=== PATIENT | male | born 1940 | race African-American/Black ===

== ENCOUNTER 2016-05-05 11:36 | Inpatient (IN) | payer MEDICARE, OTHER ==
[2016-05-05 12:26] LABS: ABSOLUTE EOSINOPHILS # (AUTO) 0.2 10^3/uL (0.0-0.6); ABSOLUTE LYMPHOCYTES (AUTO) 1.2 10^3/uL (0.5-4.7); ABSOLUTE MONOCYTES (AUTO) 1.5 10^3/uL (0.1-1.4); ABSOLUTE NEUT (AUTO) 13.3 10^3/uL (1.7-8.2); BASOPHILS % (AUTO) 0.3 % (0-2); EOSINOPHILS % (AUTO) 1.1 % (0-6); HEMATOCRIT 32.1 % (37.9-51.0); HEMOGLOBIN 10.4 g/dL (13.5-17.0); HGB HCT DIFFERENCE -0.9; LYMPHOCYTES % (AUTO) 7.5 % (13-45); MEAN CORPUSCULAR HGB CONC 32.5 g/dL (32.0-36.0); MEAN CORPUSCULAR VOLUME 86 fl (80-97); RED BLOOD COUNT 3.72 10^6/uL (4.35-5.55); RED CELL DISTRIBUTION WIDTH 15.2 % (11.5-14.0); SEGMENTED NEUTROPHILS % (AUTO) 82.1 % (42-78); WHITE BLOOD COUNT 16.2 10^3/uL (4.0-10.5)
[2016-05-05 12:52] LABS: ALANINE AMINOTRANSFERASE 79 U/L (21-72); ALBUMIN 3.4 g/dL (3.5-5.0); ALKALINE PHOSPHATASE 143 U/L (38-126); ANION GAP 14 (5-19); ASPARTATE AMINO TRANSFERASE 58 U/L (17-59); BILIRUBIN,TOTAL 0.5 mg/dL (0.2-1.3); BLOOD UREA NITROGEN 61 mg/dL (7-20); CALCIUM 9.8 mg/dL (8.4-10.2); CARBON DIOXIDE 24 mmol/L (22-30); CHLORIDE 104 mmol/L (98-107); CREATINE KINASE 1431 U/L (55-170); CREATININE RESULT 3.35 mg/dL (0.52-1.25); GLUCOSE 184 mg/dL (75-110); POTASSIUM 4.9 mmol/L (3.6-5.0); SODIUM 141.7 mmol/L (137-145); TOTAL PROTEIN 6.8 g/dL (6.3-8.2)
[2016-05-05 13:01] LABS: CREATINE KINASE MB 12.6 ng/mL (<4.55)
[2016-05-05 13:04] LABS: TROPONIN I 0.27 ng/mL
--- NOTE | 2016-05-05 13:25 | ER Document Report ---
ED Respiratory Problem - General Mode of Arrival: Ambulatory Information source: Patient TRAVEL OUTSIDE OF THE [place] IN LAST 30 DAYS: No <EMI BANUELOS - Last Filed: 05/05/16 16:18> <HUMBERTO QURESHI - Last Filed: 05/05/16 19:59> - General Chief Complaint: Nausea/Vomiting/Diarrhea Stated Complaint: DIFFICULTY BREATHING Notes: Patient is a 75 year old male that presents to the emergency department today with complaints of shortness of breath with a cough of a one week duration. Patient was seen at his primary care physicians office and he was sent here on an ambulance secondary to his concerning respiratory status. Patient states that he has had sweats, chills, and diaphoresis as well. (EMI BANUELOS) - Related Data Allergies/Adverse Reactions: morphine [Morphine] Allergy (Severe, Verified 06/27/15 00:40) Hallucinations, Agitation Penicillins Allergy (Severe, Verified 06/27/15 00:40) Hallucinations, Agitation Home Medications: Current Home Medications Aspirin [Aspirin 325 mg Tablet] 325 mg PO DAILY 05/05/16 [History] Atorvastatin Calcium [Lipitor 80 mg Tablet] 80 mg PO QHS 05/05/16 [History] Bumetanide [Bumex 2 mg Tablet] 2 mg PO DAILY 05/05/16 [History] Clopidogrel Bisulfate [Plavix 75 mg Tablet] 75 mg PO DAILY 05/05/16 [History] Desipramine HCl [Norpramin 50 mg Tablet] 50 mg PO DAILY 05/05/16 [History] Hydrocodone/Acetaminophen [[place] 5-325 mg Tablet] 1 tab PO Q4HP PRN 05/05/16 [ History] Insulin Glargine,Hum.rec.anlog [Lantus Solostar] 40 units SQ QHS 05/05/16 [ History] Insulin Lispro [Humalog] 20 unit SQ QAM 05/05/16 [History] Isosorb Dinit/Hydralazine HCl [Bidil 20-37.5 mg Tablet] 1 tab PO Q8 05/05/16 [ History] Losartan Potassium [Cozaar 100 mg Tablet] 100 mg PO QAM 05/05/16 [History] Multivitamin [Multivitamins] 1 cap PO DAILY 05/05/16 [History] Tamsulosin HCl [Flomax 0.4 mg Cap.sr] 0.4 mg PO DAILY 05/05/16 [History] Past Medical History - General Information source: Patient, [facility] Records - Social History Smoking Status: Former Smoker Cigarette use (# per day): Yes Frequency of alcohol use: None Drug Abuse: None Lives with: Family Family History: Reviewed & Not Pertinent - Past Medical History Cardiac Medical History: Reports: Hx Congestive Heart Failure, Hx Heart Attack, Hx Hypercholesterolemia, Hx Hypertension Endocrine Medical History: Reports: Hx Diabetes Mellitus Type 2 Renal/ Medical History: Reports: Hx Benign Prostatic Hyperplasia, Hx Kidney Stones GI Medical History: Reports: Hx Gastroesophageal Reflux Disease, Hx Ulcer Past Surgical History: Reports: Hx Cardiac Surgery - Defibrilator, Hx Pacemaker - Immunizations Hx Diphtheria, Pertussis, Tetanus Vaccination: Yes Hx Pneumococcal Vaccination: 04/26/11 <EMI BANUELOS - Last Filed: 05/05/16 16:18> - Social History Cigarette use (# per day): No Chew tobacco use (# tins/day): No Smoking Education Provided: No - Past Medical History Cardiac Medical History: Reports: Hx Coronary Artery Disease, Hx Peripheral Vascular Disease, Other - Pulmonary hypertension Pulmonary Medical History: Reports: Hx COPD Musculoskeltal Medical History: Reports Hx Arthritis Psychiatric Medical History: Reports: None Past Surgical History: Reports: Hx Cardiac Catheterization, Hx Coronary Stent <HUMBERTO QURESHI - Last Filed: 05/05/16 19:59> Review of Systems - Review of Systems Constitutional: See HPI, Chills, Diaphoresis EENT: See HPI, Nose congestion Cardiovascular: No symptoms reported Respiratory: See HPI, Cough, Short of breath Gastrointestinal: No symptoms reported Genitourinary: No symptoms reported Male Genitourinary: No symptoms reported Musculoskeletal: No symptoms reported Skin: No symptoms reported Hematologic/Lymphatic: No symptoms reported Neurological/Psychological: No symptoms reported -: Yes All other systems reviewed and negative <EMI BANUELOS - Last Filed: 05/05/16 16:18> Physical Exam - General General appearance: Alert - HEENT Head: Normocephalic, Atraumatic Eyes: Normal Extraocular movements intact: Yes Sinus: Other - congestion - Respiratory Respiratory status: No respiratory distress Chest status: Nontender Breath sounds: Nonproductive cough - frequent during exam, Wheezing - faint wheeze, mostly clear throughout - Cardiovascular Rhythm: Regular Heart sounds: Normal auscultation Murmur: No - Abdominal Inspection: Normal Distension: No distension - Extremities General upper extremity: Edema - hands bilaterally, Left > Right General lower extremity: Edema - bilaterally with chronic venous stasis changes bilaterally, ulcerations - Neurological Neuro grossly intact: Yes Cognition: Normal Speech: Normal - Psychological Associated symptoms: Normal affect, Normal mood - Skin Skin Temperature: Warm Skin Moisture: Dry Skin Color: Normal <LAKISHAEMI - Last Filed: 05/05/16 16:18> Course - Laboratory Result Diagrams: 05/05/16 12:10 05/05/16 12:10 <EMI BANUELOS - Last Filed: 05/05/16 16:18> - Laboratory Result Diagrams: 05/05/16 12:10 05/05/16 12:10 - Diagnostic Test Radiology reviewed: Image reviewed, Reports reviewed - Mild cardiomegaly with mild pulmonary vascular congestion - EKG Interpretation by Al EKG shows normal: Sinus rhythm, Intervals, QRS Complexes. abnormal: [place], ST-T Waves - Diffuse borderline T abnormalities Rate: Normal - 98 Rhythm: PVC's [place]/QRS: Right axis deviation Heart block present: 1st Degree - Consults Dr. Maddox Time consulted: 16:15 Consulted provider: will come to ER <HUMBERTO QURESHI - Last Filed: 05/05/16 19:59> - Re-evaluation Re-evalutation: 05/05/16 16:04 The patient does have history COPD, reports his breathing improved considerably with the breathing treatments. He continues to be tachypneic and unable to speak in more than 2-3 word sentences. His pulse ox is remaining at the 98-99% on room air level. Chest x-ray shows mild pulmonary vascular congestion. His BNP today is 25,200 and on 12/19/2015 it was 2,050. His BUN and creatinine are unchanged from previous lab work. The troponin is 0.270, this has been trending upward over the past few years when he comes to the hospital. He will be given IV Lasix to see if some of the fluid can come off. (HUMBERTO QURESHI) - Vital Signs Vital signs: Temp Pulse Resp BP Pulse Ox 23 H 153/93 H 100 05/05/16 18:01 05/05/16 18:01 05/05/16 19:00 (EMI BANUELOS) (HUMBERTO QURESHI) - Laboratory Laboratory results interpreted by me: 05/05/16 05/05/16 05/05/16 12:10 12:10 12:10 WBC 16.2 H RBC 3.72 L Hgb 10.4 L Hct 32.1 L RDW 15.2 H Seg Neutrophils % 82.1 H Lymphocytes % 7.5 L Absolute Neutrophils 13.3 H Absolute Monocytes 1.5 H BUN 61 H Creatinine 3.35 H Est GFR ( Amer) 22 L Est GFR (Non-Af Amer) 18 L Glucose 184 H POC Glucose ALT 79 H Alkaline Phosphatase 143 H Creatine Kinase 1431 H CK-MB (CK-2) 12.60 H NT-Pro-B Natriuret Pep Albumin 3.4 L Urine Protein Urine Glucose (UA) Urine Blood Urine Ascorbic Acid 05/05/16 05/05/16 05/05/16 12:10 13:03 16:22 WBC RBC Hgb Hct RDW Seg Neutrophils % Lymphocytes % Absolute Neutrophils Absolute Monocytes BUN Creatinine Est GFR ( Amer) Est GFR (Non-Af Amer) Glucose POC Glucose 212 H ALT Alkaline Phosphatase Creatine Kinase CK-MB (CK-2) NT-Pro-B Natriuret Pep 64127 H Albumin Urine Protein >=500 H Urine Glucose (UA) >=500 H Urine Blood MODERATE H Urine Ascorbic Acid 40 H (EMI BANUELOS) (HUMBERTO QURESHI) Critical Care Note - Critical Care Note Total time excluding time spent on procedures (mins): 35 <HUMBERTO QURESHI - Last Filed: 05/05/16 19:59> Discharge <EMI BANUELOS - Last Filed: 05/05/16 16:18> - Discharge Admitting Provider: Hospitalist Unit Admitted: IMCU <HUMBERTO QURESHI - Last Filed: 05/05/16 19:59> - Discharge Clinical Impression: COPD exacerbation, Chronic renal failure, stage 4 (severe), Peripheral edema Congestive heart failure Qualifiers: Congestive heart failure type: unspecified congestive heart failure type Congestive heart failure chronicity: acute on chronic Qualified Code(s): I50.9 - Heart failure, unspecified Diabetes Qualifiers: Diabetes mellitus type: type 2 Diabetes mellitus complication status: with unspecified complications Diabetes mellitus penitentiary insulin use: with penitentiary use Qualified Code(s): E11.8 - Type 2 diabetes mellitus with unspecified complications; Z79.4 - technician terminal and repeater (current) use of insulin Rhabdomyolysis Qualifiers: Rhabdomyolysis type: non-traumatic Qualified Code(s): M62.82 - Rhabdomyolysis Condition: Good Disposition: ADMITTED INPATIENT Scribe Attestation: 05/05/16 16:17 I personally performed the services described in the documentation, reviewed and edited the documentation which was dictated to the scribe in my presence, and it accurately records my words and actions. (HUMBERTO QURESHI) Scribe Documentation - Scribe acting as scribe for :: Rivas <EMI BANUELOS - Last Filed: 05/05/16 16:18>
[2016-05-05] MEDS ORDERED: IPRATROPIUM/ALBUTEROL 0.5-2.5 MG/3 ML AMPUL NEB ONE (14:55)
[2016-05-05] MEDS ORDERED: FUROSEMIDE INJ/PF 100 MG/10 ML SDV IV ONE (16:00)
[2016-05-05 16:43] LABS: APPEARANCE,URINE SLIGHTLY-CLOUDY; BILIRUBIN,URINE NEGATIVE (NEGATIVE); GLUCOSE, URINE >=500 mg/dL (NEGATIVE); KETONES,URINE NEGATIVE (NEGATIVE); LEUKOCYTE ESTERASE,URINE NEGATIVE (NEGATIVE); NITRITE,URINE NEGATIVE (NEGATIVE); PROTEIN,URINE >=500 mg/dL (NEGATIVE); URINE SPECIFIC GRAVITY 1.018; UROBILINOGEN,URINE NEGATIVE mg/dL (<2.0)
--- NOTE | 2016-05-05 17:00 | EKG REPORT ---
SEVERITY:- ABNORMAL ECG - SINUS TACHYCARDIA VENTRICULAR PREMATURE COMPLEX FIRST DEGREE AV BLOCK BORDERLINE RIGHT AXIS DEVIATION BORDERLINE T ABNORMALITIES, DIFFUSE LEADS : Confirmed by: Shanna Kruse MD 05-May-2016 16:58:30
[2016-05-05] MEDS ORDERED: ACETAMINOPHEN 325 MG TABLET PO PRN (17:56)
[2016-05-05] MEDS ORDERED: ONDANSETRON HCL INJ/PF 4 MG/2 ML SDV IV PRN (17:56)
[2016-05-05] MEDS ORDERED: HYDROCODONE BIT/HOMATROPINE 5-1.5 MG TABLET PO PRN (18:11)
[2016-05-05] MEDS ORDERED: ALBUTEROL SULFATE 0.083% NEB 2.5 MG/3 ML AMPUL NEB PRN (18:13)
--- NOTE | 2016-05-05 18:43 | PDOC H&P ---
History of Present Illness Admission Date/PCP: 05/05/16 16:53 KRISTIN ANGELO Patient complains of: Shortness of breath with cough for 2 weeks History of Present Illness: LATASHA BARLOW is a 75 year old male Who presents to the emergency department from home with the assistance of his family after being sick at home for the last 2 weeks. He states it all started with a dry hacking cough and was quickly followed by dyspnea on exertion and then dyspnea at rest. He is also noticed increased swelling of his lower extremities and weight gain of more than 5 pounds during the first week in spite of escalating doses of diuretics. He notes the cough is often paroxysmal and leads to emesis and is also associated with left chest wall pain described as sharp stabbing grabbing tearing type pain only with deep inspiration or cough , alleviated with rest, nonradiating and without other associated symptoms. He reports subjective fevers and chills at home and no sick contacts among his family members. He has a known history of ischemic cardiomyopathy, last echocardiogram was in 2012 and showed an EF of 45-50%, left atrial enlargement, severe pulmonary hypertension, and moderate tricuspid regurgitation. He has known coronary artery disease status post stents 4 or 5 he's not sure. He thinks he had 3 stents placed the first time followed by 2 stents thereafter. He has supplemental O2 available to him at home to use on an as-needed basis. Evaluation in the emergency department is consistent with acute on chronic systolic heart failure with probable bacterial bronchitis and possible bacterial pneumonia. We were asked to admit for further investigation and management. Past Medical History Cardiac Medical History: Reports: Congestive Heart Failure, Coronary Artery Disease, Myocardial Infarction, Hyperlipidema, Hypertension, Peripheral Vascular Disease, Other - Pulmonary hypertension Pulmonary Medical History: Reports: Chronic Obstructive Pulmonary Disease (COPD) Denies: Tuberculosis Neurological Medical History: Denies: Seizures Endocrine Medical History: Reports: Diabetes Mellitus Type 2 Renal/ Medical History: Reports: Chronic Kidney Disease - stage4, followed by dr rasheed GI Medical History: Reports: Gastroesophageal Reflux Disease Musculoskeltal Medical History: Reports: Arthritis Psychiatric Medical History: Reports: None Denies: Depression Hematology: Reports: Anemia Past Surgical History Past Surgical History: Reports: Cardiac Catheterization, Coronary Stent, Pacemaker - PPM removed and replaced by ICD, Other - TURP Social History Lives with: Family Smoking Status: Former Smoker Frequency of Alcohol Use: None Hx Recreational Drug Use: No Drugs: None Hx Prescription Drug Abuse: No Family History Family History: Reviewed & Not Pertinent Parental Family History Reviewed: Yes Children Family History Reviewed: Yes Sibling(s) Family History Reviewed.: Yes Medication/Allergy Home Medications: Aspirin [Aspirin 325 mg Tablet] 325 mg PO DAILY 05/05/16 Atorvastatin Calcium [Lipitor 80 mg Tablet] 80 mg PO QHS 05/05/16 Bumetanide [Bumex 2 mg Tablet] 2 mg PO DAILY 05/05/16 Clopidogrel Bisulfate [Plavix 75 mg Tablet] 75 mg PO DAILY 05/05/16 Desipramine HCl [Norpramin 50 mg Tablet] 50 mg PO DAILY 05/05/16 Hydrocodone/Acetaminophen [[place] 5-325 mg Tablet] 1 tab PO Q4HP PRN 05/05/16 Insulin Glargine,Hum.rec.anlog [Lantus Solostar] 40 units SQ QHS 05/05/16 Insulin Lispro [Humalog] 20 unit SQ QAM 05/05/16 Isosorb Dinit/Hydralazine HCl [Bidil 20-37.5 mg Tablet] 1 tab PO Q8 05/05/16 Losartan Potassium [Cozaar 100 mg Tablet] 100 mg PO QAM 05/05/16 Multivitamin [Multivitamins] 1 cap PO DAILY 05/05/16 Tamsulosin HCl [Flomax 0.4 mg Cap.sr] 0.4 mg PO DAILY 05/05/16 Allergies/Adverse Reactions: morphine [Morphine] Allergy (Severe, Verified 06/27/15 00:40) Hallucinations, Agitation Penicillins Allergy (Severe, Verified 06/27/15 00:40) Hallucinations, Agitation Review of Systems Constitutional: ABSENT: chills, fever(s), headache(s), weight gain, weight loss Eyes: ABSENT: visual disturbances Ears: ABSENT: hearing changes Cardiovascular: PRESENT: chest pain, dyspnea on exertion, edema, orthropnea. ABSENT: palpitations Respiratory: PRESENT: cough, dyspnea. ABSENT: hemoptysis Gastrointestinal: PRESENT: vomiting. ABSENT: abdominal pain, constipation, diarrhea, hematemesis, hematochezia, nausea Genitourinary: ABSENT: dysuria, hematuria Musculoskeletal: ABSENT: joint swelling Integumentary: ABSENT: rash, wounds Neurological: ABSENT: abnormal gait, abnormal speech, confusion, dizziness, focal weakness, syncope Psychiatric: ABSENT: anxiety, depression, homidical ideation, suicidal ideation Endocrine: ABSENT: cold intolerance, heat intolerance, polydipsia, polyuria Hematologic/Lymphatic: ABSENT: easy bleeding, easy bruising Physical Exam Vital Signs: Temp Pulse Resp BP Pulse Ox 21 H 169/94 H 98 05/05/16 17:00 05/05/16 17:01 05/05/16 17:01 General appearance: PRESENT: mild distress, well-developed, well-nourished Head exam: PRESENT: atraumatic, normocephalic Eye exam: PRESENT: conjunctiva pink, EOMI, PERRLA. ABSENT: scleral icterus Mouth exam: PRESENT: dry mucosa, tongue midline Throat exam: ABSENT: post pharyngeal erythema, tonsillar erythema Neck exam: PRESENT: JVD - only 2cm. ABSENT: carotid bruit, lymphadenopathy, thyromegaly Respiratory exam: PRESENT: chest wall tenderness - left chest wall, rales - coarse at the bases and fine at the apices. ABSENT: rhonchi, wheezes Cardiovascular exam: PRESENT: RRR. ABSENT: diastolic murmur, rubs, systolic murmur Pulses: PRESENT: normal dorsalis pedis pul Vascular exam: PRESENT: normal capillary refill GI/Abdominal exam: PRESENT: mass, normal bowel sounds, organolmegaly, soft. ABSENT: distended, guarding, rebound, tenderness Rectal exam: PRESENT: deferred Extremities exam: PRESENT: full ROM, pedal edema, +2 edema. ABSENT: calf tenderness, clubbing Musculoskeletal exam: PRESENT: full ROM Neurological exam: PRESENT: alert, awake, oriented to person, oriented to place , oriented to time, oriented to situation, motor sensory deficit Psychiatric exam: PRESENT: appropriate affect, normal mood. ABSENT: homicidal ideation, suicidal ideation Skin exam: PRESENT: cyanosis, rash - vitiligo and acrocyanotic changes BLEs, warm. ABSENT: dry Results Laboratory Results: Labs- All tests 24 hr 05/05/16 05/05/16 05/05/16 12:10 12:10 12:10 WBC 16.2 H RBC 3.72 L Hgb 10.4 L Hct 32.1 L MCV 86 MCH 28.0 MCHC 32.5 RDW 15.2 H Plt Count 319 Seg Neutrophils % 82.1 H Lymphocytes % 7.5 L Monocytes % 9.0 Eosinophils % 1.1 Basophils % 0.3 Absolute Neutrophils 13.3 H Absolute Lymphocytes 1.2 Absolute Monocytes 1.5 H Absolute Eosinophils 0.2 Absolute Basophils 0.0 Sodium 141.7 Potassium 4.9 Chloride 104 Carbon Dioxide 24 Anion Gap 14 BUN 61 H Creatinine 3.35 H Est GFR ( Amer) 22 L Est GFR (Non-Af Amer) 18 L Glucose 184 H POC Glucose Calcium 9.8 Total Bilirubin 0.5 Direct Bilirubin 0.0 AST 58 ALT 79 H Alkaline Phosphatase 143 H Creatine Kinase 1431 H CK-MB (CK-2) 12.60 H Troponin I 0.270 NT-Pro-B Natriuret Pep Total Protein 6.8 Albumin 3.4 L Urine Color Urine Appearance Urine pH Ur Specific [place] Urine Protein Urine Glucose (UA) Urine Ketones Urine Blood Urine Nitrite Urine Bilirubin Urine Urobilinogen Ur Leukocyte Esterase Urine WBC (Auto) Urine RBC (Auto) Squamous Epi Cells Auto Urine Mucus (Auto) Urine Ascorbic Acid 05/05/16 05/05/16 05/05/16 12:10 13:03 16:22 WBC RBC Hgb Hct MCV MCH MCHC RDW Plt Count Seg Neutrophils % Lymphocytes % Monocytes % Eosinophils % Basophils % Absolute Neutrophils Absolute Lymphocytes Absolute Monocytes Absolute Eosinophils Absolute Basophils Sodium Potassium Chloride Carbon Dioxide Anion Gap BUN Creatinine Est GFR ( Amer) Est GFR (Non-Af Amer) Glucose POC Glucose 212 H Calcium Total Bilirubin Direct Bilirubin AST ALT Alkaline Phosphatase Creatine Kinase CK-MB (CK-2) Troponin I NT-Pro-B Natriuret Pep 64181 H Total Protein Albumin Urine Color YELLOW Urine Appearance SLIGHTLY-CLOUDY Urine pH 5.0 Ur Specific [place] 1.018 Urine Protein >=500 H Urine Glucose (UA) >=500 H Urine Ketones NEGATIVE Urine Blood MODERATE H Urine Nitrite NEGATIVE Urine Bilirubin NEGATIVE Urine Urobilinogen NEGATIVE Ur Leukocyte Esterase NEGATIVE Urine WBC (Auto) 2 Urine RBC (Auto) 1 Squamous Epi Cells Auto <1 Urine Mucus (Auto) RARE Urine Ascorbic Acid 40 H EKG Comments: Normal sinus rhythm with interventricular conduction delay suggestive of an early left bundle branch block incomplete corrected QTC is 460 Impressions: Chest X-Ray 05/05/16 11:37 IMPRESSION: Mild cardiomegaly and mild vascular congestion. Status: Image reviewed by me Assessment & Plan - Diagnosis (1) Acute on chronic systolic heart failure Is this a current diagnosis for this admission?: YesPlan: Patient is unsure of his usual diuretic dose so we'll begin with Lasix 40 mg IV twice a day and titrate to effect paying close attention to his renal function and volume status. Will hold beta batsheva use and nitroglycerin use for now pending further evaluation. Hold LEELEE inhibitor and ARB use due to chronic kidney disease stage IV. (2) Acute bacterial bronchitis Is this a current diagnosis for this admission?: YesPlan: Start empiric Rocephin and Zithromax. Supplemental O2 as needed. Nebulizers as needed. (3) Chest pain, pleuritic Is this a current diagnosis for this admission?: YesPlan: Chest wall pain is reproducible both on exam and with inspiration I do not think this is cardiac in nature. I believe his elevated troponin is due to his chronic kidney disease and the acuity of his illness. Add mild cough suppressant (4) COPD (chronic obstructive pulmonary disease) Qualifiers: COPD type: emphysema Emphysema type: unspecified Qualified Code( s): J43.9 - Emphysema, unspecified Is this a current diagnosis for this admission?: YesPlan: As above (5) CAD (coronary artery disease), [place] coronary artery Qualifiers: [place] vs. transplanted heart: [place] heart Associated angina: without angina Qualified Code(s): I25.10 - Atherosclerotic heart disease of [place] coronary artery without angina pectoris Is this a current diagnosis for this admission?: YesPlan: Trend cardiac enzymes and BNP (6) Cardiac dysrhythmia, unspecified Qualifiers: Arrhythmia type: unspecified cardiac arrhythmia Qualified Code(s): I49.9 - Cardiac arrhythmia, unspecified Is this a current diagnosis for this admission?: YesPlan: has ICD in place (7) Chronic renal failure, stage 4 (severe) Is this a current diagnosis for this admission?: YesPlan: Careful attention will need to be paid to his volume status and renal function; consult nephrology for decline in function. (8) Diabetes Qualifiers: Diabetes mellitus type: type 2 Diabetes mellitus complication status: with unspecified complications Diabetes mellitus interpersonal communications professor insulin use: with interpersonal communications professor use Qualified Code(s): E11.8 - Type 2 diabetes mellitus with unspecified complications; Z79.4 - halfway (current) use of insulin Is this a current diagnosis for this admission?: YesPlan: Cover with basal bolus insulin - Time Time Spent: 30 to 50 Minutes Medications reviewed and adjusted accordingly: Yes Anticipated discharge: Home Within: Other - Once patient stabilizes
[2016-05-05] MEDS ORDERED: DEXTROSE 40% GEL 15 GM TUBE PO PRN ×2 (18:53)
[2016-05-05] MEDS ORDERED: GLUCAGON,HUMAN RECOMB 1 MG INJ IM PRN (18:53)
[2016-05-05] MEDS ORDERED: DEXTROSE 50%-WATER 25 GM/50 ML DISP.SYRIN IV PRN ×2 (18:53)
[2016-05-05] MEDS ORDERED: HYDROCODONE/ACETAMINOPHEN 5-325 MG TABLET PO PRN (18:56)
[2016-05-05] MEDS ORDERED: CEFTRIAXONE 1 GM/D5W RTU 1 GM/50 ML RTUPB IV SCH (19:00)
[2016-05-05 19:37] LABS: CREATINE KINASE MB 11.7 ng/mL (<4.55)
[2016-05-05 19:45] LABS: TROPONIN I 0.249 ng/mL
[2016-05-05] MEDS ORDERED: INSULIN GLARGINE,HUM.REC.ANLOG 300 UNIT/3 ML INSULN.PEN SUBCUT SCH (22:00)
[2016-05-05] MEDS: ISOSORB DINIT/HYDRALAZINE HCL 20-37.5 MG TABLET PO SCH (22:45)
[2016-05-05] MEDS: FUROSEMIDE INJ/PF 40 MG/4 ML SDV IV SCH (22:46)
[2016-05-05] MEDS: PANTOPRAZOLE SODIUM 40 MG VIAL IV SCH (22:46)
[2016-05-05] MEDS: HEPARIN SOD (PORCINE) 5,000 UNIT/ML 1 ML SYRINGE SUBCUT SCH (22:46)
[2016-05-05] MEDS: AZITHROMYCIN 500 MG in DEXTROSE 5%-WATER 250 ML IV SCH (22:47)
[2016-05-05] MEDS: INSULIN LISPRO 100 UNIT/ML 3 ML VIAL SUBCUT PRN (22:47)
[2016-05-06] MEDS: CEFTRIAXONE 1 GM/D5W RTU 1 GM/50 ML RTUPB IV SCH (00:31)
[2016-05-06 01:59] LABS: CREATINE KINASE MB 8.95 ng/mL (<4.55)
[2016-05-06 02:04] LABS: TROPONIN I 0.206 ng/mL
[2016-05-06] MEDS: HEPARIN SOD (PORCINE) 5,000 UNIT/ML 1 ML SYRINGE SUBCUT SCH ×3 (05:44→22:49)
[2016-05-06] MEDS: ISOSORB DINIT/HYDRALAZINE HCL 20-37.5 MG TABLET PO SCH ×3 (05:44→22:50)
[2016-05-06] MEDS: INSULIN LISPRO 100 UNIT/ML 3 ML VIAL SUBCUT PRN ×4 (07:42→22:49)
[2016-05-06 07:46] LABS: HEMATOCRIT 28.3 % (37.9-51.0); HEMOGLOBIN 9.2 g/dL (13.5-17.0); HGB HCT DIFFERENCE -0.7; MEAN CORPUSCULAR HEMOGLOBIN 27.7 pg (27.0-33.4); MEAN CORPUSCULAR HGB CONC 32.5 g/dL (32.0-36.0); MEAN CORPUSCULAR VOLUME 85 fl (80-97); RED BLOOD COUNT 3.31 10^6/uL (4.35-5.55); RED CELL DISTRIBUTION WIDTH 15.6 % (11.5-14.0); WHITE BLOOD COUNT 16.3 10^3/uL (4.0-10.5)
[2016-05-06 07:48] LABS: CREATINE KINASE MB 7.07 ng/mL (<4.55); MAGNESIUM 2.1 mg/dL (1.6-2.3); PHOSPHORUS 3.7 mg/dL (2.5-4.5)
[2016-05-06 08:17] LABS: TROPONIN I 0.211 ng/mL
[2016-05-06 08:29] LABS: BASOPHILS % (MANUAL) 0 % (0-2); EOSINOPHILS % (MANUAL) 0 % (0-6); LYMPHOCYTES % (MANUAL) 2 % (13-45); TOTAL CELLS COUNTED 100
[2016-05-06 08:30] LABS: ANISOCYTOSIS 1+
[2016-05-06] MEDS: CLOPIDOGREL BISULFATE 75 MG TABLET PO SCH (09:03)
[2016-05-06] MEDS: MULTIVITAMIN TABLET PO SCH (09:03)
[2016-05-06] MEDS: TAMSULOSIN HCL 0.4 MG CAP.SR.24H PO SCH (09:03)
[2016-05-06] MEDS: PANTOPRAZOLE SODIUM 40 MG VIAL IV SCH ×2 (09:03→22:49)
[2016-05-06] MEDS: ASPIRIN 81 MG TABLET, ENT COATED PO SCH (09:03)
[2016-05-06] MEDS: FUROSEMIDE INJ/PF 40 MG/4 ML SDV IV SCH ×2 (09:04→22:49)
[2016-05-06] MEDS ORDERED: (PENDING PHARMACY ID) (Multivitamin [Multivitamins] 1 CAP) PO SCH (10:00)
--- NOTE | 2016-05-06 13:00 | PDOC PROGRESS REPORT ---
Subjective Progress Note for:: 05/06/16 Subjective:: LATASHA BARLOW is a 75 year old male Who presented to the emergency department from home with the assistance of his family after being sick at home for the last 2 weeks. He states it all started with a dry hacking cough and was quickly followed by dyspnea on exertion and then dyspnea at rest. He is also noticed increased swelling of his lower extremities and weight gain of more than 5 pounds during the first week in spite of escalating doses of diuretics. He notes the cough is often paroxysmal and leads to emesis and is also associated with left chest wall pain described as sharp stabbing grabbing tearing type pain only with deep inspiration or cough, alleviated with rest, nonradiating and without other associated symptoms. He reports subjective fevers and chills at home and no sick contacts among his family members. He has a known history of ischemic cardiomyopathy, last echocardiogram was in 2012 and showed an EF of 45-50%, left atrial enlargement, severe pulmonary hypertension, and moderate tricuspid regurgitation. He has known coronary artery disease status post stents 4 or 5 he's not sure. He thinks he had 3 stents placed the first time followed by 2 stents thereafter. He has supplemental O2 available to him at home to use on an as-needed basis. Evaluation in the emergency department is consistent with acute on chronic systolic heart failure with probable bacterial bronchitis and possible bacterial pneumonia. We were asked to admit for further investigation and management. Symptoms have improved with treatment. ROS: Total 10 systems are reviewed with the patient pertinent positives and negatives noted above remaining systems are negative. Physical Exam Vital Signs: Temp Pulse Resp BP Pulse Ox 97.4 F 88 19 137/67 H 98 05/06/16 11:34 05/06/16 11:34 05/06/16 11:34 05/06/16 11:34 05/06/16 11:34 Pulse Oximeter Continuous Start: 05/05/16 17: 58 Freq: RTQ4 Status: Active Document 05/06/16 07:57 [facility] (Rec: 05/06/16 07:57 [facility] [email or web address]) Pulse Oximetry Assessment Oxygen Saturation (92-100) 100 Oxygen Delivery Method Room Air Equipment Usage Equipment in Use Continuous SpO2 Machine # 9 Intake & Output 05/05/16 05/06/16 05/07/16 06:59 06:59 06:59 Intake Total 562 Output Total 575 Balance -13 Weight 90.4 kg General appearance: PRESENT: no acute distress, cooperative Eye exam: PRESENT: EOMI, PERRLA Mouth exam: PRESENT: moist, other - No oral lesions Neck exam: PRESENT: full ROM. ABSENT: JVD - JVD resolved Respiratory exam: PRESENT: crackles - Bilateral bases. ABSENT: accessory muscle use, rhonchi, wheezes Cardiovascular exam: PRESENT: RRR. ABSENT: systolic murmur Pulses: PRESENT: normal carotid pulses, normal radial pulses GI/Abdominal exam: PRESENT: normal bowel sounds, soft. ABSENT: tenderness Extremities exam: PRESENT: +2 edema - Unchanged. ABSENT: calf tenderness Musculoskeletal exam: PRESENT: full ROM - Strength about 4 out of 5 in all major muscle groups Neurological exam: PRESENT: alert, awake, oriented to time, oriented to situation Psychiatric exam: PRESENT: appropriate affect, normal mood Skin exam: PRESENT: normal color - Overall color improved. ABSENT: dry Results Laboratory Results: 05/06/16 05:32 05/06/16 05/06/16 05:32 05:32 WBC 16.3 H RBC 3.31 L Hgb 9.2 L Hct 28.3 L MCV 85 MCH 27.7 MCHC 32.5 RDW 15.6 H Plt Count 278 Seg Neutrophils % Not Reportable Lymphocytes % Not Reportable Monocytes % Not Reportable Eosinophils % Not Reportable Basophils % Not Reportable Absolute Neutrophils Not Reportable Absolute Lymphocytes Not Reportable Absolute Monocytes Not Reportable Absolute Eosinophils Not Reportable Absolute Basophils Not Reportable Phosphorus 3.7 Magnesium 2.1 05/05/16 05/05/16 05/06/16 18:58 18:58 00:28 Creatine Kinase 1377 H 1204 H CK-MB (CK-2) 11.70 H Troponin I 0.249 NT-Pro-B Natriuret Pep 05/06/16 05/06/16 05/06/16 00:28 05:32 05:32 Creatine Kinase 997 H CK-MB (CK-2) 8.95 H 7.07 H Troponin I 0.206 0.211 NT-Pro-B Natriuret Pep 82511 H Impressions: Chest X-Ray 05/05/16 11:37 IMPRESSION: Mild cardiomegaly and mild vascular congestion. Assessment & Plan - Diagnosis (1) Acute on chronic systolic heart failure Is this a current diagnosis for this admission?: YesPlan: Continue Lasix 40 mg IV twice a day and titrate to effect paying close attention to his renal function and volume status. Will hold beta batsheva use and nitroglycerin use for now pending further evaluation. Hold LEELEE inhibitor and ARB use due to chronic kidney disease stage IV. LV function still unknown awaiting echocardiogram results (2) Acute bacterial bronchitis Is this a current diagnosis for this admission?: YesPlan: Improved. Continue Rocephin and Zithromax. Supplemental O2 as needed. Nebulizers as needed. (3) Chest pain, pleuritic Is this a current diagnosis for this admission?: YesPlan: Resolved. Chest wall pain is reproducible both on exam and with inspiration I do not think this is cardiac in nature. I believe his elevated troponin is due to his chronic kidney disease and the acuity of his illness. Add mild cough suppressant (4) COPD (chronic obstructive pulmonary disease) Qualifiers: COPD type: emphysema Emphysema type: unspecified Qualified Code( s): J43.9 - Emphysema, unspecified Is this a current diagnosis for this admission?: YesPlan: As above, still no evidence for an acute exacerbation, no bronchospasm evident on exam (5) CAD (coronary artery disease), [place] coronary artery Qualifiers: [place] vs. transplanted heart: [place] heart Associated angina: without angina Qualified Code(s): I25.10 - Atherosclerotic heart disease of [place] coronary artery without angina pectoris Is this a current diagnosis for this admission?: YesPlan: cardiac enzymes have trended flat and BNP unchanged. Review the old record indicates his cardiac enzymes have been abnormal for years often to the same level; as his chest pain is reproducible on exam no further intervention is indicated at this time (6) Cardiac dysrhythmia, unspecified Qualifiers: Arrhythmia type: unspecified cardiac arrhythmia Qualified Code(s): I49.9 - Cardiac arrhythmia, unspecified Is this a current diagnosis for this admission?: YesPlan: has ICD in place; no evidence for cardiac dysrhythmia noted on telemetry monitoring overnight (7) Chronic renal failure, stage 4 (severe) Is this a current diagnosis for this admission?: YesPlan: Stable. Repeat Chem-7 in the morning. Careful attention will need to be paid to his volume status and renal function; consult nephrology for decline in function. (8) Diabetes Qualifiers: Diabetes mellitus type: type 2 Diabetes mellitus complication status: with unspecified complications Diabetes mellitus terminal operator insulin use: with terminal operator use Qualified Code(s): E11.8 - Type 2 diabetes mellitus with unspecified complications; Z79.4 - [facility] (current) use of insulin Is this a current diagnosis for this admission?: YesPlan: Poorly controlled hemoglobin A1c greater than 11; increase basal and continue to Cover with bolus insulin (9) Weakness generalized Is this a current diagnosis for this admission?: YesPlan: Start physical therapy, consult case management for rehabilitation options. Patient's is disabled at home and unable to care for him alone. - Time Time Spent with patient: 35 or more minutes Anticipated discharge: Other - Home with home health versus SNF depending on clinical course Within: within 48 hours
--- NOTE | 2016-05-06 15:31 | Physician Advisory Note ---
Physician Advisor ProgressNote .: Pursuant to the plan for [facility], I have reviewed the medical record for this patient. Physician Advisor Statement: Excellent documentation of co-morbidities overall! Possible documentation opportunities if attending agrees: 1. "CP, likely due to " [please spell out causes explicitly for coders - 'noncardiac' is not sufficient] Thanks for your help with documentation accuracy/specificity improvement! Adrianne Gipson MD [facility] Physician Advisor, Fellow of Hospital Medicine
--- NOTE | 2016-05-06 18:48 | XCELERA REPORT ---
[address] [address] Transthoracic Echocardiogram Report Name: LATASHA BARLOW Age: 75 yrs Gender: Male : 1940 Patient Status: Inpatient Patient Location: [id number]\A Study Date: 05/06/2016 03:26 PM Height: 67 in Weight: 180 lb BSA: 1.9 m2 Procedure: A complete two-dimensional transthoracic echocardiogram was performed (2D, M-mode, spectral and color flow Doppler). The study was technically difficult with many images being suboptimal in quality. Reason For Study: chf Ordering Physician: WING MCKEON Performed By: Manasa Perez Interpretation Summary LV EF is 40% Left ventricular systolic function is mild to moderately reduced. Doppler measurements suggest pseudonormalized left ventricular relaxation, which is associated with grade II/IV or mild to moderate diastolic dysfunction There is mild concentric left ventricular hypertrophy. The left ventricle is grossly normal size. There is mild to moderate global hypokinesis of the left ventricle. The right ventricular systolic function is mildly reduced. The right ventricle is mild to moderately dilated. The left atrium is moderately dilated. The right atrium is mild to moderately dilated. There is a mild amount of mitral regurgitation There is no mitral valve stenosis. No aortic regurgitation is present. There is no aortic valve stenosis There is a mild amount of tricuspid regurgitation There is moderate to severe pulmonary hypertension by echo Right ventricular systolic pressure is estimated to be elevated at 50- 60mmHg. The aortic root is not well visualized. The inferior vena cava appeared normal and decreased > 50% with respiration (RAP 5-10 mmHg) There is no pericardial effusion. MMode/2D Measurements \T\ Calculations RVDd: 4.0 cm LVIDd: 5.5 cm FS: 20.0 % Ao root diam: 3.1 cm IVSd: 0.96 cm LVIDs: 4.4 cm EDV(Teich): 147.5 ml LVPWd: 1.00 cm ESV(Teich): 87.7 ml Ao root area: 7.4 cm2 EF(Teich): 40.5 % LA dimension: 4.5 cm Doppler Measurements \T\ Calculations MV E max heriberto: MV P1/2t max heriberto: Ao V2 max: LV V1 max P.9 cm/sec 120.9 cm/sec 135.1 cm/sec 4.5 mmHg MV A max heriberto: MV P1/2t: 50.7 msec Ao max PG: LV V1 max: 51.3 cm/sec 7.3 mmHg 106.1 cm/sec MV E/A: 2.4 MVA(P1/2t): 4.3 cm2 MV dec slope: 698.0 cm/sec2 MV dec time: 0.17 sec PA V2 max: PI end-d heriberto: TR max heriberto: 80.5 cm/sec 176.5 cm/sec 384.1 cm/sec PA max PG: TR max P.6 mmHg 59.0 mmHg Left Ventricle The left ventricle is grossly normal size. There is mild concentric left ventricular hypertrophy. Left ventricular systolic function is mild to moderately reduced. LV EF is 40%. Doppler measurements suggest pseudonormalized left ventricular relaxation, which is associated with grade II/IV or mild to moderate diastolic dysfunction. There is mild to moderate global hypokinesis of the left ventricle. Right Ventricle The right ventricle is mild to moderately dilated. There is normal right ventricular wall thickness. The right ventricular systolic function is mildly reduced. Atria The right atrium is mild to moderately dilated. The left atrium is moderately dilated. Interarterial septum not well visualized and not well dopplered. Cannot comment on ASD/PFO presence. Mitral Valve The mitral valve leaflets are sclerotic, but show no functional abnormalities. There is no mitral valve stenosis. There is a mild amount of mitral regurgitation. Aortic Valve The aortic valve is grossly normal. There is no aortic valve stenosis. No aortic regurgitation is present. Tricuspid Valve The tricuspid valve is not well visualized, but is grossly normal. There is no tricuspid stenosis. There is a mild amount of tricuspid regurgitation. There is moderate to severe pulmonary hypertension by echo. Right ventricular systolic pressure is estimated to be elevated at 50-60mmHg. Pulmonic Valve The pulmonic valve is not well visualized. Great Vessels The aortic root is not well visualized. The inferior vena cava appeared normal and decreased > 50% with respiration (RAP 5-10 mmHg). Effusions There is no pericardial effusion. Incidental Findings Pacemaker wire noted. : WING MCKEON > Vani Suero
[2016-05-06] MEDS: INSULIN GLARGINE,HUM.REC.ANLOG 300 UNIT/3 ML INSULN.PEN SUBCUT SCH (22:49)
[2016-05-06] MEDS: AZITHROMYCIN 500 MG in DEXTROSE 5%-WATER 250 ML IV SCH (22:50)
[2016-05-07] MEDS: CEFTRIAXONE 1 GM/D5W RTU 1 GM/50 ML RTUPB IV SCH (01:01)
[2016-05-07 05:15] LABS: ABSOLUTE BASOPHILS # (AUTO) 0.1 10^3/uL (0.0-0.2); ABSOLUTE EOSINOPHILS # (AUTO) 0.2 10^3/uL (0.0-0.6); ABSOLUTE LYMPHOCYTES (AUTO) 1.8 10^3/uL (0.5-4.7); ABSOLUTE NEUT (AUTO) 10.3 10^3/uL (1.7-8.2); BASOPHILS % (AUTO) 0.7 % (0-2); EOSINOPHILS % (AUTO) 1.5 % (0-6); HEMATOCRIT 27.2 % (37.9-51.0); HEMOGLOBIN 9.2 g/dL (13.5-17.0); HGB HCT DIFFERENCE 0.4; LYMPHOCYTES % (AUTO) 13.6 % (13-45); MEAN CORPUSCULAR HEMOGLOBIN 28.5 pg (27.0-33.4); MEAN CORPUSCULAR HGB CONC 33.9 g/dL (32.0-36.0); MEAN CORPUSCULAR VOLUME 84 fl (80-97); MONOCYTES % (AUTO) 7.3 % (3-13); RED BLOOD COUNT 3.23 10^6/uL (4.35-5.55); RED CELL DISTRIBUTION WIDTH 15.8 % (11.5-14.0); SEGMENTED NEUTROPHILS % (AUTO) 76.9 % (42-78); WHITE BLOOD COUNT 13.4 10^3/uL (4.0-10.5)
[2016-05-07 05:28] LABS: ANION GAP 11 (5-19); BLOOD UREA NITROGEN 66 mg/dL (7-20); CALCIUM 9.4 mg/dL (8.4-10.2); CARBON DIOXIDE 23 mmol/L (22-30); CHLORIDE 104 mmol/L (98-107); GLUCOSE 132 mg/dL (75-110); POTASSIUM 4.8 mmol/L (3.6-5.0); SODIUM 138.3 mmol/L (137-145)
[2016-05-07] MEDS: HEPARIN SOD (PORCINE) 5,000 UNIT/ML 1 ML SYRINGE SUBCUT SCH ×3 (06:07→22:14)
[2016-05-07] MEDS: ISOSORB DINIT/HYDRALAZINE HCL 20-37.5 MG TABLET PO SCH ×3 (06:07→22:14)
[2016-05-07] MEDS: MULTIVITAMIN TABLET PO SCH (10:48)
[2016-05-07] MEDS: TAMSULOSIN HCL 0.4 MG CAP.SR.24H PO SCH (10:49)
[2016-05-07] MEDS: PANTOPRAZOLE SODIUM 40 MG VIAL IV SCH (10:49)
[2016-05-07] MEDS: ASPIRIN 81 MG TABLET, ENT COATED PO SCH (10:49)
[2016-05-07] MEDS: FUROSEMIDE INJ/PF 40 MG/4 ML SDV IV SCH (10:49)
[2016-05-07] MEDS: CLOPIDOGREL BISULFATE 75 MG TABLET PO SCH (10:49)
--- NOTE | 2016-05-07 12:18 | PDOC PROGRESS REPORT ---
Subjective Progress Note for:: 05/07/16 Subjective:: LATASHA BARLOW is a 75 year old male Who presented to the emergency department from home with the assistance of his family after being sick at home for the last 2 weeks. He states it all started with a dry hacking cough and was quickly followed by dyspnea on exertion and then dyspnea at rest. He is also noticed increased swelling of his lower extremities and weight gain of more than 5 pounds during the first week in spite of escalating doses of diuretics. He notes the cough is often paroxysmal and leads to emesis and is also associated with left chest wall pain described as sharp stabbing grabbing tearing type pain only with deep inspiration or cough, alleviated with rest, nonradiating and without other associated symptoms. He reports subjective fevers and chills at home and no sick contacts among his family members. He has a known history of ischemic cardiomyopathy, last echocardiogram was in 2012 and showed an EF of 45-50%, left atrial enlargement, severe pulmonary hypertension, and moderate tricuspid regurgitation. He has known coronary artery disease status post stents 4 or 5 he's not sure. He thinks he had 3 stents placed the first time followed by 2 stents thereafter. He has supplemental O2 available to him at home to use on an as-needed basis. Evaluation in the emergency department is consistent with acute on chronic systolic heart failure with probable bacterial bronchitis and possible bacterial pneumonia. We were asked to admit for further investigation and management. Symptoms have improved with treatment. JVD is resolved, lower extremity edema improved ROS: Total 10 systems are reviewed with the patient pertinent positives and negatives noted above remaining systems are negative. Physical Exam Vital Signs: Temp Pulse Resp BP Pulse Ox 98.0 F 89 19 116/66 99 05/07/16 07:49 05/07/16 07:49 05/07/16 07:49 05/07/16 07:49 05/07/16 07:49 Pulse Oximeter Continuous Start: 05/05/16 17: 58 Freq: RTQ4 Status: Active Document 05/07/16 04:00 [facility] (Rec: 05/07/16 05:17 [facility] [email or web address]) Pulse Oximetry Assessment Oxygen Saturation (92-100) 100 Oxygen Delivery Method Room Air Fraction of Inspired Oxygen (FIO2) 21 Equipment Usage Equipment in Use Continuous SpO2 Machine # 9 Intake & Output 05/06/16 05/07/1605/08/17 06:59 06:59 06:59 Intake Total 562 1897 Output Total 575 1200 Balance -13 697 Weight 90.4 kg 89.1 kg General appearance: PRESENT: no acute distress, cooperative Eye exam: PRESENT: EOMI, PERRLA. ABSENT: conjunctival injection Neck exam: PRESENT: other - Supple. ABSENT: JVD Respiratory exam: PRESENT: clear to auscultation gabriel, unlabored. ABSENT: accessory muscle use Cardiovascular exam: PRESENT: RRR. ABSENT: systolic murmur GI/Abdominal exam: PRESENT: normal bowel sounds, soft. ABSENT: tenderness Extremities exam: PRESENT: +2 edema. ABSENT: calf tenderness Neurological exam: PRESENT: alert, awake, oriented to person, oriented to place , oriented to situation Skin exam: PRESENT: cyanosis - As before Results Laboratory Results: 05/07/16 04:13 05/07/16 04:13 05/07/16 05/07/16 04:13 04:13 WBC 13.4 H RBC 3.23 L Hgb 9.2 L Hct 27.2 L MCV 84 MCH 28.5 MCHC 33.9 RDW 15.8 H Plt Count 286 Seg Neutrophils % 76.9 Lymphocytes % 13.6 Monocytes % 7.3 Eosinophils % 1.5 Basophils % 0.7 Absolute Neutrophils 10.3 H Absolute Lymphocytes 1.8 Absolute Monocytes 1.0 Absolute Eosinophils 0.2 Absolute Basophils 0.1 Sodium 138.3 Potassium 4.8 Chloride 104 Carbon Dioxide 23 Anion Gap 11 BUN 66 H Creatinine 3.40 H Est GFR ( Amer) 22 L Est GFR (Non-Af Amer) 18 L Glucose 132 H Calcium 9.4 05/05/16 05/05/16 05/06/16 18:58 18:58 00:28 Creatine Kinase 1377 H 1204 H CK-MB (CK-2) 11.70 H Troponin I 0.249 NT-Pro-B Natriuret Pep 05/06/16 05/06/16 05/06/16 00:28 05:32 05:32 Creatine Kinase 997 H CK-MB (CK-2) 8.95 H 7.07 H Troponin I 0.206 0.211 NT-Pro-B Natriuret Pep 20500 H 05/07/16 04:13 Creatine Kinase CK-MB (CK-2) Troponin I NT-Pro-B Natriuret Pep 24937 H Impressions: Chest X-Ray 05/05/16 11:37 IMPRESSION: Mild cardiomegaly and mild vascular congestion. Echo report: Shows mildly depressed LV function with an EF of 40%, pseudo- normal left ventricular relaxation consistent with moderate diastolic dysfunction, moderate global hypokinesia of the left ventricle, RV function mildly reduced and dilated, biatrial enlargement, mild TR, moderate to severe pulmonary hypertension Assessment & Plan - Diagnosis (1) Acute on chronic systolic heart failure Is this a current diagnosis for this admission?: YesPlan: Improved. Change Lasix to 40 mg oral twice a day continuing to titrate to effect paying close attention to his renal function and volume status. Will hold beta batsheva use and nitroglycerin use for now pending further evaluation. Hold LEELEE inhibitor and ARB use due to chronic kidney disease stage IV. (2) Acute bacterial bronchitis Is this a current diagnosis for this admission?: YesPlan: Improved. Continue Rocephin. Supplemental O2 as needed. Nebulizers as needed. (3) Chest pain, pleuritic Is this a current diagnosis for this admission?: YesPlan: Resolved. Chest wall pain is reproducible both on exam and with inspiration I do not think this is cardiac in nature, likely pleurisy. I believe his elevated troponin is due to his chronic kidney disease and the acuity of his illness. Add mild cough suppressant (4) COPD (chronic obstructive pulmonary disease) Qualifiers: COPD type: emphysema Emphysema type: unspecified Qualified Code( s): J43.9 - Emphysema, unspecified Is this a current diagnosis for this admission?: YesPlan: As above, still no evidence for an acute exacerbation, no bronchospasm evident on exam (5) CAD (coronary artery disease), [place] coronary artery Qualifiers: [place] vs. transplanted heart: [place] heart Associated angina: without angina Qualified Code(s): I25.10 - Atherosclerotic heart disease of [place] coronary artery without angina pectoris Is this a current diagnosis for this admission?: YesPlan: cardiac enzymes have trended flat and BNP unchanged. Review the old record indicates his cardiac enzymes have been abnormal for years often to the same level; as his chest pain is reproducible on exam no further intervention is indicated at this time. Sees Dr. Knight cardiology at [place] and I have requested old records, states he's had a stress test in the last year, and heart catheter in the last 2 years. (6) Cardiac dysrhythmia, unspecified Qualifiers: Arrhythmia type: unspecified cardiac arrhythmia Qualified Code(s): I49.9 - Cardiac arrhythmia, unspecified Is this a current diagnosis for this admission?: YesPlan: has ICD in place; no evidence for cardiac dysrhythmia noted on telemetry monitoring overnight (7) Chronic renal failure, stage 4 (severe) Is this a current diagnosis for this admission?: YesPlan: Stable. Repeat Chem-7 in the morning. Careful attention will need to be paid to his volume status and renal function; consult nephrology for decline in function. (8) Diabetes Qualifiers: Diabetes mellitus type: type 2 Diabetes mellitus complication status: with unspecified complications Diabetes mellitus snf insulin use: with termite control service representative use Qualified Code(s): E11.8 - Type 2 diabetes mellitus with unspecified complications; Z79.4 - [facility] (current) use of insulin Is this a current diagnosis for this admission?: YesPlan: Poorly controlled hemoglobin A1c greater than 11; increase basal and continue to Cover with bolus insulin (9) Weakness generalized Is this a current diagnosis for this admission?: YesPlan: Start physical therapy, consult case management for rehabilitation options. Patient's is disabled at home and unable to care for him alone. (10) Bacteremia Is this a current diagnosis for this admission?: YesPlan: Possibly contaminant, we'll repeat blood cultures to confirm one where the other. - Time Time Spent with patient: 35 or more minutes
[2016-05-07] MEDS ORDERED: DIGOXIN 0.125 MG TABLET PO ONE (13:00)
[2016-05-07] MEDS: FUROSEMIDE 40 MG TABLET PO SCH (17:42)
[2016-05-07] MEDS: INSULIN GLARGINE,HUM.REC.ANLOG 300 UNIT/3 ML INSULN.PEN SUBCUT SCH (22:14)
[2016-05-07] MEDS: INSULIN LISPRO 100 UNIT/ML 3 ML VIAL SUBCUT PRN (22:14)
[2016-05-08] MEDS: CEFTRIAXONE 1 GM/D5W RTU 1 GM/50 ML RTUPB IV SCH (00:14)
[2016-05-08 04:57] LABS: ANION GAP 10 (5-19); BLOOD UREA NITROGEN 63 mg/dL (7-20); CALCIUM 9.6 mg/dL (8.4-10.2); CARBON DIOXIDE 25 mmol/L (22-30); CHLORIDE 106 mmol/L (98-107); GLUCOSE 46 mg/dL (75-110); MAGNESIUM 2.2 mg/dL (1.6-2.3); PHOSPHORUS 4.2 mg/dL (2.5-4.5); POTASSIUM 4.8 mmol/L (3.6-5.0)
[2016-05-08 05:12] LABS: TROPONIN I 0.164 ng/mL
[2016-05-08] MEDS: HEPARIN SOD (PORCINE) 5,000 UNIT/ML 1 ML SYRINGE SUBCUT SCH ×2 (06:25→13:36)
[2016-05-08] MEDS: ISOSORB DINIT/HYDRALAZINE HCL 20-37.5 MG TABLET PO SCH ×2 (06:25→13:35)
[2016-05-08] MEDS ORDERED: LANSOPRAZOLE 30 MG TAB.RAP.DR PO SCH (08:00)
[2016-05-08] MEDS: MULTIVITAMIN TABLET PO SCH (09:05)
[2016-05-08] MEDS: ASPIRIN 81 MG TABLET, ENT COATED PO SCH (09:05)
[2016-05-08] MEDS: CLOPIDOGREL BISULFATE 75 MG TABLET PO SCH (09:05)
[2016-05-08] MEDS: FUROSEMIDE 40 MG TABLET PO SCH (09:05)
[2016-05-08] MEDS: TAMSULOSIN HCL 0.4 MG CAP.SR.24H PO SCH (09:05)
[2016-05-08] MEDS ORDERED: DIGOXIN 0.125 MG TABLET PO SCH (10:00)
--- NOTE | 2016-05-08 11:03 | PDOC TRANSFER SUMMARY ---
General - Admit/Disc Date/PCP Admission Date/Primary Care Provider: 05/05/16 17:56 KRISTIN STEPHENS Discharge Date: 05/08/16 - Discharge Diagnosis (1) Acute on chronic systolic heart failure Is this a current diagnosis for this admission?: YesSummary: diuresed well with simply lasix, JVD flat, BLE swelling down to 1+ and respiratory status back to baseline (2) Acute bacterial bronchitis Is this a current diagnosis for this admission?: YesSummary: resolved with Abx; doubt he needs anymore; defer to facility provider to re- evaluate as needed (3) Chest pain, pleuritic Is this a current diagnosis for this admission?: YesSummary: resolved with control of cough; continue suppressant prn (4) COPD (chronic obstructive pulmonary disease) Is this a current diagnosis for this admission?: YesSummary: stable; no acute exac (5) CAD (coronary artery disease), [place] coronary artery Is this a current diagnosis for this admission?: YesSummary: chronic elevation of his troponins; echo shows old scar and mild cardiomyopathy ; refer to cardio for outpt f/u and recommendations. (6) Cardiac dysrhythmia, unspecified Is this a current diagnosis for this admission?: Yes (7) Chronic renal failure, stage 4 (severe) Is this a current diagnosis for this admission?: YesSummary: Scr stable in spite of diuresis; will need routine labs to monitor. has seen Dr Mercedes in the past, f/u as instructed by his office (8) Diabetes Is this a current diagnosis for this admission?: YesSummary: BSs labile, adjust insulin regimen accordingly; continue AC/HS monitoring (9) Weakness generalized Is this a current diagnosis for this admission?: YesSummary: improved but good candidate for rehab; bed offer accepted at [place] (10) Bacteremia Is this a current diagnosis for this admission?: YesSummary: he is not septicemic and I suspect this is contaminant; repeat culx's are pending, defer to facility MD for f/u. recommend continuing Vantin until final report known and if clear can stop. - Additional Information Discharge Diet: Diabetic Discharge Activity: Slowly Increase Activity, Supervised Activity Home Medications: Atorvastatin Calcium [Lipitor 80 mg Tablet] 80 mg PO QHS 05/05/16 Insulin Glargine,Hum.rec.anlog [Lantus Solostar] 40 units SQ QHS 05/05/16 Isosorb Dinit/Hydralazine HCl [Bidil 20-37.5 mg Tablet] 1 tab PO Q8 05/05/16 Losartan Potassium [Cozaar 100 mg Tablet] 50 mg PO QAM 05/05/16 Multivitamin [Multivitamins] 1 cap PO DAILY 05/05/16 Tamsulosin HCl [Flomax 0.4 mg Cap.sr] 0.4 mg PO DAILY 05/05/16 Calcitriol [Rocaltrol] 0.25 mcg PO DAILY 05/06/16 Digoxin [Lanoxin 0.125 mg Tablet] 0.125 mg PO DAILY 05/06/16 Gabapentin 100 mg PO QHS 05/06/16 Metoprolol Tartrate 25 mg PO DAILY 05/06/16 Acetaminophen [Tylenol 325 mg Tablet] 650 mg PO Q4HP PRN #0 tablet 05/08/16 Albuterol Sulfate [Ventolin 0.083% Neb 2.5 mg/3 mL Ampul] 2.5 mg NEB RTQ6HP PRN #0 vial.neb 05/08/16 Aspirin [Ecotrin 81 mg EC Tablet] 81 mg PO DAILY #0 tabec 05/08/16 Clopidogrel Bisulfate [Plavix 75 mg Tablet] 75 mg PO DAILY #0 tablet 05/08/16 Furosemide [Lasix 40 mg Tablet] 40 mg PO BID #0 tablet 05/08/16 Hydrocodone Bit/Homatropine [Hycodan 5-1.5 mg Tablet] 1 tab PO Q6HP PRN #0 tablet 05/08/16 Hydrocodone/Acetaminophen [[place] 5-325 mg Tablet] 1 tab PO Q4HP PRN #0 tablet Insulin Lispro [Humalog Insulin (Lispro) 100 unit/mL] 0 - 12 unit SUBCUT ACHSP PRN #0 unit 05/08/16 Lansoprazole [Prevacid 30 mg Odt Tablet] 30 mg PO ACBRKFST #0 tab.laya. History of Present Illness Admission Date/PCP: 05/05/16 17:56 KRISTIN STEPHENS Patient complains of: weakness History of Present Illness: LATASHA BARLOW is a 75 year old male Who presents to the emergency department from home with the assistance of his family after being sick at home for the last 2 weeks. He states it all started with a dry hacking cough and was quickly followed by dyspnea on exertion and then dyspnea at rest. He is also noticed increased swelling of his lower extremities and weight gain of more than 5 pounds during the first week in spite of escalating doses of diuretics. He notes the cough is often paroxysmal and leads to emesis and is also associated with left chest wall pain described as sharp stabbing grabbing tearing type pain only with deep inspiration or cough , alleviated with rest, nonradiating and without other associated symptoms. He reports subjective fevers and chills at home and no sick contacts among his family members. He has a known history of ischemic cardiomyopathy, last echocardiogram was in 2012 and showed an EF of 45-50%, left atrial enlargement, severe pulmonary hypertension, and moderate tricuspid regurgitation. He has known coronary artery disease status post stents 4 or 5 he's not sure. He thinks he had 3 stents placed the first time followed by 2 stents thereafter. He has supplemental O2 available to him at home to use on an as-needed basis. Evaluation in the emergency department is consistent with acute on chronic systolic heart failure with probable bacterial bronchitis and possible bacterial pneumonia. We were asked to admit for further investigation and management. symptoms markedly improved with diuresis and treatment with abx. his initial blood cultures from ED show GPC and GNR but he is not febrile or toxic appearing so I doubt bacteremia; his repeat culx's are still pending at this time. he should continue abx until final results are known. he was placed on rocephin/zmax for his bronchitis so will continue vantin for another 7d or until final cultures available. cardiac enzymes trended flat and his chest pain is easily reproducible on exam, echo shows global hypokinesia and mildly depressed EF at 40%. no ecg changes, further investigation indicated at this time. 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 pt is stable for transfer to rehab to continue PT. Hospital Course Hospital Course: as above Physical Exam Vital Signs: Temp Pulse Resp BP Pulse Ox 98.0 F 88 16 139/61 H 100 05/08/16 07:59 05/08/16 08:00 05/08/16 08:00 05/08/16 07:59 05/08/16 08:00 Pulse Oximeter Continuous Start: 05/05/16 17: 58 Freq: RTQ4 Status: Active Document 05/08/16 08:00 LDA (Rec: 05/08/16 10:23 LDA [email or web address]) Pulse Oximetry Assessment Oxygen Saturation (92-100) 100 Oxygen Flow Rate (L/min) 2 Oxygen Delivery Method Nasal Cannula Equipment Usage Equipment in Use Continuous SpO2 Machine # [id number] Intake & Output 05/07/16 05/08/16 05/09/16 06:59 06:59 06:59 Intake Total 1897 1239 Output Total 1200 725 Balance 697 514 Weight 89.1 kg 89.8 kg Head exam: PRESENT: atraumatic, normocephalic Eye exam: PRESENT: EOMI. ABSENT: conjunctival injection Mouth exam: PRESENT: moist, neck supple Respiratory exam: PRESENT: clear to auscultation gabriel. ABSENT: accessory muscle use Extremities exam: PRESENT: +1 edema Results Laboratory Results: 05/07/16 04:13 05/08/16 03:43 05/08/16 03:43 Sodium 141.0 Potassium 4.8 Chloride 106 Carbon Dioxide 25 Anion Gap 10 BUN 63 H Creatinine 3.20 H Est GFR ( Amer) 23 L Est GFR (Non-Af Amer) 19 L Glucose 46 L Calcium 9.6 Phosphorus 4.2 Magnesium 2.2 05/05/16 05/05/16 05/06/16 18:58 18:58 00:28 Creatine Kinase 1377 H 1204 H CK-MB (CK-2) 11.70 H Troponin I 0.249 NT-Pro-B Natriuret Pep 05/06/16 05/06/16 05/06/16 00:28 05:32 05:32 Creatine Kinase 997 H CK-MB (CK-2) 8.95 H 7.07 H Troponin I 0.206 0.211 NT-Pro-B Natriuret Pep 17983 H 05/07/16 05/08/16 04:13 03:43 Creatine Kinase CK-MB (CK-2) Troponin I 0.164 NT-Pro-B Natriuret Pep 38193 H 87311 H Impressions: Chest X-Ray 05/05/16 11:37 IMPRESSION: Mild cardiomegaly and mild vascular congestion. Transfer Plan - Disposition Transfer Plan: to [place] for rehab - Time Spent with Patient Time spent with patient: Greater than 30 Minutes Qualifiers PATEINT BEING DISCHARGED WITH ANY OF THE FOLLOWING DIAGNOSIS?: Heart Failure VTE patient discharged on overlapping Therapy?: No Reason(s) for not prescribing Overlap Therapy:: Not indicated HF Pt being discharged on ACEI for LVEF less than 40%?: No Reason(s) for not prescribing ACEI:: Not indicated HF Pt being discharged on ARBS for LVEF less than 40%?: Yes HF Pt discharged on evidence-based Beta Jayjay?: Yes Plan Discharge Plan: to rehab Time Spent: Greater than 30 Minutes
[2016-05-08 16:35] VITALS: BP 141/70
== END 2016-05-08 17:00 | DRG 291 ==
LOC: ER 11:36 → EH 16:53 → UNDOADMIN 16:53 → EH 17:56 → 3N 21:06
PROVIDERS: ADMIT Family Medicine; ATTEND Family Medicine
DX: I13.0 Hypertensive heart and chronic kidney disease with heart failure and stage 1 through stage 4 chronic kidney disease, or unspecified chronic kidney disease (principal); I50.23 Acute on chronic systolic (congestive) heart failure; J15.9 Unspecified bacterial pneumonia; N18.4 Chronic kidney disease, stage 4 (severe); M62.82 Rhabdomyolysis; E78.5 Hyperlipidemia, unspecified; K21.9 Gastro-esophageal reflux disease without esophagitis; N40.0 Benign prostatic hyperplasia without lower urinary tract symptoms; E11.22 Type 2 diabetes mellitus with diabetic chronic kidney disease; E11.65 Type 2 diabetes mellitus with hyperglycemia; I25.5 Ischemic cardiomyopathy; I27.2 Other secondary pulmonary hypertension; I07.1 Rheumatic tricuspid insufficiency; D64.9 Anemia, unspecified; J20.9 Acute bronchitis, unspecified; J43.9 Emphysema, unspecified; I49.9 Cardiac arrhythmia, unspecified; I25.10 Atherosclerotic heart disease of native coronary artery without angina pectoris; I25.2 Old myocardial infarction; Z74.2 Need for assistance at home and no other household member able to render care; Z88.5 Allergy status to narcotic agent; Z88.0 Allergy status to penicillin; Z79.82 Long term (current) use of aspirin; Z79.01 Long term (current) use of anticoagulants; Z79.4 Long term (current) use of insulin; Z87.891 Personal history of nicotine dependence; Z95.0 Presence of cardiac pacemaker; Z95.5 Presence of coronary angioplasty implant and graft
CPT/HCPCS: 36415; 71010; 80048; 80053; 81001; 82550; 82553; 82962; 83036; 83735; 83880; 84100; 84484; 85025; 87040; 87077; 87186; 87804; 93005; 93010; 93306; 94640; 94762; 96374; 99291; G8978-GP; G8979-GP; J0456; J0696; J1644; J1815; J1940; J3490; J7060; J7620; S0164

== ENCOUNTER 2016-10-30 23:33 | Emergency (ER) | payer MEDICARE, OTHER ==
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
--- NOTE | 2016-10-31 01:34 | RADIOLOGY REPORT (SQ) ---
EXAM DESCRIPTION: CHEST PA/LAT COMPLETED DATE/TIME: 10/31/2016 12:45 am REASON FOR STUDY: trauma COMPARISON: 05/05/2016. . EXAM PARAMETERS: NUMBER OF VIEWS: two views TECHNIQUE: Digital Frontal and Lateral radiographic views of the chest acquired. RADIATION DOSE: NA LIMITATIONS: none FINDINGS: LUNGS AND PLEURA: Mild mixed interstitial and airspace opacity of both lung velasquez. MEDIASTINUM AND HILAR STRUCTURES: No masses or contour abnormalities. HEART AND VASCULAR STRUCTURES: Borderline cardiac silhouette size. Atherosclerosis. BONES: No acute findings. HARDWARE: Left cardiac stimulation device and leads. OTHER: No other significant finding. IMPRESSION: Mild chronic interstitial markings. [id number] cardiac enlargement. TECHNICAL DOCUMENTATION: JOB ID: [id number] [employer]- All Rights Reserved
--- NOTE | 2016-10-31 01:36 | RADIOLOGY REPORT (SQ) ---
EXAM DESCRIPTION: KNEE LEFT 4 VIEW COMPLETED DATE/TIME: 10/31/2016 12:45 am REASON FOR STUDY: trauma COMPARISON: None. NUMBER OF VIEWS: Four views. TECHNIQUE: AP, lateral, and both oblique radiographic images acquired of the left knee. LIMITATIONS: None. FINDINGS: MINERALIZATION: Normal. BONES: No acute fracture or dislocation. No worrisome bone lesions. Partially imaged intramedullary naeem of the left femur. JOINT: No effusion. SOFT TISSUES: No soft tissue swelling. No radio-opaque foreign body. OTHER: Atherosclerosis. IMPRESSION: No acute findings. TECHNICAL DOCUMENTATION: JOB ID: [id number] [employer]- All Rights Reserved
[2016-10-31 02:04] VITALS: BP 169/88
== END 2016-10-31 02:10 | disposition home or self-care (01) ==
LOC: ER 23:33
DX: S80.212A Abrasion, left knee, initial encounter (principal); V43.52XA Car driver injured in collision with other type car in traffic accident, initial encounter; I50.9 Heart failure, unspecified; I25.10 Atherosclerotic heart disease of native coronary artery without angina pectoris; E78.00 Pure hypercholesterolemia, unspecified; I11.0 Hypertensive heart disease with heart failure; J44.9 Chronic obstructive pulmonary disease, unspecified; Z99.81 Dependence on supplemental oxygen; E11.9 Type 2 diabetes mellitus without complications; Z88.0 Allergy status to penicillin; Z88.6 Allergy status to analgesic agent
CPT/HCPCS: 71020; 99284

== ENCOUNTER 2016-12-29 14:11 | Inpatient (IN) | payer MEDICARE, OTHER ==
[~2016-12-29 14:11] MED LIST: BUMETANIDE INJ/PF 1 MG/4 ML SDV IV SCH
[2016-12-29 14:55] LABS: ABSOLUTE EOSINOPHILS # (AUTO) 0.1 10^3/uL (0.0-0.6); ABSOLUTE LYMPHOCYTES (AUTO) 0.9 10^3/uL (0.5-4.7); ABSOLUTE NEUT (AUTO) 4.8 10^3/uL (1.7-8.2); BASOPHILS % (AUTO) 0.6 % (0-2); EOSINOPHILS % (AUTO) 2.2 % (0-6); HEMATOCRIT 28.1 % (37.9-51.0); HEMOGLOBIN 9.6 g/dL (13.5-17.0); HGB HCT DIFFERENCE 0.7; LYMPHOCYTES % (AUTO) 12.6 % (13-45); MEAN CORPUSCULAR HEMOGLOBIN 29.8 pg (27.0-33.4); MEAN CORPUSCULAR HGB CONC 34.2 g/dL (32.0-36.0); MEAN CORPUSCULAR VOLUME 87 fl (80-97); MONOCYTES % (AUTO) 15.1 % (3-13); RED BLOOD COUNT 3.23 10^6/uL (4.35-5.55); RED CELL DISTRIBUTION WIDTH 14.5 % (11.5-14.0); SEGMENTED NEUTROPHILS % (AUTO) 69.5 % (42-78); WHITE BLOOD COUNT 6.9 10^3/uL (4.0-10.5)
[2016-12-29 15:07] LABS: ALANINE AMINOTRANSFERASE 97 U/L (21-72); ALBUMIN 3.6 g/dL (3.5-5.0); ALKALINE PHOSPHATASE 133 U/L (38-126); ANION GAP 15 (5-19); ASPARTATE AMINO TRANSFERASE 84 U/L (17-59); BILIRUBIN,DIRECT 0.5 mg/dL (0.0-0.4); BILIRUBIN,TOTAL 0.7 mg/dL (0.2-1.3); BLOOD UREA NITROGEN 90 mg/dL (7-20); CALCIUM 9.6 mg/dL (8.4-10.2); CARBON DIOXIDE 22 mmol/L (22-30); CHLORIDE 102 mmol/L (98-107); CREATININE RESULT 3.68 mg/dL (0.52-1.25); GLUCOSE 196 mg/dL (75-110); LIPASE 76.3 U/L (23-300); MAGNESIUM 1.9 mg/dL (1.6-2.3); POTASSIUM 4.1 mmol/L (3.6-5.0); SODIUM 139.2 mmol/L (137-145); TOTAL PROTEIN 6.3 g/dL (6.3-8.2)
[2016-12-29 15:16] LABS: PROTHROMBIN TIME 14.6 SEC (11.4-15.4)
[2016-12-29 15:17] LABS: PARTIAL THROMBOPLASTIN TIME 32.8 SEC (23.5-35.8)
--- NOTE | 2016-12-29 15:49 | RADIOLOGY REPORT (SQ) ---
EXAM DESCRIPTION: CHEST PA/LAT COMPLETED DATE/TIME: 12/29/2016 3:25 pm REASON FOR STUDY: sob COMPARISON: Two-view chest 10/31/2016 AP chest 05/05/2016, 04/06/2013 EXAM PARAMETERS: NUMBER OF VIEWS: two views TECHNIQUE: Digital Frontal and Lateral radiographic views of the chest acquired. RADIATION DOSE: NA LIMITATIONS: none FINDINGS: LUNGS AND PLEURA: Pulmonary vascular congestion is present with few Gill lines. No pleu ral effusion, pneumothorax, or dense lung parenchymal consolidation. MEDIASTINUM AND HILAR STRUCTURES: No masses or contour abnormalities. HEART AND VASCULAR STRUCTURES: Stable marked cardiomegaly BONES: No acute findings. HARDWARE: Left-sided dual lead pacemaker OTHER: No other significant finding. IMPRESSION: Pulmonary vascular congestion with mild interstitial edema. Stable cardiomegaly. Unchanged left-sided dual lead pacemaker TECHNICAL DOCUMENTATION: JOB ID: [id number] [employer]- All Rights Reserved
[2016-12-29] MEDS ORDERED: BUMETANIDE INJ/PF 1 MG/4 ML SDV IV ONE (16:13)
[2016-12-29] MEDS ORDERED: ACETAMINOPHEN 325 MG TABLET ONE (16:54)
--- NOTE | 2016-12-29 17:22 | ER Document Report ---
ED General - General Chief Complaint: Abnormal Lab Results Stated Complaint: ABNORMAL LABS Time Seen by Provider: 12/29/16 14:20 TRAVEL OUTSIDE OF THE [place] IN LAST 30 DAYS: No - HPI Patient complains to provider of: Shortness of breath Notes: Patient presents today for evaluation shortness of breath now normal lab values. Patient had outpatient labs done on the first showing elevated BNP patient states increased shortness of breath with exertion difficulty sleeping swelling weight gain patient does have a history of CHF. Patient was directed by his primary care physician to go to the ER for further evaluation. Upon evaluation patient SPO2 in the 90s. Patient placed on nasal cannula increased to 100%. Patient denies any fevers chills denies any productive cough. Denies any recent travel. States compliance with medication. Patient does have a history of renal failure as well currently is being evaluated by local medical billing and coding specialist Dr. Reymundo Mercedes according to the patient. PCP is katie. No obvious distress upon my evaluation - Related Data Allergies/Adverse Reactions: morphine [Morphine] Allergy (Severe, Verified 12/29/16 14:23) Hallucinations, Agitation Penicillins Allergy (Severe, Verified 12/29/16 14:23) Hallucinations, Agitation Home Medications: Current Home Medications Aspirin [Aspirin EC] 81 mg PO DAILY 12/29/16 [History] Atorvastatin Calcium [Lipitor 80 mg Tablet] 80 mg PO QHS 12/29/16 [History] Clopidogrel Bisulfate [Plavix 75 mg Tablet] 75 mg PO DAILY 12/29/16 [History] Digoxin [Digitek] 125 mcg PO DAILY@1300 12/29/16 [History] Ergocalciferol (Vitamin D2) [Vitamin D2] 50,000 units PO MO@1000 12/29/16 [ History] Furosemide [Lasix 20 mg Tablet] 20 mg PO QPM 12/29/16 [History] Furosemide [Lasix 20 mg Tablet] 40 mg PO QAM 12/29/16 [History] Gabapentin [Neurontin 100 mg Capsule] 100 mg PO QHS 12/29/16 [History] Insulin Glargine,Hum.rec.anlog [Lantus Solostar] 40 units SQ QHS 12/29/16 [ History] Insulin Lispro [Humalog] See Protocol SQ ACHSP PRN 12/29/16 [History] Isosorb Dinit/Hydralazine HCl [Bidil 20-37.5 mg Tablet] 1 tab PO Q12 12/29/16 [ History] Losartan Potassium [Cozaar 50 mg Tablet] 50 mg PO DAILY 12/29/16 [History] Metoprolol Succinate [Toprol Xl 50 mg Tab.sr] 50 mg PO Q12 12/29/16 [History] Tamsulosin HCl [Flomax 0.4 mg Cap.sr] 0.4 mg PO PCBRKFST 12/29/16 [History] Warfarin Sodium [Coumadin 5 mg Tablet] 5 mg PO DAILY 12/29/16 [History] Past Medical History - Social History Smoking Status: Unknown if Ever Smoked Family History: Reviewed & Not Pertinent - Past Medical History Cardiac Medical History: Reports: Hx Congestive Heart Failure, Hx Coronary Artery Disease, Hx Heart Attack, Hx Hypercholesterolemia, Hx Hypertension, Hx Peripheral Vascular Disease Pulmonary Medical History: Reports: Hx COPD Denies: Hx Tuberculosis Neurological Medical History: Denies: Hx Seizures Endocrine Medical History: Reports: Hx Diabetes Mellitus Type 2 Renal/ Medical History: Reports: Hx Benign Prostatic Hyperplasia, Hx Kidney Stones GI Medical History: Reports: Hx Gastroesophageal Reflux Disease, Hx Ulcer Musculoskeltal Medical History: Reports Hx Arthritis Psychiatric Medical History: Denies: Hx Depression Past Surgical History: Reports: Hx Cardiac Catheterization, Hx Cardiac Surgery - Defibrilator, Hx Coronary Stent, Hx Pacemaker - PPM removed and replaced by ICD, Other - TURP - Immunizations Hx Diphtheria, Pertussis, Tetanus Vaccination: Yes Hx Pneumococcal Vaccination: 04/26/11 Review of Systems - Review of Systems Constitutional: No symptoms reported EENT: No symptoms reported Cardiovascular: No symptoms reported Respiratory: Short of breath, Other - Dyspnea on exertion weight gain Gastrointestinal: No symptoms reported Genitourinary: No symptoms reported Male Genitourinary: No symptoms reported Musculoskeletal: No symptoms reported Skin: No symptoms reported Hematologic/Lymphatic: No symptoms reported Neurological/Psychological: No symptoms reported Physical Exam - Vital signs Vitals: Resp Pulse Ox 21 H 98 12/29/16 14:28 12/29/16 14:28 Interpretation: Normal - General General appearance: Appears well, Alert - HEENT Head: Normocephalic, Atraumatic Eyes: Normal Pupils: PERRL - Respiratory Respiratory status: No respiratory distress Chest status: Nontender Breath sounds: Rales Chest palpation: Normal - Cardiovascular Rhythm: Regular Heart sounds: Normal auscultation Murmur: No - Abdominal Inspection: Normal Distension: No distension Bowel sounds: Normal Tenderness: Nontender Organomegaly: No organomegaly - Back Back: Normal, Nontender - Extremities General upper extremity: Normal inspection, Nontender, Normal color, Normal ROM , Normal temperature General lower extremity: Nontender, Edema, Normal color, Normal ROM, Normal temperature, Normal weight bearing. No: Normal inspection - Patient with bilateral open wounds to anterior rose no signs of septic process or infection. Review of past medical history shows that this may be chronic., Vishnu's sign - Neurological Neuro grossly intact: Yes Cognition: Normal Orientation: AAOx4 [place] Coma Scale Eye Opening: Spontaneous [place] Coma Scale Verbal: Oriented [place] Coma Scale Motor: Obeys Commands [place] Coma Scale Total: 15 Speech: Normal Motor strength normal: LUE, RUE, LLE, RLE Sensory: Normal - Psychological Associated symptoms: Normal affect, Normal mood - Skin Skin Temperature: Warm Skin Moisture: Dry Skin Color: Normal Course - Re-evaluation Re-evalutation: 12/29/16 22:12 Patient with acute on chronic renal failure with CHF. Discussed with hospitalist will admit the patient also discussed with patient's medical billing and coding specialist will consult on patient. Patient admitted for further evaluation. - Vital Signs Vital signs: Temp Pulse Resp BP Pulse Ox 97.9 F 83 16 135/72 H 97 12/29/16 19:38 12/29/16 21:22 12/29/16 19:38 12/29/16 19:40 12/29/16 20:00 - Laboratory Result Diagrams: 12/29/16 14:41 12/29/16 14:41 Laboratory results interpreted by me: 12/29/16 12/29/16 12/29/16 14:41 14:41 14:41 RBC 3.23 L Hgb 9.6 L Hct 28.1 L RDW 14.5 H Plt Count 143 L Lymphocytes % 12.6 L Monocytes % 15.1 H BUN 90 H Creatinine 3.68 H Est GFR ( Amer) 20 L Est GFR (Non-Af Amer) 16 L Glucose 196 H Direct Bilirubin 0.5 H AST 84 H ALT 97 H Alkaline Phosphatase 133 H NT-Pro-B Natriuret Pep 82303 H Digoxin 12/29/16 14:41 RBC Hgb Hct RDW Plt Count Lymphocytes % Monocytes % BUN Creatinine Est GFR ( Amer) Est GFR (Non-Af Amer) Glucose Direct Bilirubin AST ALT Alkaline Phosphatase NT-Pro-B Natriuret Pep Digoxin 0.56 L Discharge - Discharge Clinical Impression: chronic leg wounds Congestive heart failure Qualifiers: Congestive heart failure type: systolic Congestive heart failure chronicity: acute Qualified Code(s): I50.21 - Acute systolic (congestive) heart failure Renal failure Qualifiers: Renal failure chronicity: acute Acute renal failure type: unspecified Qualified Code(s): N17.9 - Acute kidney failure, unspecified Condition: Good Disposition: ADMITTED INPATIENT Admitting Provider: Hospitalist Unit Admitted: [facility]
[2016-12-29] MEDS ORDERED: ACETAMINOPHEN 325 MG TABLET PO PRN (17:47)
[2016-12-29] MEDS ORDERED: ONDANSETRON HCL INJ/PF 4 MG/2 ML SDV IV PRN (17:47)
[2016-12-29] MEDS ORDERED: DEXTROSE 50%-WATER 25 GM/50 ML DISP.SYRIN IV PRN ×2 (17:54)
[2016-12-29] MEDS ORDERED: DEXTROSE 40% GEL 15 GM TUBE PO PRN ×2 (17:54)
[2016-12-29] MEDS ORDERED: GLUCAGON,HUMAN RECOMB 1 MG INJ IM PRN (17:54)
[2016-12-29] MEDS ORDERED: ALBUTEROL SULFATE 0.083% NEB 2.5 MG/3 ML AMPUL NEB PRN (17:57)
--- NOTE | 2016-12-29 18:20 | PDOC H&P ---
History of Present Illness Admission Date/PCP: 12/29/16 17:43 KRISTIN STEPHENS NP Patient complains of: Shortness of breath History of Present Illness: LATASHA BARLOW is a 76 year old male with history of, chronic kidney disease stage IV COPD, ischemic cardiomyopathy, pulmonary hypertension, and valvular heart disease presents to the hospital with shortness of breath of 2 days' duration. There is associated 3 pillow orthopnea and paroxysmal nocturnal dyspnea. Patient also noted increasing swelling on both lower extremities. He had a chest pain yesterday but it is precordial. He had episodes of nausea but no vomiting associated. There is no palpitation. Patient somehow felt lightheaded earlier this morning. No chills or fever, sinus congestion, sore throat, nor pleurisy. The patient went to the emergency room for evaluation. Chest x-ray revealed pulmonary vascular congestion. Creatinine of 3.68 with increasing BUN of 90. The patient was given oxygen and diuretics and was referred for admission. Past Medical History Past Medical History: Medication reconciliation pending verification from the patient's pharmacist. Cardiac Medical History: Reports: Congestive Heart Failure, Coronary Artery Disease, Myocardial Infarction, Hyperlipidema, Hypertension, Peripheral Vascular Disease Pulmonary Medical History: Reports: Chronic Obstructive Pulmonary Disease (COPD) Denies: Tuberculosis Neurological Medical History: Denies: Seizures Endocrine Medical History: Reports: Diabetes Mellitus Type 2 GI Medical History: Reports: Gastroesophageal Reflux Disease Musculoskeltal Medical History: Reports: Arthritis Psychiatric Medical History: Denies: Depression Hematology: Reports: Anemia Past Surgical History Past Surgical History: Reports: Cardiac Catheterization, Coronary Stent, Pacemaker - PPM removed and replaced by ICD, Other - TURP Social History Information Source: Patient Smoking Status: Former Smoker Frequency of Alcohol Use: None Hx Recreational Drug Use: No Drugs: None Hx Prescription Drug Abuse: No - Advance Directive Resuscitation Status: Full Code Family History Family History: DM, Hypertension Parental Family History Reviewed: Yes Children Family History Reviewed: Yes Sibling(s) Family History Reviewed.: Yes Medication/Allergy Home Medications: Atorvastatin Calcium [Lipitor 80 mg Tablet] 80 mg PO QHS 05/05/16 Insulin Glargine,Hum.rec.anlog [Lantus Solostar] 40 units SQ QHS 05/05/16 Isosorb Dinit/Hydralazine HCl [Bidil 20-37.5 mg Tablet] 1 tab PO Q8 05/05/16 Losartan Potassium [Cozaar 100 mg Tablet] 50 mg PO QAM 05/05/16 Multivitamin [Multivitamins] 1 cap PO DAILY 05/05/16 Tamsulosin HCl [Flomax 0.4 mg Cap.sr] 0.4 mg PO DAILY 05/05/16 Calcitriol [Rocaltrol] 0.25 mcg PO DAILY 05/06/16 Digoxin [Lanoxin 0.125 mg Tablet] 0.125 mg PO DAILY 05/06/16 Gabapentin 100 mg PO QHS 05/06/16 Metoprolol Tartrate 25 mg PO DAILY 05/06/16 Acetaminophen [Tylenol 325 mg Tablet] 650 mg PO Q4HP PRN #0 tablet 05/08/16 Albuterol Sulfate [Ventolin 0.083% Neb 2.5 mg/3 mL Ampul] 2.5 mg NEB RTQ6HP PRN #0 vial.neb 05/08/16 Aspirin [Ecotrin 81 mg EC Tablet] 81 mg PO DAILY #0 tabec 05/08/16 Cefpodoxime Proxetil [Vantin 100 mg Tablet] 1 tab PO Q12 #14 tab 05/08/16 Clopidogrel Bisulfate [Plavix 75 mg Tablet] 75 mg PO DAILY #0 tablet 05/08/16 Furosemide [Lasix 40 mg Tablet] 40 mg PO BID #0 tablet 05/08/16 Hydrocodone Bit/Homatropine [Hycodan 5-1.5 mg Tablet] 1 tab PO Q6HP PRN #0 tablet 05/08/16 Hydrocodone/Acetaminophen [[place] 5-325 mg Tablet] 1 tab PO Q4HP PRN #0 tablet Insulin Lispro [Humalog Insulin (Lispro) 100 unit/mL] 0 - 12 unit SUBCUT ACHSP PRN #0 unit 05/08/16 Lansoprazole [Prevacid 30 mg Odt Tablet] 30 mg PO ACBRKFST #0 tab.laya. Allergies/Adverse Reactions: morphine [Morphine] Allergy (Severe, Verified 12/29/16 14:23) Hallucinations, Agitation Penicillins Allergy (Severe, Verified 12/29/16 14:23) Hallucinations, Agitation Review of Systems Constitutional: PRESENT: weakness - Generalized. ABSENT: chills, fever(s), headache(s), night sweats, weight gain, weight loss Eyes: ABSENT: visual disturbances Ears: ABSENT: hearing changes Nose, Mouth, and Throat: ABSENT: headache(s), mouth pain, sore throat Cardiovascular: PRESENT: chest pain, dyspnea on exertion - Chronic worse for the past 2 days, edema - Bilateral lower extremity, orthropnea, palpitations Respiratory: PRESENT: cough, dyspnea, sputum - Yellowish. ABSENT: hemoptysis Gastrointestinal: ABSENT: abdominal pain, constipation, diarrhea, hematemesis, hematochezia, melena, nausea, vomiting Genitourinary: ABSENT: difficulty urinating, dysuria, hematuria Musculoskeletal: ABSENT: joint swelling Integumentary: PRESENT: wounds - Both lower extremity due to blister formation. ABSENT: pruritus, rash Neurological: ABSENT: abnormal gait, abnormal speech, confusion, dizziness, focal weakness, syncope Psychiatric: ABSENT: anxiety, depression, homidical ideation, suicidal ideation Endocrine: ABSENT: cold intolerance, heat intolerance, polydipsia, polyuria Hematologic/Lymphatic: ABSENT: easy bleeding, easy bruising Physical Exam Vital Signs: Temp Pulse Resp BP Pulse Ox 97.4 F 82 19 147/95 H 96 12/29/16 14:29 12/29/16 14:29 12/29/16 17:01 12/29/16 17:01 12/29/16 17:01 General appearance: PRESENT: no acute distress, morbidly obese Head exam: PRESENT: atraumatic, normocephalic Eye exam: PRESENT: conjunctiva pale, EOMI, PERRLA. ABSENT: scleral icterus Ear exam: PRESENT: normal external ear exam. ABSENT: drainage Mouth exam: PRESENT: moist, neck supple, tongue midline Neck exam: ABSENT: carotid bruit, JVD, lymphadenopathy, thyromegaly Respiratory exam: PRESENT: clear to auscultation gabriel - Anteriorly, rales - Lower lung velasquez bilateral posteriorly. ABSENT: rhonchi, wheezes Cardiovascular exam: PRESENT: RRR. ABSENT: diastolic murmur, rubs, systolic murmur Pulses: PRESENT: normal dorsalis pedis pul Vascular exam: PRESENT: normal capillary refill GI/Abdominal exam: PRESENT: normal bowel sounds, soft. ABSENT: distended, guarding, mass, organolmegaly, rebound, tenderness Rectal exam: PRESENT: deferred Extremities exam: PRESENT: full ROM, +1 edema. ABSENT: calf tenderness, clubbing Neurological exam: PRESENT: alert, awake, oriented to person, oriented to place , oriented to time, oriented to situation Psychiatric exam: PRESENT: appropriate affect, normal mood. ABSENT: homicidal ideation, suicidal ideation Skin exam: PRESENT: other - Both lower extremity equal in color and cool to touch. Multiple skin tears bilateral leg with no foul-smelling drainage.. ABSENT: cyanosis, rash Results Impressions: Chest X-Ray 12/29/16 14:28 IMPRESSION: Pulmonary vascular congestion with mild interstitial edema. Stable cardiomegaly. Unchanged left-sided dual lead pacemaker Assessment & Plan - Diagnosis (1) Congestive heart failure Qualifiers: Congestive heart failure type: systolic Congestive heart failure chronicity : acute Qualified Code(s): I50.21 - Acute systolic (congestive) heart failure Is this a current diagnosis for this admission?: Yes (2) Anemia of chronic disease Is this a current diagnosis for this admission?: Yes (3) Chronic renal failure, stage 4 (severe) Is this a current diagnosis for this admission?: Yes (4) Thrombocytopenia Is this a current diagnosis for this admission?: Yes (5) CAD (coronary artery disease), [place] coronary artery Qualifiers: [place] vs. transplanted heart: [place] heart Associated angina: angina presence unspecified Qualified Code(s): I25.10 - Atherosclerotic heart disease of [place] coronary artery without angina pectoris Is this a current diagnosis for this admission?: Yes (6) COPD (chronic obstructive pulmonary disease) Qualifiers: COPD type: emphysema Emphysema type: unspecified Qualified Code(s): J43.9 - Emphysema, unspecified Is this a current diagnosis for this admission?: Yes (7) Diabetes Qualifiers: Diabetes mellitus type: type 2 Diabetes mellitus complication status: with unspecified complications Diabetes mellitus terminal gauger insulin use: with terminal gauger use Qualified Code(s): E11.8 - Type 2 diabetes mellitus with unspecified complications Is this a current diagnosis for this admission?: Yes (8) Open leg wound Qualifiers: Encounter type: initial encounter Laterality: unspecified laterality Qualified Code(s): S81.809A - Unspecified open wound, unspecified lower leg, initial encounter Is this a current diagnosis for this admission?: Yes (9) Peripheral vascular disease Is this a current diagnosis for this admission?: Yes (10) GERD (gastroesophageal reflux disease) Qualifiers: Esophagitis presence: without esophagitis Qualified Code(s): K21.9 - Gastro -esophageal reflux disease without esophagitis Is this a current diagnosis for this admission?: Yes (11) Essential hypertension Is this a current diagnosis for this admission?: Yes (12) Hyperlipidemia Qualifiers: Hyperlipidemia type: unspecified Qualified Code(s): E78.5 - Hyperlipidemia , unspecified Is this a current diagnosis for this admission?: Yes (13) Pulmonary hypertension Is this a current diagnosis for this admission?: Yes (14) Ischemic cardiomyopathy Is this a current diagnosis for this admission?: Yes (15) Valvular heart disease Is this a current diagnosis for this admission?: Yes - Time Time Spent: 50 to 70 Minutes - Inpatient Certification Based on my medical assessment, after consideration of the patient's comorbidities, presenting symptoms, or acuity I expect that the services needed warrant INPATIENT care.: Yes I certify that my determination is in accordance with my understanding of Medicare's requirements for reasonable and necessary INPATIENT services [42 CFR 412.3e].: Yes Medical Necessity: Significant Comorbidiites Make Outpatient Treatment Too Risky , Need Close Monitoring Due to Risk of Patient Decompensation, Need For Continuous Telemetry Monitoring, Risk of Diagnosis Which Will Require Inpatient Eval/Care/Monitoring Post Hospital Care: 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 I am going to begin the patient on intravenous Bumex with oral Zaroxolyn. We will consult nephrology for further evaluation and possible dialysis if needed. In terms of the open wounds I will begin him on Silvadene cream. We will obtain cardiac enzymes 3. We will monitor creatinine. Heparin for DVT prophylaxis will be started. I will continue his antiplatelet therapy. Further testing depends on the initial evaluations outlined above. He had a recent echocardiogram on April of this year showing an ejection fraction of 40%.
[2016-12-29] MEDS ORDERED: METOLAZONE 5 MG TABLET PO ONE (19:00)
[2016-12-29 19:12] LABS: THYROID STIMULATING HORMONE 1.34 uIU/mL (0.47-4.68)
--- NOTE | 2016-12-29 19:14 | EKG REPORT ---
SEVERITY:- ABNORMAL ECG - SINUS RHYTHM MULTIPLE VENTRICULAR PREMATURE COMPLEXES FIRST DEGREE AV BLOCK NONSPECIFIC T ABNORMALITIES, INFERIOR LEADS BORDERLINE PROLONGED QT INTERVAL : Confirmed by: Ector Galeana MD 29-Dec-2016 19:13:31
[2016-12-29 19:57] LABS: CREATINE KINASE MB 8.54 ng/mL (<4.55); TROPONIN I 0.114 ng/mL
[2016-12-29] MEDS: SILVER SULFADIAZINE 1% CREAM 25 GM TP SCH (20:40)
[2016-12-29] MEDS ORDERED: CEFPODOXIME PROXETIL PO SCH (22:00)
[2016-12-29] MEDS: GABAPENTIN 100 MG CAPSULE PO SCH (22:11)
[2016-12-29] MEDS: ISOSORB DINIT/HYDRALAZINE HCL 20-37.5 MG TABLET PO SCH (22:12)
[2016-12-29] MEDS: HEPARIN SOD (PORCINE) 5,000 UNIT/ML 1 ML SYRINGE SUBCUT SCH (22:12)
[2016-12-29] MEDS: ATORVASTATIN CALCIUM 80 MG TABLET PO SCH (22:12)
[2016-12-29] MEDS: BUMETANIDE INJ/PF 1 MG/4 ML SDV IV SCH (22:29)
[2016-12-30 01:59] LABS: CREATINE KINASE MB 6.7 ng/mL (<4.55); TROPONIN I 0.103 ng/mL
[2016-12-30] MEDS: HEPARIN SOD (PORCINE) 5,000 UNIT/ML 1 ML SYRINGE SUBCUT SCH ×3 (05:29→22:55)
[2016-12-30] MEDS: INSULIN REG, HUMAN 100 UNIT/ML 3 ML VIAL (PYX) SUBCUT PRN ×5 (05:29→22:55)
[2016-12-30] MEDS: ISOSORB DINIT/HYDRALAZINE HCL 20-37.5 MG TABLET PO SCH ×3 (05:30→22:55)
[2016-12-30] MEDS: LANSOPRAZOLE 30 MG TAB.RAP.DR PO SCH ×2 (05:30→17:59)
[2016-12-30] MEDS ORDERED: METOLAZONE 5 MG TABLET PO SCH ×2 (06:00)
[2016-12-30 07:39] LABS: ABSOLUTE EOSINOPHILS # (AUTO) 0.2 10^3/uL (0.0-0.6); ABSOLUTE LYMPHOCYTES (AUTO) 0.8 10^3/uL (0.5-4.7); ABSOLUTE NEUT (AUTO) 5.3 10^3/uL (1.7-8.2); BASOPHILS % (AUTO) 0.6 % (0-2); HEMATOCRIT 29.7 % (37.9-51.0); HEMOGLOBIN 9.8 g/dL (13.5-17.0); HGB HCT DIFFERENCE -0.3; LYMPHOCYTES % (AUTO) 10.9 % (13-45); MEAN CORPUSCULAR HEMOGLOBIN 29.2 pg (27.0-33.4); MEAN CORPUSCULAR HGB CONC 33.1 g/dL (32.0-36.0); MEAN CORPUSCULAR VOLUME 88 fl (80-97); MONOCYTES % (AUTO) 13.5 % (3-13); RED BLOOD COUNT 3.36 10^6/uL (4.35-5.55); RED CELL DISTRIBUTION WIDTH 14.8 % (11.5-14.0); WHITE BLOOD COUNT 7.3 10^3/uL (4.0-10.5)
[2016-12-30 08:11] LABS: CREATINE KINASE MB 4.98 ng/mL (<4.55); TROPONIN I 0.11 ng/mL
[2016-12-30 08:30] LABS: ANION GAP 11 (5-19); BLOOD UREA NITROGEN 93 mg/dL (7-20); CALCIUM 9.9 mg/dL (8.4-10.2); CARBON DIOXIDE 26 mmol/L (22-30); CHLORIDE 103 mmol/L (98-107); CREATINE KINASE 1170 U/L (55-170); CREATININE RESULT 3.75 mg/dL (0.52-1.25); GLUCOSE 162 mg/dL (75-110); MAGNESIUM 1.9 mg/dL (1.6-2.3); POTASSIUM 3.7 mmol/L (3.6-5.0); SODIUM 140.3 mmol/L (137-145)
[2016-12-30] MEDS ORDERED: METOPROLOL TARTRATE 25 MG TABLET PO SCH (10:00)
[2016-12-30] MEDS: DOCUSATE SODIUM 100 MG CAPSULE PO SCH (10:52)
[2016-12-30] MEDS: ASPIRIN 81 MG TABLET, ENT COATED PO SCH (10:52)
[2016-12-30] MEDS: CLOPIDOGREL BISULFATE 75 MG TABLET PO SCH (10:53)
[2016-12-30] MEDS: BUMETANIDE INJ/PF 1 MG/4 ML SDV IV SCH ×2 (12:02→22:55)
[2016-12-30 14:09] LABS: TROPONIN I 0.117 ng/mL
--- NOTE | 2016-12-30 14:14 | PDOC PROGRESS REPORT ---
Subjective Progress Note for:: 12/30/16 Subjective:: Patient is feeling better this morning. Having some coughing but less. Lower extremity edema is getting better. No worsening of the wounds were noted on the legs. No chills or fever. No chest pain. No nausea or vomiting. Physical Exam Vital Signs: Temp Pulse Resp BP Pulse Ox 98.4 F 72 20 127/73 H 98 12/30/16 12:28 12/30/16 12:28 12/30/16 12:28 12/30/16 12:28 12/30/16 12:28 Pulse Oximeter Continuous Start: 12/29/16 17: 49 Freq: RTQ4 Status: Active Document 12/30/16 12:00 DSH (Rec: 12/30/16 12:24 DSH [email or web address]) Pulse Oximetry Assessment Oxygen Saturation (92-100) 94 Oxygen Flow Rate (L/min) 1.5 Oxygen Delivery Method Nasal Cannula Equipment Usage Equipment in Use Continuous SpO2 Machine # [id number] Intake & Output 12/29/16 12/30/16 12/31/16 06:59 06:59 06:59 Intake Total 328 Output Total 1970 Balance -1642 Weight 96.4 kg General appearance: PRESENT: no acute distress, cooperative Head exam: PRESENT: normocephalic Eye exam: PRESENT: EOMI Ear exam: PRESENT: normal external ear exam Mouth exam: PRESENT: moist, neck supple Neck exam: ABSENT: JVD Respiratory exam: PRESENT: clear to auscultation gabriel, rales - Occasional on the lower lung field, unlabored - Anteriorly bilateral. ABSENT: wheezes Cardiovascular exam: PRESENT: RRR. ABSENT: gallop GI/Abdominal exam: PRESENT: hypoactive bowel sounds, soft. ABSENT: ascites, distended Extremities exam: PRESENT: +1 edema Skin exam: PRESENT: warm. ABSENT: cyanosis Results Laboratory Results: 12/30/16 07:28 12/30/16 07:28 12/30/16 12/30/16 07:28 07:28 WBC 7.3 RBC 3.36 L Hgb 9.8 L Hct 29.7 L MCV 88 MCH 29.2 MCHC 33.1 RDW 14.8 H Plt Count 155 Seg Neutrophils % 72.0 Lymphocytes % 10.9 L Monocytes % 13.5 H Eosinophils % 3.0 Basophils % 0.6 Absolute Neutrophils 5.3 Absolute Lymphocytes 0.8 Absolute Monocytes 1.0 Absolute Eosinophils 0.2 Absolute Basophils 0.0 Sodium 140.3 Potassium 3.7 Chloride 103 Carbon Dioxide 26 Anion Gap 11 BUN 93 H Creatinine 3.75 H Est GFR ( Amer) 19 L Est GFR (Non-Af Amer) 16 L Glucose 162 H Calcium 9.9 Magnesium 1.9 12/29/16 12/29/16 12/30/16 19:23 19:23 01:24 Creatine Kinase 2012 H 1326 H CK-MB (CK-2) 8.54 H Troponin I 0.114 12/30/16 12/30/16 12/30/16 01:24 07:28 07:28 Creatine Kinase 1170 H CK-MB (CK-2) 6.70 H 4.98 H Troponin I 0.103 0.110 Impressions: Chest X-Ray 12/29/16 14:28 IMPRESSION: Pulmonary vascular congestion with mild interstitial edema. Stable cardiomegaly. Unchanged left-sided dual lead pacemaker Assessment & Plan - Diagnosis (1) Congestive heart failure Qualifiers: Congestive heart failure type: systolic Congestive heart failure chronicity : acute Qualified Code(s): I50.21 - Acute systolic (congestive) heart failure Is this a current diagnosis for this admission?: Yes (2) Anemia of chronic disease Is this a current diagnosis for this admission?: Yes (3) Chronic renal failure, stage 4 (severe) Is this a current diagnosis for this admission?: Yes (4) Thrombocytopenia Is this a current diagnosis for this admission?: Yes (5) CAD (coronary artery disease), [place] coronary artery Qualifiers: [place] vs. transplanted heart: [place] heart Associated angina: angina presence unspecified Qualified Code(s): I25.10 - Atherosclerotic heart disease of [place] coronary artery without angina pectoris Is this a current diagnosis for this admission?: Yes (6) COPD (chronic obstructive pulmonary disease) Qualifiers: COPD type: emphysema Emphysema type: unspecified Qualified Code(s): J43.9 - Emphysema, unspecified Is this a current diagnosis for this admission?: Yes (7) Diabetes Qualifiers: Diabetes mellitus type: type 2 Diabetes mellitus complication status: with unspecified complications Diabetes mellitus longterm insulin use: with exterminator termite use Qualified Code(s): E11.8 - Type 2 diabetes mellitus with unspecified complications Is this a current diagnosis for this admission?: Yes (8) Open leg wound Qualifiers: Encounter type: initial encounter Laterality: unspecified laterality Qualified Code(s): S81.809A - Unspecified open wound, unspecified lower leg, initial encounter Is this a current diagnosis for this admission?: Yes (9) Peripheral vascular disease Is this a current diagnosis for this admission?: Yes (10) GERD (gastroesophageal reflux disease) Qualifiers: Esophagitis presence: without esophagitis Qualified Code(s): K21.9 - Gastro -esophageal reflux disease without esophagitis Is this a current diagnosis for this admission?: Yes (11) Essential hypertension Is this a current diagnosis for this admission?: Yes (12) Hyperlipidemia Qualifiers: Hyperlipidemia type: unspecified Qualified Code(s): E78.5 - Hyperlipidemia , unspecified Is this a current diagnosis for this admission?: Yes (13) Pulmonary hypertension Is this a current diagnosis for this admission?: Yes (14) Ischemic cardiomyopathy Is this a current diagnosis for this admission?: Yes (15) Valvular heart disease Is this a current diagnosis for this admission?: Yes - Time Time Spent with patient: 25-34 minutes - Plan Summary Plan Summary: We are going to do wound care with wet-to-dry dressing and then apply Silvadene cream. Continue current diuretics. Monitor creatinine and follow-up chest x- ray in the morning. Awaiting nephrology evaluation.
--- NOTE | 2016-12-30 14:49 | PDOC CONSULTATION ---
Consultation Consult Date: 12/30/16 Consult reason:: CKD 4 and congestive heart failure. History of Present Illness Admission Date/PCP: 12/29/16 17:47 KRISTIN STEPHENS NP History of Present Illness: LATASHA BARLOW is a 76 year old male with history of, chronic kidney disease stage IV with base creatinine between 3.5 and 3.7, ischemic cardiomyopathy, pulmonary hypertension, and valvular heart disease, COPD presents to the hospital with progressive shortness of breath of 2 days' duration leading to orthopnea. Patient also noted increasing swelling on both lower extremities. He had a chest pain yesterday but it is precordial with no radiation but apparently increases with coughing. He also complains of cough with mucopurulent expectoration. He had episodes of nausea but no vomiting associated. There is no palpitation. No chills or fever, sinus congestion, sore throat, nor pleurisy. He is living on his own after his recently. He says he is on a low salt intake. Denies any usage of NSAIDs. The patient went to the emergency room for evaluation. Chest x-ray revealed pulmonary vascular congestion. Creatinine of 3.68 with increasing BUN of 90. The patient was given oxygen and diuretics and was referred for admission. Patient currently feeling lots better after adequate diuresis with intravenous diuretics. Is able to lie flat at the moment. Past Medical History Cardiac Medical History: Reports: Coronary Artery Disease, Hyperlipidemia, Hypertension-primary, Myocardial Infarction, Peripheral Vascular Disease Pulmonary Medical History: Reports: Chronic Obstructive Pulmonary Disease (COPD) Denies: Tuberculosis Neurological Medical History: Denies: Seizures Endocrine Medical History: Reports: Diabetes Mellitus Type 2 Renal/ Medical History: Reports: Benign Prostatic Hyperplasia, Chronic Kidney Disease Stage IV GI Medical History: Reports: Gastroesophageal Reflux Disease Musculoskeltal Medical History: Reports: Arthritis Psychiatric Medical History: Denies: Depression Past Surgical History Past Surgical History: Reports: Cardiac Catheterization, Coronary Stent, Pacemaker - PPM removed and replaced by ICD, Other - TURP Social History Smoking Status: Unknown if Ever Smoked Number of Years Smokin Last Time Smoked: 1996 Frequency of Alcohol Use: None Hx Recreational Drug Use: No Drugs: None Hx Prescription Drug Abuse: No - Advance Directive Resuscitation Status: Full Code Family History Parental Family History Reviewed: Yes - Denies any history of ESRD Children Family History Reviewed: No Sibling(s) Family History Reviewed.: No Medication/Allergy Home Medications: Aspirin [Aspirin EC] 81 mg PO DAILY 12/29/16 Atorvastatin Calcium [Lipitor 80 mg Tablet] 80 mg PO QHS 12/29/16 Clopidogrel Bisulfate [Plavix 75 mg Tablet] 75 mg PO DAILY 12/29/16 Digoxin [Digitek] 125 mcg PO DAILY@1300 12/29/16 Ergocalciferol (Vitamin D2) [Vitamin D2] 50,000 units PO MO@1000 12/29/16 Furosemide [Lasix 20 mg Tablet] 20 mg PO QPM 12/29/16 Furosemide [Lasix 20 mg Tablet] 40 mg PO QAM 12/29/16 Gabapentin [Neurontin 100 mg Capsule] 100 mg PO QHS 12/29/16 Insulin Glargine,Hum.rec.anlog [Lantus Solostar] 40 units SQ QHS 12/29/16 Insulin Lispro [Humalog] See Protocol SQ ACHSP PRN 12/29/16 Isosorb Dinit/Hydralazine HCl [Bidil 20-37.5 mg Tablet] 1 tab PO Q12 12/29/16 Losartan Potassium [Cozaar 50 mg Tablet] 50 mg PO DAILY 12/29/16 Metoprolol Succinate [Toprol Xl 50 mg Tab.sr] 50 mg PO Q12 12/29/16 Tamsulosin HCl [Flomax 0.4 mg Cap.sr] 0.4 mg PO PCBRKFST 12/29/16 Warfarin Sodium [Coumadin 5 mg Tablet] 5 mg PO DAILY 12/29/16 Allergies/Adverse Reactions: morphine [Morphine] Allergy (Severe, Verified 12/29/16 14:23) Hallucinations, Agitation Penicillins Allergy (Severe, Verified 12/29/16 14:23) Hallucinations, Agitation Review of Systems Constitutional: PRESENT: weakness. ABSENT: fatigue, fever(s), headache(s), night sweats Nose, Mouth, and Throat: ABSENT: mouth pain, sore throat Cardiovascular: PRESENT: dyspnea on exertion, edema, orthropnea, palpitations Respiratory: PRESENT: cough, dyspnea. ABSENT: hemoptysis Gastrointestinal: PRESENT: nausea. ABSENT: coffee ground emesis, constipation, diarrhea, dysphagia, heartburn, hematemesis, hematochezia Neurological: ABSENT: abnormal gait, abnormal speech, confusion, focal weakness , frequent falls, lack of coordination Endocrine: ABSENT: cold intolerance, polydipsia Hematologic/Lymphatic: ABSENT: easy bruising, lymphadenopathy Physical Exam Vital Signs: Temp Pulse Resp BP Pulse Ox 98.4 F 72 20 127/73 H 98 12/30/16 12:28 12/30/16 12:28 12/30/16 12:28 12/30/16 12:28 12/30/16 12:28 Pulse Oximeter Continuous Start: 12/29/16 17: 49 Freq: RTQ4 Status: Active Document 12/30/16 12:00 [facility] (Rec: 12/30/16 12:24 DS [email or web address]) Pulse Oximetry Assessment Oxygen Saturation (92-100) 94 Oxygen Flow Rate (L/min) 1.5 Oxygen Delivery Method Nasal Cannula Equipment Usage Equipment in Use Continuous SpO2 Machine # [id number] Intake & Output 12/29/16 12/30/16 12/31/16 06:59 06:59 06:59 Intake Total 328 Output Total 1970 Balance -1642 Weight 96.4 kg General appearance: PRESENT: mild distress Eye exam: PRESENT: conjunctiva pink, EOMI, PERRLA. ABSENT: nystagmus Ear exam: PRESENT: normal external ear exam Mouth exam: PRESENT: moist, neck supple Neck exam: ABSENT: lymphadenopathy, meningismus, tenderness, thyromegaly, tracheal deviation Respiratory exam: PRESENT: clear to auscultation gabriel, crackles, decreased breath sounds. ABSENT: rhonchi Cardiovascular exam: PRESENT: +S1, +S2 GI/Abdominal exam: PRESENT: normal bowel sounds, soft. ABSENT: diminished bowel sounds, organomegaly, tenderness Extremities exam: PRESENT: +1 edema Neurological exam: PRESENT: alert, awake, oriented to person, oriented to place Skin exam: PRESENT: erythema - With skin blisters on both lower extremities. ABSENT: mottled, rash, urticaria Results Laboratory Results: 12/30/16 07:28 12/30/16 07:28 12/30/16 12/30/16 07:28 07:28 WBC 7.3 RBC 3.36 L Hgb 9.8 L Hct 29.7 L MCV 88 MCH 29.2 MCHC 33.1 RDW 14.8 H Plt Count 155 Seg Neutrophils % 72.0 Lymphocytes % 10.9 L Monocytes % 13.5 H Eosinophils % 3.0 Basophils % 0.6 Absolute Neutrophils 5.3 Absolute Lymphocytes 0.8 Absolute Monocytes 1.0 Absolute Eosinophils 0.2 Absolute Basophils 0.0 Sodium 140.3 Potassium 3.7 Chloride 103 Carbon Dioxide 26 Anion Gap 11 BUN 93 H Creatinine 3.75 H Est GFR ( Amer) 19 L Est GFR (Non-Af Amer) 16 L Glucose 162 H Calcium 9.9 Magnesium 1.9 12/29/16 12/29/16 12/30/16 19:23 19:23 01:24 Creatine Kinase 2012 H 1326 H CK-MB (CK-2) 8.54 H Troponin I 0.114 12/30/16 12/30/16 12/30/16 01:24 07:28 07:28 Creatine Kinase 1170 H CK-MB (CK-2) 6.70 H 4.98 H Troponin I 0.103 0.110 Impressions: Chest X-Ray 12/29/16 14:28 IMPRESSION: Pulmonary vascular congestion with mild interstitial edema. Stable cardiomegaly. Unchanged left-sided dual lead pacemaker Assessment & Plan - Diagnosis (1) Congestive heart failure Qualifiers: Congestive heart failure type: systolic Congestive heart failure chronicity : acute Qualified Code(s): I50.21 - Acute systolic (congestive) heart failure Is this a current diagnosis for this admission?: Yes Plan: He has responded well to current IV diuretics. I would watch his output carefully and cut back on his diuretics as I think he is going to get bit too over diuresed and lead to further worsening of renal functions.With that in mind I am going to cut back on the metolazone to just once a day and follow-up (2) Essential hypertension Is this a current diagnosis for this admission?: Yes Plan: Controlled. Monitor. (3) Ischemic cardiomyopathy Is this a current diagnosis for this admission?: Yes Plan: Leading to congestive heart failure which is presently decompensated. However patient is clinically improved. Plans as outlined earlier. (4) Open leg wound Qualifiers: Encounter type: initial encounter Laterality: unspecified laterality Qualified Code(s): S81.809A - Unspecified open wound, unspecified lower leg, initial encounter Is this a current diagnosis for this admission?: Yes Plan: From chronic pedal edema. Some of these blisters have flattened out should help as long as he can maintain state of no edema.No signs of infection. (5) Chronic renal failure, stage 4 (severe) Is this a current diagnosis for this admission?: Yes Plan: Presently she is not showing any signs of uremia. Elect lites are stable. Monitor for need for initiation of hemodialysis which I have discussed with the patient. However his psychosocial situations is very poor. He has 3 children who are living out of state in [place], [place] and [place]. He needs to have one of them live with him or he needs to move with them. He says he will be talking with his children soon. (6) Diabetes Qualifiers: Diabetes mellitus type: type 2 Diabetes mellitus complication status: with unspecified complications Diabetes mellitus financial counselor insulin use: with snf use Qualified Code(s): E11.8 - Type 2 diabetes mellitus with unspecified complications Is this a current diagnosis for this admission?: Yes Plan: Advised on diet controlled. (7) Anemia of chronic disease Is this a current diagnosis for this admission?: Yes Plan: Initiate workup. If the studies are adequate will need to start him on erythropoietin.
--- NOTE | 2016-12-30 14:51 | RADIOLOGY REPORT (SQ) ---
EXAM DESCRIPTION: CHEST SINGLE VIEW COMPLETED DATE/TIME: 12/30/2016 2:32 pm REASON FOR STUDY: chf COMPARISON: Chest films 04/06/2013, 05/05/2016, 10/31/2016, 12/29/2016 EXAM PARAMETERS: NUMBER OF VIEWS: One view. TECHNIQUE: Single frontal radiographic view of the chest acquired. RADIATION DOSE: NA LIMITATIONS: None. FINDINGS: LUNGS AND PLEURA: Pulmonary vascular prominence with few Gill lines, similar compared to 12/29/2016. No fluffy alveolar edema. No pleural effusion. No pneumothorax. MEDIASTINUM AND HILAR STRUCTURES: No masses. Contour normal. HEART AND VASCULAR STRUCTURES: Stable moderate cardiomegaly BONES: No acute findings. HARDWARE: Left-sided dual lead pacemaker. OTHER: No other significant finding. IMPRESSION: Stable cardiomegaly, pulmonary vascular prominence. Very mild interstitial edema TECHNICAL DOCUMENTATION: JOB ID: [id number]
[2016-12-30] MEDS ORDERED: NITROGLYCERIN 0.4 MG/TAB 25 TAB/BOTTLE SL PRN (17:24)
[2016-12-30] MEDS: METOPROLOL TARTRATE 25 MG TABLET PO SCH (17:59)
[2016-12-30 18:28] LABS: CREATINE KINASE MB 4.8 ng/mL (<4.55); TROPONIN I 0.091 ng/mL
--- NOTE | 2016-12-30 19:48 | EKG REPORT ---
SEVERITY:- ABNORMAL ECG - SINUS RHYTHM FIRST DEGREE AV BLOCK RIGHT AXIS DEVIATION NONSPECIFIC T ABNORMALITIES, LATERAL LEADS : Confirmed by: Ector Galeana MD 30-Dec-2016 19:47:08
[2016-12-30] MEDS: SILVER SULFADIAZINE 1% CREAM 25 GM TP SCH (20:06)
--- NOTE | 2016-12-30 20:08 | PDOC CONSULTATION ---
Consultation Consult Date: 12/30/16 Attending physician:: BRIGID VOGT Consult reason:: Chest pain History of Present Illness Admission Date/PCP: 12/29/16 17:47 KRISTIN STEPHENS NP Patient complains of: Chest pain History of Present Illness: LATASHA BARLOW is a 76 year old male with history of, chronic kidney disease stage IV with base creatinine between 3.5 and 3.7, ischemic cardiomyopathy, pulmonary hypertension, and valvular heart disease, COPD presents to the hospital with progressive shortness of breath of 2 days' duration leading to orthopnea. Patient also noted increasing swelling on both lower extremities. He had a chest pain yesterday but it is precordial with no radiation but apparently increases with coughing. He also complains of cough with mucopurulent expectoration. He had episodes of nausea but no vomiting associated. There is no palpitation. No chills or fever, sinus congestion, sore throat, nor pleurisy. He is living on his own after his recently. He says he is on a low salt intake. Denies any usage of NSAIDs. The patient went to the emergency room for evaluation. Chest x-ray revealed pulmonary vascular congestion. Creatinine of 3.68 with increasing BUN of 90. The patient was given oxygen and diuretics and was referred for admission. Patient currently feeling lots better after adequate diuresis with intravenous diuretics. Is able to lie flat at the moment. Patient today complaint of few episodes of chest pain. They seem to be positional and tends to get worse with twisting turning and also with local pressure. Patient's troponin I in the indeterminate range. Twelve-lead EKG obtained shows minor nonspecific ST-T wave changes. Patient currently not on dialysis. This history was reviewed, supplemented and confirmed. Past Medical History Cardiac Medical History: Reports: Congestive Heart Failure, Coronary Artery Disease, Myocardial Infarction, Hyperlipidema, Hypertension, Peripheral Vascular Disease Pulmonary Medical History: Reports: Chronic Obstructive Pulmonary Disease (COPD) Denies: Tuberculosis Neurological Medical History: Denies: Seizures Endocrine Medical History: Reports: Diabetes Mellitus Type 2 GI Medical History: Reports: Gastroesophageal Reflux Disease Musculoskeltal Medical History: Reports: Arthritis Psychiatric Medical History: Denies: Depression Hematology: Reports: Anemia Past Surgical History Past Surgical History: Reports: Cardiac Catheterization, Coronary Stent, Pacemaker - PPM removed and replaced by ICD, Other - TURP Social History Information Source: Patient Smoking Status: Unknown if Ever Smoked Number of Years Smokin Last Time Smoked: 1996 Frequency of Alcohol Use: None Hx Recreational Drug Use: No Drugs: None Hx Prescription Drug Abuse: No - Advance Directive Resuscitation Status: Full Code Family History Family History: Hyperlipidemia, Hypertension Parental Family History Reviewed: Yes Children Family History Reviewed: Yes Sibling(s) Family History Reviewed.: Yes Medication/Allergy Home Medications: Aspirin [Aspirin EC] 81 mg PO DAILY 12/29/16 Atorvastatin Calcium [Lipitor 80 mg Tablet] 80 mg PO QHS 12/29/16 Clopidogrel Bisulfate [Plavix 75 mg Tablet] 75 mg PO DAILY 12/29/16 Digoxin [Digitek] 125 mcg PO DAILY@1300 12/29/16 Ergocalciferol (Vitamin D2) [Vitamin D2] 50,000 units PO MO@1000 12/29/16 Furosemide [Lasix 20 mg Tablet] 20 mg PO QPM 12/29/16 Furosemide [Lasix 20 mg Tablet] 40 mg PO QAM 12/29/16 Gabapentin [Neurontin 100 mg Capsule] 100 mg PO QHS 12/29/16 Insulin Glargine,Hum.rec.anlog [Lantus Solostar] 40 units SQ QHS 12/29/16 Insulin Lispro [Humalog] See Protocol SQ ACHSP PRN 12/29/16 Isosorb Dinit/Hydralazine HCl [Bidil 20-37.5 mg Tablet] 1 tab PO Q12 12/29/16 Losartan Potassium [Cozaar 50 mg Tablet] 50 mg PO DAILY 12/29/16 Metoprolol Succinate [Toprol Xl 50 mg Tab.sr] 50 mg PO Q12 12/29/16 Tamsulosin HCl [Flomax 0.4 mg Cap.sr] 0.4 mg PO PCBRKFST 12/29/16 Warfarin Sodium [Coumadin 5 mg Tablet] 5 mg PO DAILY 12/29/16 Allergies/Adverse Reactions: morphine [Morphine] Allergy (Severe, Verified 12/29/16 14:23) Hallucinations, Agitation Penicillins Allergy (Severe, Verified 12/29/16 14:23) Hallucinations, Agitation Review of Systems Review of Systems: Please see history of present illness and past medical history as wall. Constitutional: No fever or chills reported. Head : No recent chronic headaches, recent head injury. Eyes: No recent eye pain, diplopia, redness, discharge, acute visual changes. Ears: No recent chronic ear pain, acute hearing loss, ear discharge. Oral cavity: No recent ulcerations, bleeding, oral cavity discomfort. Neck: No recent acute neck pain reported. Hematologic: No recent easy bruising or bleeding or hematologic malignancy reported. Lymphatic: No recent lymphatic malignancy, chronic lymphadenopathy reported yet Cardiovascular system review: See history of present illness. Respiratory system review: No recent chronic cough, hemoptysis, blood clots in the lungs reported. Significant shortness of breath on exertion Gastrointestinal system review: Negative for any recent acute or chronic abdominal pain, hematemesis, melena, recent change in bowel habits. Genitourinary system review: No recent acute or chronic hematuria, flank pain, UTI etc. reported. History of chronic renal failure being followed by web search evaluator. Skin system review: Negative for any recent abnormal bruising, patient had some history of pruritus. A ulceration has been noted in the left lower extremity.. Neurologic: No prior history of strokes, mini strokes, seizure disorder. Psychologic: No history of major psychosis or major depression reported. Musculoskeletal: Minor aches and pains reported. No acute joint swelling reported. Endocrine: No recent polyuria, polydipsia, recent heat or cold intolerance. Physical Exam Vital Signs: Temp Pulse Resp BP Pulse Ox 98.2 F 80 24 H 114/66 95 12/30/16 15:22 12/30/16 18:37 12/30/16 15:22 12/30/16 15:22 12/30/16 16:28 Pulse Oximeter Continuous Start: 12/29/16 17: 49 Freq: RTQ4 Status: Active Document 12/30/16 16:28 [facility] (Rec: 12/30/16 16:29 [facility] [email or web address]) Pulse Oximetry Assessment Oxygen Saturation (92-100) 95 Oxygen Flow Rate (L/min) 1.5 Oxygen Delivery Method Nasal Cannula Equipment Usage Equipment in Use Continuous SpO2 Machine # 7 Intake & Output 12/29/16 12/30/16 12/31/16 06:59 06:59 06:59 Intake Total 328 866 Output Total 0212 7485 Balance -1642 -329 Weight 96.4 kg 96.4 kg Exam: GENERAL: well-nourished and in no acute distress. Alert and oriented x3 HEAD: Atraumatic, normocephalic. EYES: Pupils equal round and reactive to light, extraocular movements intact, sclera anicteric, conjunctiva are normal. ENT: TMs normal, nares patent, oropharynx clear without exudates. Moist mucous membranes. No oral ulcerations or bleeding gums noted NECK: supple without lymphadenopathy. Trachea is central. No cervical or axillary lymphadenopathy noted. Carotids are 2+, JVD 10-12 cm LUNGS: Respiration seems nonlabored, no significant accessory muscle action noted. Bibasilar fine crackles noted. CHEST: Palpation of the chest wall shows positive for significant chest wall tenderness. No other significant abnormalities noted. 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 ABDOMEN: Soft, no significant tenderness appreciated, normoactive bowel sounds. No guarding, no rebound. No rigidity noted . No masses appreciated. EXTREMITIES: Pedal pulses are 1-2+, no calf tenderness noted. No clubbing or cyanosis. 1-2 + pedal edema noted, ulceration noted left lower leg. NEUROLOGICAL: Focused neurological exam showed no significant neurologic deficit. Normal speech, no focal weakness appreciated. PSYCH: Normal mood, normal affect. Judgment and insight within normal limits. SKIN: No significant ecchymosis, ulceration covered noted both lower leg with some erythematous rash. MUSCULOSKELETAL EXAM: No significant joint swelling noted. Results Laboratory Results: 12/30/16 07:28 12/30/16 07:28 12/30/16 12/30/16 07:28 07:28 WBC 7.3 RBC 3.36 L Hgb 9.8 L Hct 29.7 L MCV 88 MCH 29.2 MCHC 33.1 RDW 14.8 H Plt Count 155 Seg Neutrophils % 72.0 Lymphocytes % 10.9 L Monocytes % 13.5 H Eosinophils % 3.0 Basophils % 0.6 Absolute Neutrophils 5.3 Absolute Lymphocytes 0.8 Absolute Monocytes 1.0 Absolute Eosinophils 0.2 Absolute Basophils 0.0 Sodium 140.3 Potassium 3.7 Chloride 103 Carbon Dioxide 26 Anion Gap 11 BUN 93 H Creatinine 3.75 H Est GFR ( Amer) 19 L Est GFR (Non-Af Amer) 16 L Glucose 162 H Calcium 9.9 Magnesium 1.9 12/29/16 12/29/16 12/30/16 19:23 19:23 01:24 Creatine Kinase 2012 H 1326 H CK-MB (CK-2) 8.54 H Troponin I 0.114 12/30/16 12/30/16 12/30/16 01:24 07:28 07:28 Creatine Kinase 1170 H CK-MB (CK-2) 6.70 H 4.98 H Troponin I 0.103 0.110 12/30/16 12/30/16 17:50 17:50 Creatine Kinase 1152 H CK-MB (CK-2) 4.80 H Troponin I 0.091 EKG Comments: Sinus rhythm with APCs, LVH, nonspecific ST-T wave changes noted Impressions: Chest X-Ray 12/30/16 00:00 IMPRESSION: Stable cardiomegaly, pulmonary vascular prominence. Very mild interstitial edema Assessment & Plan - Diagnosis (1) Chest pain Qualifiers: Chest pain type: unspecified Qualified Code(s): R07.9 - Chest pain, unspecified Is this a current diagnosis for this admission?: Yes (2) Elevated troponin I level Is this a current diagnosis for this admission?: Yes (3) Congestive heart failure Qualifiers: Congestive heart failure type: systolic Congestive heart failure chronicity : acute Qualified Code(s): I50.21 - Acute systolic (congestive) heart failure Is this a current diagnosis for this admission?: Yes (4) Essential hypertension Is this a current diagnosis for this admission?: Yes (5) Hyperlipidemia Qualifiers: Hyperlipidemia type: unspecified Qualified Code(s): E78.5 - Hyperlipidemia , unspecified Is this a current diagnosis for this admission?: Yes (6) Ischemic cardiomyopathy Is this a current diagnosis for this admission?: Yes (7) CAD (coronary artery disease), [place] coronary artery Qualifiers: [place] vs. transplanted heart: [place] heart Associated angina: angina presence unspecified Qualified Code(s): I25.10 - Atherosclerotic heart disease of [place] coronary artery without angina pectoris Is this a current diagnosis for this admission?: Yes (8) Chronic renal failure, stage 4 (severe) Is this a current diagnosis for this admission?: Yes (9) Diabetes Qualifiers: Diabetes mellitus type: type 2 Diabetes mellitus complication status: with unspecified complications Diabetes mellitus retirement insulin use: with retirement use Qualified Code(s): E11.8 - Type 2 diabetes mellitus with unspecified complications Is this a current diagnosis for this admission?: Yes - Notes Notes: Chest pain: Sounds atypical probably musculoskeletal. Patient does have significant cardiac risk factors, known CAD. Will consider scheduling a nuclear stress test prior to discharge. In the meantime, treat with nitroglycerin sublingual, optimizing therapy for underlying CAD. Elevated troponin I: This is in the indeterminate range and possibly related to CHF, chronic kidney disease etc. Will obtain a 2D echo to evaluate LVEF. Congestive heart failure: JVP is still elevated. Continue diuretic therapy. Hyperlipidemia: LDL goal is less than 70. Recommend statin therapy at least intermediate or high dose, of high potency status. Periodic lipid panel and liver panel is indicated. Patient to report any significant muscle discomfort or other side effects. CAD: Will optimize medical therapy. Currently stable. Methods to reduce progression of chronic kidney disease discussed. This would include good control of blood pressure, diabetes, treatment of sleep apnea if present, weight loss etc. Also discussed avoiding nephrotoxic drugs and medication, IVP dye etc. certain blood pressure medications such as LEELEE inhibitor, ARB can also reduce progression of chronic kidney disease. May consider dialysis. Diabetes: Recommend good control of blood sugar. However should avoid any hypoglycemia. Patient being expertly managed by primary care M.D. Patient gives history of snoring therefore may have underlying sleep apnea syndrome. Patient will benefit from sleep study. - Time Time Spent: 50 to 70 Minutes - CODE STATUS was discussed, patient remains full code. Surrogate decision-maker unchanged. Multiple medical problems were addressed. More than 50% of the time spent coordinating care, discussing management plans with involved caregivers. Management plans discussed with involved personnels. Medical decision making was of moderate to high complexity , patient's has multiple comorbidities. Medications reviewed and adjusted accordingly: Yes
[2016-12-30] MEDS: ATORVASTATIN CALCIUM 80 MG TABLET PO SCH (22:55)
[2016-12-30] MEDS: GABAPENTIN 100 MG CAPSULE PO SCH (22:55)
[2016-12-31 00:37] LABS: CREATINE KINASE MB 4.74 ng/mL (<4.55); TROPONIN I 0.085 ng/mL
[2016-12-31 04:41] LABS: ANION GAP 14 (5-19); BLOOD UREA NITROGEN 96 mg/dL (7-20); CALCIUM 10.1 mg/dL (8.4-10.2); CARBON DIOXIDE 29 mmol/L (22-30); CHLORIDE 97 mmol/L (98-107); CREATINE KINASE 1200 U/L (55-170); CREATININE RESULT 3.95 mg/dL (0.52-1.25); GLUCOSE 164 mg/dL (75-110); PHOSPHORUS 4.1 mg/dL (2.5-4.5); POTASSIUM 3.9 mmol/L (3.6-5.0); SODIUM 140.1 mmol/L (137-145)
[2016-12-31 04:53] LABS: CREATINE KINASE MB 4.11 ng/mL (<4.55); TROPONIN I 0.094 ng/mL
[2016-12-31] MEDS: METOPROLOL TARTRATE 25 MG TABLET PO SCH ×2 (05:16→17:52)
[2016-12-31] MEDS: ISOSORB DINIT/HYDRALAZINE HCL 20-37.5 MG TABLET PO SCH ×3 (05:16→22:23)
[2016-12-31] MEDS: HEPARIN SOD (PORCINE) 5,000 UNIT/ML 1 ML SYRINGE SUBCUT SCH ×3 (05:17→22:23)
[2016-12-31] MEDS: LANSOPRAZOLE 30 MG TAB.RAP.DR PO SCH ×2 (05:17→16:07)
[2016-12-31] MEDS: INSULIN REG, HUMAN 100 UNIT/ML 3 ML VIAL (PYX) SUBCUT PRN ×4 (07:26→22:23)
[2016-12-31] MEDS ORDERED: METOLAZONE 5 MG TABLET PO SCH (10:00)
[2016-12-31] MEDS: ASPIRIN 81 MG TABLET, ENT COATED PO SCH (11:17)
[2016-12-31] MEDS: CLOPIDOGREL BISULFATE 75 MG TABLET PO SCH (11:17)
[2016-12-31] MEDS: DOCUSATE SODIUM 100 MG CAPSULE PO SCH (11:18)
--- NOTE | 2016-12-31 11:55 | PDOC PROGRESS REPORT ---
Subjective Progress Note for:: 12/31/16 Subjective:: Patient is feeling much better today. Shortness of breath has resolved. Did have some chest pain yesterday but enzymes were negative. Cardiology evaluated the patient. Echocardiogram was ordered. Today he is having some knee pain on the right. Patient having difficulty ambulating because of the pain. No chills or fever, nausea or vomiting, no diarrhea. No abdominal pain as well. Physical Exam Vital Signs: Temp Pulse Resp BP Pulse Ox 98.3 F 75 20 133/55 H 100 12/31/16 07:38 12/31/16 07:38 12/31/16 07:38 12/31/16 07:38 12/31/16 07:38 Pulse Oximeter Continuous Start: 12/29/16 17: 49 Freq: RTQ4 Status: Active Document 12/31/16 04:00 LRO (Rec: 12/31/16 04:50 LRO [email or web address]) Pulse Oximetry Assessment Oxygen Saturation (92-100) 99 Oxygen Flow Rate (L/min) 1.5 Oxygen Delivery Method Nasal Cannula Equipment Usage Equipment in Use Continuous Pulse Oximeter 24 Hour Charge Charge Now Continuous SpO2 Machine # 7 Intake & Output 12/30/16 12/31/16 01/01/17 06:59 06:59 06:59 Intake Total 328 1277 Output Total 1970 2940 Balance -1642 -1663 Weight 96.4 kg 93.1 kg General appearance: PRESENT: no acute distress, cooperative Head exam: PRESENT: normocephalic Eye exam: PRESENT: conjunctiva pale, EOMI Mouth exam: PRESENT: moist, neck supple Neck exam: ABSENT: JVD Respiratory exam: PRESENT: clear to auscultation gabriel. ABSENT: rhonchi, wheezes Cardiovascular exam: PRESENT: RRR. ABSENT: gallop GI/Abdominal exam: PRESENT: soft. ABSENT: distended, tenderness Extremities exam: PRESENT: other - Trace lower extremity edema, wounds on bilateral leg stable and clean and dry without any foul-smelling drainage at this time. Musculoskeletal exam: PRESENT: tenderness - Right knee minimal swelling Neurological exam: PRESENT: alert, awake, oriented to situation Skin exam: PRESENT: dry, warm. ABSENT: cyanosis Results Laboratory Results: 12/30/16 07:28 12/31/16 04:11 12/31/16 12/31/16 04:11 04:11 Retic Count (auto) 2.26 Absolute Retic 0.080 Sodium 140.1 Potassium 3.9 Chloride 97 L Carbon Dioxide 29 Anion Gap 14 BUN 96 H Creatinine 3.95 H Est GFR ( Amer) 18 L Est GFR (Non-Af Amer) 15 L Glucose 164 H Calcium 10.1 Phosphorus 4.1 Iron 27.2 L TIBC 263 % Saturation 10 Ferritin 60.80 Vitamin B12 878.0 Folate 11.30 12/29/16 12/29/16 12/30/16 19:23 19:23 01:24 Creatine Kinase 2012 H 1326 H CK-MB (CK-2) 8.54 H Troponin I 0.114 12/30/16 12/30/16 12/30/16 01:24 07:28 07:28 Creatine Kinase 1170 H CK-MB (CK-2) 6.70 H 4.98 H Troponin I 0.103 0.110 12/30/16 12/30/16 12/31/16 17:50 17:50 00:03 Creatine Kinase 1152 H 1258 H CK-MB (CK-2) 4.80 H Troponin I 0.091 12/31/16 12/31/16 12/31/16 00:03 04:11 04:11 Creatine Kinase 1200 H CK-MB (CK-2) 4.74 H 4.11 Troponin I 0.085 0.094 Impressions: Chest X-Ray 12/30/16 00:00 IMPRESSION: Stable cardiomegaly, pulmonary vascular prominence. Very mild interstitial edema Assessment & Plan - Diagnosis (1) Congestive heart failure Qualifiers: Congestive heart failure type: systolic Congestive heart failure chronicity : acute Qualified Code(s): I50.21 - Acute systolic (congestive) heart failure Is this a current diagnosis for this admission?: Yes (2) Anemia of chronic disease Is this a current diagnosis for this admission?: Yes (3) Chronic renal failure, stage 4 (severe) Is this a current diagnosis for this admission?: Yes (4) Thrombocytopenia Is this a current diagnosis for this admission?: Yes (5) CAD (coronary artery disease), [place] coronary artery Qualifiers: [place] vs. transplanted heart: [place] heart Associated angina: angina presence unspecified Qualified Code(s): I25.10 - Atherosclerotic heart disease of [place] coronary artery without angina pectoris Is this a current diagnosis for this admission?: Yes (6) COPD (chronic obstructive pulmonary disease) Qualifiers: COPD type: emphysema Emphysema type: unspecified Qualified Code(s): J43.9 - Emphysema, unspecified Is this a current diagnosis for this admission?: Yes (7) Diabetes Qualifiers: Diabetes mellitus type: type 2 Diabetes mellitus complication status: with unspecified complications 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 insulin 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: with shelter use Qualified Code(s): E11.8 - Type 2 diabetes mellitus with unspecified complications Is this a current diagnosis for this admission?: Yes (8) Open leg wound Qualifiers: Encounter type: initial encounter Laterality: unspecified laterality Qualified Code(s): S81.809A - Unspecified open wound, unspecified lower leg, initial encounter Is this a current diagnosis for this admission?: Yes (9) Peripheral vascular disease Is this a current diagnosis for this admission?: Yes (10) GERD (gastroesophageal reflux disease) Qualifiers: Esophagitis presence: without esophagitis Qualified Code(s): K21.9 - Gastro -esophageal reflux disease without esophagitis Is this a current diagnosis for this admission?: Yes (11) Essential hypertension Is this a current diagnosis for this admission?: Yes (12) Hyperlipidemia Qualifiers: Hyperlipidemia type: unspecified Qualified Code(s): E78.5 - Hyperlipidemia , unspecified Is this a current diagnosis for this admission?: Yes (13) Pulmonary hypertension Is this a current diagnosis for this admission?: Yes (14) Ischemic cardiomyopathy Is this a current diagnosis for this admission?: Yes (15) Valvular heart disease Is this a current diagnosis for this admission?: Yes - Time Time Spent with patient: 25-34 minutes - Plan Summary Plan Summary: For echocardiogram today. We will obtain x-ray of the right knee. Give prednisone now with as needed Mobic one time dose now as well. Begin physical therapy. Possible gout. Continue current medications and supportive care. Continue current wound care as well.
[2016-12-31] MEDS ORDERED: PREDNISONE 20 MG TABLET PO ONE (12:15)
[2016-12-31] MEDS ORDERED: MELOXICAM 7.5 MG TABLET PO ONE (13:00)
--- NOTE | 2016-12-31 14:45 | RADIOLOGY REPORT (SQ) ---
EXAM DESCRIPTION: KNEE RIGHT 2 VIEWS COMPLETED DATE/TIME: 12/31/2016 2:28 pm REASON FOR STUDY: knee pain on right COMPARISON: None. NUMBER OF VIEWS: Two views. TECHNIQUE: AP and lateral radiographic images acquired of the right knee. LIMITATIONS: None. FINDINGS: MINERALIZATION: Normal. BONES: No acute fracture or dislocation. Old avulsion fragment off the medial aspect medial femoral condyle from an old medial collateral ligament injury. JOINT: Moderate suprapatellar knee joint effusion. Patellofemoral, medial, and lateral compartments are well maintained. SOFT TISSUES: Popliteal artery and tibioperoneal trunk calcifications OTHER: No other significant finding. IMPRESSION: Suprapatellar knee joint effusion. No acute fracture or malalignment TECHNICAL DOCUMENTATION: JOB ID: [id number] Medical Referral Source- All Rights Reserved
[2016-12-31] MEDS ORDERED: ONDANSETRON HCL INJ/PF 4 MG/2 ML SDV IV PRN (15:00)
--- NOTE | 2016-12-31 15:02 | PDOC PROGRESS REPORT ---
Subjective Progress Note for:: 12/31/16 Subjective:: Patient was laying comfortably in his bed at the time of exam. He has had some chest pain when he coughs. It does not radiate anywhere and shortly after coughing it goes away. He complains no SOB. He has produced almost 5L of urine over the past two days. Physical Exam Vital Signs: Temp Pulse Resp BP Pulse Ox 99.3 F 84 17 129/60 H 98 12/31/16 12:11 12/31/16 12:15 12/31/16 12:15 12/31/16 12:11 12/31/16 12:15 Pulse Oximeter Continuous Start: 12/29/16 17: 49 Freq: RTQ4 Status: Active Document 12/31/16 12:15 [facility] (Rec: 12/31/16 13:19 [facility] [email or web address]) Pulse Oximetry Assessment Oxygen Saturation (92-100) 98 Oxygen Flow Rate (L/min) 1.5 Oxygen Delivery Method Nasal Cannula Equipment Usage Equipment in Use Continuous SpO2 Machine # 7 Intake & Output 12/30/16 12/31/16 01/01/17 06:59 06:59 06:59 Intake Total 328 1277 474 Output Total 1970 2940 175 Balance -1642 -1663 299 Weight 96.4 kg 93.1 kg General appearance: PRESENT: no acute distress, well-developed, well-nourished Head exam: PRESENT: atraumatic, normocephalic Mouth exam: PRESENT: moist, neck supple, tongue midline Neck exam: PRESENT: full ROM. ABSENT: JVD, tracheal deviation Respiratory exam: PRESENT: clear to auscultation gabriel. ABSENT: accessory muscle use, crackles, rhonchi, tachypnea Cardiovascular exam: PRESENT: RRR, +S1, +S2 GI/Abdominal exam: PRESENT: normal bowel sounds, soft. ABSENT: diminished bowel sounds, organomegaly, tenderness Extremities exam: PRESENT: pedal edema - trace+, tenderness - left rose Musculoskeletal exam: PRESENT: normal inspection, tenderness - -left rose. ABSENT: deformity Neurological exam: PRESENT: alert, awake, oriented to person, oriented to place , oriented to time, oriented to situation Psychiatric exam: PRESENT: appropriate affect, normal mood Skin exam: PRESENT: dry, rash. ABSENT: erythema Results Laboratory Results: 12/30/16 07:28 12/31/16 04:11 12/31/16 12/31/16 04:11 04:11 Retic Count (auto) 2.26 Absolute Retic 0.080 Sodium 140.1 Potassium 3.9 Chloride 97 L Carbon Dioxide 29 Anion Gap 14 BUN 96 H Creatinine 3.95 H Est GFR ( Amer) 18 L Est GFR (Non-Af Amer) 15 L Glucose 164 H Calcium 10.1 Phosphorus 4.1 Iron 27.2 L TIBC 263 % Saturation 10 Ferritin 60.80 Vitamin B12 878.0 Folate 11.30 12/29/16 12/29/16 12/30/16 19:23 19:23 01:24 Creatine Kinase 2012 H 1326 H CK-MB (CK-2) 8.54 H Troponin I 0.114 12/30/16 12/30/16 12/30/16 01:24 07:28 07:28 Creatine Kinase 1170 H CK-MB (CK-2) 6.70 H 4.98 H Troponin I 0.103 0.110 12/30/16 12/30/16 12/31/16 17:50 17:50 00:03 Creatine Kinase 1152 H 1258 H CK-MB (CK-2) 4.80 H Troponin I 0.091 12/31/16 12/31/16 12/31/16 00:03 04:11 04:11 Creatine Kinase 1200 H CK-MB (CK-2) 4.74 H 4.11 Troponin I 0.085 0.094 Impressions: Chest X-Ray 12/30/16 00:00 IMPRESSION: Stable cardiomegaly, pulmonary vascular prominence. Very mild interstitial edema Assessment & Plan - Diagnosis (1) Congestive heart failure Qualifiers: Congestive heart failure type: systolic Congestive heart failure chronicity : acute Qualified Code(s): I50.21 - Acute systolic (congestive) heart failure Is this a current diagnosis for this admission?: Yes Plan: Looks to have had a good amount of fluid urinated out. Legs have very little edema and lungs sound clear. Will adjust bumex to 1mg bid. (2) Ischemic cardiomyopathy Is this a current diagnosis for this admission?: Yes Plan: looks to have gotten worse will be getting an echo today according to supervising nurse. (3) Open leg wound Qualifiers: Encounter type: initial encounter Laterality: unspecified laterality Qualified Code(s): S81.809A - Unspecified open wound, unspecified lower leg, initial encounter Is this a current diagnosis for this admission?: Yes Plan: still no signs of infection (4) Anemia of chronic disease Is this a current diagnosis for this admission?: Yes Plan: started on 325mg of ferrous sulfate and if hemoglobin keeps trending down will start procrit. 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
--- NOTE | 2016-12-31 19:26 | PDOC PROGRESS REPORT ---
Subjective Progress Note for:: 12/31/16 Subjective:: Patient seems to be doing better with gradual improvement. Chest pain seems to have improved.. Patient denying any PND, orthopnea. Patient denied any sustained palpitations, dizziness, syncope, near syncope. Patient denying any fever chills. Patient denying any other significant discomfort. Patient is maintaining sinus rhythm. 2D echo results were reviewed. Patient given results. Discussed that we should schedule him for a stress test. In this regard to risk benefits of nuclear stress test were discussed. Review of systems: Rest review of systems negative. Medications: Medications have been reviewed. Physical Exam Vital Signs: Temp Pulse Resp BP Pulse Ox 98.8 F 83 16 125/64 95 12/31/16 16:14 12/31/16 16:14 12/31/16 16:14 12/31/16 16:14 12/31/16 16:14 Pulse Oximeter Continuous Start: 12/29/16 17: 49 Freq: RTQ4 Status: Active Document 12/31/16 12:15 [facility] (Rec: 12/31/16 13:19 [facility] [email or web address]) Pulse Oximetry Assessment Oxygen Saturation (92-100) 98 Oxygen Flow Rate (L/min) 1.5 Oxygen Delivery Method Nasal Cannula Equipment Usage Equipment in Use Continuous SpO2 Machine # 7 Intake & Output 12/30/16 12/31/16 01/01/17 06:59 06:59 06:59 Intake Total 328 1277 1046 Output Total 1970 2940 750 Balance -1642 -1663 296 Weight 96.4 kg 93.1 kg Exam: GENERAL: well-nourished and in no acute distress. Alert and oriented x3 HEAD: Atraumatic, normocephalic. EYES: Pupils equal round and reactive to light, extraocular movements intact, sclera anicteric, conjunctiva are normal. ENT: TMs normal, nares patent, oropharynx clear without exudates. Moist mucous membranes. No oral ulcerations or bleeding gums noted NECK: supple without lymphadenopathy. Trachea is central. No cervical or axillary lymphadenopathy noted. Carotids are 2+, JVD WNL LUNGS: Respiration seems nonlabored, no significant accessory muscle action noted. Breath sounds clear to auscultation bilaterally and equal noted. No wheezes rales or rhonchi noted. No significant dullness noted on percussion. CHEST: Palpation of the chest wall shows left-sided chest wall tenderness. No other significant abnormalities noted. Chest wall tenderness is noted. 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 ABDOMEN: Soft, no significant tenderness appreciated, normoactive bowel sounds. No guarding, no rebound. No rigidity noted . No masses appreciated. EXTREMITIES: Pedal pulses are 1-2+, no calf tenderness noted. No clubbing or cyanosis.trace pedal edema noted NEUROLOGICAL: Focused neurological exam showed no significant neurologic deficit. Normal speech, no focal weakness appreciated. PSYCH: Normal mood, normal affect. Judgment and insight within normal limits. SKIN: No significant ecchymosis, rash, superficial ulceration noted both rose area. These are covered with bandages. MUSCULOSKELETAL EXAM: No significant joint swelling noted. Results Laboratory Results: 12/30/16 07:28 12/31/16 04:11 12/31/16 12/31/16 04:11 04:11 Retic Count (auto) 2.26 Absolute Retic 0.080 Sodium 140.1 Potassium 3.9 Chloride 97 L Carbon Dioxide 29 Anion Gap 14 BUN 96 H Creatinine 3.95 H Est GFR ( Amer) 18 L Est GFR (Non-Af Amer) 15 L Glucose 164 H Calcium 10.1 Phosphorus 4.1 Iron 27.2 L TIBC 263 % Saturation 10 Ferritin 60.80 Vitamin B12 878.0 Folate 11.30 12/29/16 12/29/16 12/30/16 19:23 19:23 01:24 Creatine Kinase 2012 H 1326 H CK-MB (CK-2) 8.54 H Troponin I 0.114 12/30/16 12/30/16 12/30/16 01:24 07:28 07:28 Creatine Kinase 1170 H CK-MB (CK-2) 6.70 H 4.98 H Troponin I 0.103 0.110 12/30/16 12/30/16 12/31/16 17:50 17:50 00:03 Creatine Kinase 1152 H 1258 H CK-MB (CK-2) 4.80 H Troponin I 0.091 12/31/16 12/31/16 12/31/16 00:03 04:11 04:11 Creatine Kinase 1200 H CK-MB (CK-2) 4.74 H 4.11 Troponin I 0.085 0.094 EKG Comments: Telemetry strip shows sinus rhythm. No sustained tachycardia or bradycardia arrhythmias noted. Impressions: Chest X-Ray 12/30/16 00:00 IMPRESSION: Stable cardiomegaly, pulmonary vascular prominence. Very mild interstitial edema Knee X-Ray 12/31/16 00:00 IMPRESSION: Suprapatellar knee joint effusion. No acute fracture or malalignment Assessment & Plan - Diagnosis (1) Chest pain Qualifiers: Chest pain type: unspecified Qualified Code(s): R07.9 - Chest pain, unspecified Is this a current diagnosis for this admission?: Yes (2) Elevated troponin I level Is this a current diagnosis for this admission?: Yes (3) Congestive heart failure Qualifiers: Congestive heart failure type: systolic Congestive heart failure chronicity : acute Qualified Code(s): I50.21 - Acute systolic (congestive) heart failure Is this a current diagnosis for this admission?: Yes (4) Essential hypertension Is this a current diagnosis for this admission?: Yes (5) Hyperlipidemia Qualifiers: Hyperlipidemia type: unspecified Qualified Code(s): E78.5 - Hyperlipidemia , unspecified Is this a current diagnosis for this admission?: Yes (6) Ischemic cardiomyopathy Is this a current diagnosis for this admission?: Yes (7) CAD (coronary artery disease), [place] coronary artery Qualifiers: [place] vs. 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 Nuclear stress test scheduled. Medications reviewed. Chest pain: Sounds atypical probably musculoskeletal. Patient does have significant cardiac risk factors, known CAD. Will schedule a nuclear stress test prior to discharge. In the meantime, treat with nitroglycerin sublingual, optimizing therapy for underlying CAD. Elevated troponin I: This is in the indeterminate range and possibly related to CHF, chronic kidney disease etc. 2D echo results reviewed. Congestive heart failure: JVP is now not elevated. Continue diuretic therapy. Hyperlipidemia: LDL goal is less than 70. Recommend statin therapy at least intermediate or high dose, of high potency status. Periodic lipid panel and liver panel is indicated. Patient to report any significant muscle discomfort or other side effects. CAD: Will optimize medical therapy. Currently stable. Methods to reduce progression of chronic kidney disease discussed. This would include good control of blood pressure, diabetes, treatment of sleep apnea if present, weight loss etc. Also discussed avoiding nephrotoxic drugs and medication, IVP dye etc. certain blood pressure medications such as LEELEE inhibitor, ARB can also reduce progression of chronic kidney disease. May consider dialysis. Diabetes: Recommend good control of blood sugar. However should avoid any hypoglycemia. Patient being expertly managed by primary care [facility] Patient gives history of snoring therefore may have underlying sleep apnea syndrome. Patient will benefit from sleep study. Rationale for scheduling a sleep study was discussed. - Time Time with patient: Greater than 35 minutes - CODE STATUS was discussed, patient remains full code. Surrogate decision-maker unchanged. Multiple medical problems were addressed. More than 50% of the time spent coordinating care, discussing management plans with involved caregivers. Management plans discussed with involved personnels. Medical decision making was of moderate to high complexity, patient's has multiple comorbidities. Medications reviewed and adjusted accordingly: Yes
[2016-12-31] MEDS: SILVER SULFADIAZINE 1% CREAM 25 GM TP SCH (20:44)
[2016-12-31] MEDS ORDERED: BUMETANIDE INJ/PF 1 MG/4 ML SDV IV SCH (22:00)
[2016-12-31] MEDS ORDERED: INSULIN REG, HUMAN 100 UNIT/ML 3 ML VIAL (PYX) SUBCUT ONE (22:15)
[2016-12-31] MEDS: ATORVASTATIN CALCIUM 80 MG TABLET PO SCH (22:23)
[2016-12-31] MEDS: GABAPENTIN 100 MG CAPSULE PO SCH (22:24)
[2017-01-01 05:34] VITALS: BP 125/68
[2017-01-01] MEDS: ISOSORB DINIT/HYDRALAZINE HCL 20-37.5 MG TABLET PO SCH ×2 (05:39→15:28)
[2017-01-01] MEDS: HEPARIN SOD (PORCINE) 5,000 UNIT/ML 1 ML SYRINGE SUBCUT SCH ×2 (05:39→15:28)
[2017-01-01] MEDS: METOPROLOL TARTRATE 25 MG TABLET PO SCH (05:39)
[2017-01-01] MEDS: LANSOPRAZOLE 30 MG TAB.RAP.DR PO SCH (05:39)
[2017-01-01 05:44] LABS: ANION GAP 14 (5-19); BLOOD UREA NITROGEN 103 mg/dL (7-20); CALCIUM 9.6 mg/dL (8.4-10.2); CARBON DIOXIDE 27 mmol/L (22-30); CHLORIDE 94 mmol/L (98-107); CREATININE RESULT 4.07 mg/dL (0.52-1.25); GLUCOSE 307 mg/dL (75-110); POTASSIUM 4.3 mmol/L (3.6-5.0); SODIUM 134.8 mmol/L (137-145)
[2017-01-01 07:09] LABS: TRANSFERRIN 185 mg/dL (200-370)
[2017-01-01] MEDS: INSULIN REG, HUMAN 100 UNIT/ML 3 ML VIAL (PYX) SUBCUT PRN ×2 (07:38→11:57)
[2017-01-01] MEDS ORDERED: FERROUS SULFATE 325 MG TABLET PO SCH (10:00)
[2017-01-01] MEDS ORDERED: ASPIRIN 81 MG TABLET, ENT COATED PO SCH (10:00)
[2017-01-01] MEDS: DOCUSATE SODIUM 100 MG CAPSULE PO SCH (10:39)
[2017-01-01] MEDS: CLOPIDOGREL BISULFATE 75 MG TABLET PO SCH (10:39)
[2017-01-01] MEDS ORDERED: REGADENOSON INJ 0.4 MG/5 ML DISP.SYRIN IV ONE (11:52)
[2017-01-01] MEDS ORDERED: AMINOPHYLLINE INJ/PF 250 MG/10 ML SDV IV ONE (11:52)
[2017-01-01 12:21] LABS: HEMATOCRIT 30.7 % (37.9-51.0); HEMOGLOBIN 10.5 g/dL (13.5-17.0); HGB HCT DIFFERENCE 0.8; MEAN CORPUSCULAR HGB CONC 34.3 g/dL (32.0-36.0); MEAN CORPUSCULAR VOLUME 88 fl (80-97); RED BLOOD COUNT 3.51 10^6/uL (4.35-5.55); RED CELL DISTRIBUTION WIDTH 14.4 % (11.5-14.0)
[2017-01-01 12:41] LABS: BASOPHILS % (MANUAL) 0 % (0-2); EOSINOPHILS % (MANUAL) 0 % (0-6); LYMPHOCYTES % (MANUAL) 4 % (13-45); TOTAL CELLS COUNTED 100
[2017-01-01 12:45] LABS: ANISOCYTOSIS SLIGHT; OVALOCYTES SLIGHT; POIKILOCYTOSIS SLIGHT; POLYCHROMASIA SLIGHT; TARGET CELLS SLIGHT; TEAR DROP CELLS SLIGHT
--- NOTE | 2017-01-01 14:34 | PDOC PROGRESS REPORT ---
Subjective Progress Note for:: 01/01/17 Subjective:: Patient was doing well. He was sitting on the side of the bed about to be transported down for his stress test. He has no complaints of chest pain at the time. His SOB has resolved. Produced 1.7L of urine yesterday while on 1mg of bumex BID. Physical Exam Vital Signs: Temp Pulse Resp BP Pulse Ox 98.4 F 84 18 125/68 98 01/01/17 04:04 01/01/17 07:00 01/01/17 04:04 01/01/17 04:04 01/01/17 10:15 Pulse Oximeter Continuous Start: 12/29/16 17: 49 Freq: RTQ4 Status: Active Document 01/01/17 10:15 TPO (Rec: 01/01/17 10:18 TPO [email or web address]) Pulse Oximetry Assessment Oxygen Saturation (92-100) 98 Oxygen Flow Rate (L/min) 1 Oxygen Delivery Method Nasal Cannula Fraction of Inspired Oxygen (FIO2) 24 Equipment Usage Equipment in Use Continuous SpO2 Machine # 7 Intake & Output 12/31/16 01/01/17 01/02/17 06:59 06:59 06:59 Intake Total 1277 1625 Output Total 2940 1690 Balance -1663 -65 Weight 93.1 kg 92.7 kg General appearance: PRESENT: no acute distress, well-developed, well-nourished Head exam: PRESENT: atraumatic, normocephalic Mouth exam: PRESENT: moist, tongue midline Neck exam: PRESENT: full ROM. ABSENT: JVD, tracheal deviation Respiratory exam: PRESENT: clear to auscultation gabriel. ABSENT: accessory muscle use, crackles, rhonchi Cardiovascular exam: PRESENT: RRR, +S1, +S2 GI/Abdominal exam: PRESENT: normal bowel sounds, soft. ABSENT: diminished bowel sounds, organomegaly, tenderness Extremities exam: PRESENT: tenderness - left rose. ABSENT: pedal edema Neurological exam: PRESENT: alert, awake, oriented to person, oriented to place , oriented to time, oriented to situation Psychiatric exam: PRESENT: appropriate affect, normal mood Skin exam: PRESENT: dry, warm Results Laboratory Results: 12/30/16 07:28 01/01/17 05:18 12/31/16 12/31/16 01/01/17 04:11 04:11 05:18 Sodium 134.8 L Potassium 4.3 Chloride 94 L Carbon Dioxide 27 Anion Gap 14 BUN 103 H Creatinine 4.07 H Est GFR ( Amer) 17 L Est GFR (Non-Af Amer) 14 L Glucose 307 H Calcium 9.6 Transferrin 185 L PTH Intact 436 H 12/29/16 12/29/16 12/30/16 19:23 19:23 01:24 Creatine Kinase 2012 H 1326 H CK-MB (CK-2) 8.54 H Troponin I 0.114 12/30/16 12/30/16 12/30/16 01:24 07:28 07:28 Creatine Kinase 1170 H CK-MB (CK-2) 6.70 H 4.98 H Troponin I 0.103 0.110 12/30/16 12/30/16 12/31/16 17:50 17:50 00:03 Creatine Kinase 1152 H 1258 H CK-MB (CK-2) 4.80 H Troponin I 0.091 12/31/16 12/31/16 12/31/16 00:03 04:11 04:11 Creatine Kinase 1200 H CK-MB (CK-2) 4.74 H 4.11 Troponin I 0.085 0.094 Impressions: Chest X-Ray 12/30/16 00:00 IMPRESSION: Stable cardiomegaly, pulmonary vascular prominence. Very mild interstitial edema Knee X-Ray 12/31/16 00:00 IMPRESSION: Suprapatellar knee joint effusion. No acute fracture or malalignment Assessment & Plan - Diagnosis (1) Congestive heart failure Qualifiers: Congestive heart failure type: systolic Congestive heart failure chronicity : acute Qualified Code(s): I50.21 - Acute systolic (congestive) heart failure Is this a current diagnosis for this admission?: Yes Plan: Resolved, holding bumex and metolazone (2) Ischemic cardiomyopathy Is this a current diagnosis for this admission?: Yes Plan: getting stress test today (3) Anemia of chronic disease Is this a current diagnosis for this admission?: Yes Plan: Looks to have improved to 10.5 from 9.8. Will continue current route of treatment with anemia. (4) Essential hypertension Is this a current diagnosis for this admission?: Yes Plan: controlled (5) Chronic renal failure, stage 4 (severe) Is this a current diagnosis for this admission?: Yes Plan: creatinine is still elevating, will hold diuretics for a day. 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
--- NOTE | 2017-01-01 15:24 | DRAGON STRESS TEST REPORT ---
INTRAVENOUS LEXISCAN CARDIOLITE STRESS TEST USING SINGLE PHOTON EMMISION COMPUTERIZED TOMOGRAPHIC. DATE OF PROCEDURE: January 01, 2017 INDICATION : Chest pain CARDIAC RISK FACTORS: Diabetes, hypertension, dyslipidemia RESTING EKG: Sinus rhythm, LVH with secondary ST-T wave changes STRESS EKG: No significant changes noted with LexiScan bolus REASON FOR TERMINATION: Protocol. PROCEDURE REPORT: Baseline heart rate 73 beats per minute with blood pressure of 114/70. Patient had no significant complaints. Heart rate at 2 minutes post bolus 80 with a blood pressure of 114/66 3 minutes post bolus heart rate 77 with blood pressure of 112/63. No significant EKG changes were noted. Patient had no significant complaints during the procedure or postprocedure. Patient injected with Aminophyllin 75 mg at 3 minutes or later after Lexiscan bolus. CONCLUSIONS: Normal EKG and hemodynamic response to IV LexiScan. NUCLEAR DATA: At rest the patient was given 14.49 millicuries of technetium 99 sestamibi injected intravenously. As per protocol rest gated SPECT images were obtained. Subsequently the patient was given intravenous LexiScan at a dose of 0.4 mg in 5 mL intravenously, followed by flush with normal saline. Subsequently the stress dose of 40.3 millicuries of technetium 99 sestamibi was injected intravenously. As per protocol stress gated images were obtained. NUCLEAR INTERPRETATION: Both raw and processed data were used for interpretation. Visual, qualitative, computer-generated quantitative data was used. There was good myocardial uptake of technetium compound. Motion artifact and soft tissue attenuations were noted. Increased visceral uptake was noted. No definitive areas of transient perfusion defect noted. Severe fixed perfusion defect or scars noted involving the mid inferior and basal inferior wall. EKG gated imaging showed LV EF at 29 %, rest and stress gated EF similar visually. Inferior wall hypokinesia noted. T. I D. ratio was 1.03. Lung heart ratio noted to be within normal limits 0.43. No significant extracardiac and abnormal radiotracer activities were noted. RV free wall uptake was noted to be increased. IMPRESSION: Also refer to comments under nuclear interpretation. Also test results needs to be interpreted in the context of pretest probability. 1. There is no definitive scintigraphic evidence of LexiScan induced myocardial ischemia. 2. Basal and mid inferior wall severe fixed defect indicative of prior myocardial infarction/scar. 3. EKG gated imaging shows left ventricular ejection fraction of approximately 29% with basal and mid inferior wall hypokinesia. 4. Clinical correlation requested as occasionally worse disease or balanced ischemia could be missed. In approximately 10% of the cases Lexiscan may not cause adequate vasodilatory stress. RECOMMENDATIONS: Aggressive risk factor modification, medical therapy. Clinical correlation with echocardiogram derived ejection fraction. Inability to exercise by itself can lead to increased cardiovascular event risks. Consider cardiology consultation and or follow-up if clinically indicated. I AM AVAILABLE FOR CARDIOLOGY CONSULTATION AND FOLLOWUP IF REQUESTED BY PMD Vani Suero M.D., TAMIKA Senior Librarian tax expert, Board certified in cardiovascular diseases, Nuclear cardiology, Echocardiography Cardiac CT and cardiac MRI Ph. [phone] [facility]
[2017-01-01 15:38] LABS: A/G RATIO 1.2 (0.7-1.7); ALBUMIN 2 3.6 g/dL (2.9-4.4); ALPHA-1-GLOBULIN 2 0.2 g/dL (0.0-0.4); PROTEIN TOTAL SERUM 6.7 g/dL (6.0-8.5)
--- NOTE | 2017-01-01 15:54 | PDOC DISCHARGE SUMMARY ---
General - Admit/Disc Date/PCP Admission Date/Primary Care Provider: 12/29/16 17:47 KRISTIN STEPHENS NP Discharge Date: 01/01/17 - Discharge Diagnosis (1) Congestive heart failure Is this a current diagnosis for this admission?: Yes (2) Anemia of chronic disease Is this a current diagnosis for this admission?: Yes (3) Chronic renal failure, stage 4 (severe) Is this a current diagnosis for this admission?: Yes (4) Thrombocytopenia Is this a current diagnosis for this admission?: Yes (5) CAD (coronary artery disease), [place] coronary artery Is this a current diagnosis for this admission?: Yes (6) COPD (chronic obstructive pulmonary disease) Is this a current diagnosis for this admission?: Yes (7) Diabetes Is this a current diagnosis for this admission?: Yes (8) Open leg wound Is this a current diagnosis for this admission?: Yes (9) Peripheral vascular disease Is this a current diagnosis for this admission?: Yes (10) GERD (gastroesophageal reflux disease) Is this a current diagnosis for this admission?: Yes (11) Essential hypertension Is this a current diagnosis for this admission?: Yes (12) Hyperlipidemia Is this a current diagnosis for this admission?: Yes (13) Pulmonary hypertension Is this a current diagnosis for this admission?: Yes (14) Ischemic cardiomyopathy Is this a current diagnosis for this admission?: Yes (15) Valvular heart disease Is this a current diagnosis for this admission?: Yes - Additional Information Resuscitation Status: Full Code Discharge Diet: Cardiac - low fat, Diabetic - low salt Discharge Activity: Activity As Tolerated, Balance Activity w/Rest, Weigh Daily Home Medications: Aspirin [Aspirin EC] 81 mg PO DAILY 12/29/16 Atorvastatin Calcium [Lipitor 80 mg Tablet] 80 mg PO QHS 12/29/16 Clopidogrel Bisulfate [Plavix 75 mg Tablet] 75 mg PO DAILY 12/29/16 Ergocalciferol (Vitamin D2) [Vitamin D2] 50,000 units PO MO@1000 12/29/16 Gabapentin [Neurontin 100 mg Capsule] 100 mg PO QHS 12/29/16 Insulin Glargine,Hum.rec.anlog [Lantus Solostar] 40 units SQ QHS 12/29/16 Insulin Lispro [Humalog] See Protocol SQ ACHSP PRN 12/29/16 Isosorb Dinit/Hydralazine HCl [Bidil 20-37.5 mg Tablet] 1 tab PO Q12 12/29/16 Metoprolol Succinate [Toprol Xl 50 mg Tab.sr] 50 mg PO Q12 12/29/16 Tamsulosin HCl [Flomax 0.4 mg Cap.sr] 0.4 mg PO PCBRKFST 12/29/16 Warfarin Sodium [Coumadin 5 mg Tablet] 5 mg PO DAILY 12/29/16 Bumetanide [Bumex 1 mg Tablet] 1 mg PO BID #60 tablet 01/01/17 Metolazone [Zaroxolyn 5 mg Tablet] 5 mg PO DAILY #30 tablet 01/01/17 Silver Sulfadiazine [Silvadene 1% Cream 25 gm] 1 applic TP DAILY@1999 #2 tube Additional Information: PT/INR check in 3 days with primary physician. Basic metabolic panel in 1 week with primary physician. History of Present Illness Patient complains of: Shortness of breath History of Present Illness: LATASHA BARLOW is a 76 year old male with history of, chronic kidney disease stage IV COPD, ischemic cardiomyopathy, pulmonary hypertension, and valvular heart disease presents to the hospital with shortness of breath of 2 days' duration. There is associated 3 pillow orthopnea and paroxysmal nocturnal dyspnea. Patient also noted increasing swelling on both lower extremities. He had a chest pain yesterday but it is precordial. He had episodes of nausea but no vomiting associated. There is no palpitation. Patient somehow felt lightheaded earlier this morning. No chills or fever, sinus congestion, sore throat, nor pleurisy. The patient went to the emergency room for evaluation. Chest x-ray revealed pulmonary vascular congestion. Creatinine of 3.68 with increasing BUN of 90. The patient was given oxygen and diuretics and was referred for admission. Hospital Course Hospital Course: The patient was admitted to [facility]. The patient was started on intravenous Bumex and Zaroxolyn orally. Cardiac enzymes were obtained and they were mildly abnormal. Cardiology was consulted. Nephrology was consulted for the renal failure. 2D echocardiogram revealed an ejection fraction of about 45%. With Bumex and Zaroxolyn in the patient's shortness of breath and edema significantly improved. Patient's shortness of breath has resolved. His course was noted for his leg wounds treated with Silvadene cream as well as wet- to-dry dressings and it has improved. Home health was therefore consulted to continue wound care on discharge. In terms of the patient's creatinine nephrology titrated the patient's Zaroxolyn and Bumex dose. The patient continues to improve daily. Eventually a stress test was performed showing fixed defect with no reversible ischemia. Cardiology recommended medical management. The rest of the hospital stay was essentially unremarkable. Physical Exam Vital Signs: Temp Pulse Resp BP Pulse Ox 98.4 F 84 18 125/68 96 01/01/17 04:04 01/01/17 07:00 01/01/17 04:04 01/01/17 04:04 01/01/17 11:47 Pulse Oximeter Continuous Start: 12/29/16 17: 49 Freq: RTQ4 Status: Active Document 01/01/17 11:47 TPO (Rec: 01/01/17 11:48 TPO [email or web address]) Pulse Oximetry Assessment Oxygen Saturation (92-100) 96 Oxygen Flow Rate (L/min) 1 Oxygen Delivery Method Nasal Cannula Fraction of Inspired Oxygen (FIO2) 24 Equipment Usage Equipment in Use Continuous SpO2 Machine # 7 Intake & Output 12/31/16 01/01/17 01/02/17 06:59 06:59 06:59 Intake Total 1277 1625 Output Total 2940 1690 Balance -1663 -65 Weight 93.1 kg 92.7 kg General appearance: PRESENT: no acute distress, cooperative Head exam: PRESENT: normocephalic Eye exam: PRESENT: EOMI Mouth exam: PRESENT: moist, neck supple Neck exam: ABSENT: JVD Respiratory exam: PRESENT: clear to auscultation gabriel Cardiovascular exam: PRESENT: RRR. ABSENT: gallop GI/Abdominal exam: PRESENT: soft. ABSENT: distended, tenderness Extremities exam: PRESENT: +1 edema, other - Wounds clean and dry, no purulent drainage. Neurological exam: PRESENT: alert, awake, oriented to situation Skin exam: PRESENT: dry, warm. ABSENT: cyanosis Results Laboratory Results: 01/01/17 05:18 01/01/17 05:18 12/31/16 12/31/16 01/01/17 04:11 04:11 05:18 WBC RBC Hgb Hct MCV MCH MCHC RDW Plt Count Seg Neutrophils % Lymphocytes % Monocytes % Eosinophils % Basophils % Absolute Neutrophils Absolute Lymphocytes Absolute Monocytes Absolute Eosinophils Absolute Basophils Sodium 134.8 L Potassium 4.3 Chloride 94 L Carbon Dioxide 27 Anion Gap 14 BUN 103 H Creatinine 4.07 H Est GFR ( Amer) 17 L Est GFR (Non-Af Amer) 14 L Glucose 307 H Calcium 9.6 Transferrin 185 L PTH Intact 436 H 01/01/17 05:18 WBC 9.0 RBC 3.51 L Hgb 10.5 L Hct 30.7 L MCV 88 MCH 30.0 MCHC 34.3 RDW 14.4 H Plt Count 183 Seg Neutrophils % Not Reportable Lymphocytes % Not Reportable Monocytes % Not Reportable Eosinophils % Not Reportable Basophils % Not Reportable Absolute Neutrophils Not Reportable Absolute Lymphocytes Not Reportable Absolute Monocytes Not Reportable Absolute Eosinophils Not Reportable Absolute Basophils Not Reportable Sodium Potassium Chloride Carbon Dioxide Anion Gap BUN Creatinine Est GFR ( Amer) Est GFR (Non-Af Amer) Glucose Calcium Transferrin PTH Intact 12/29/16 12/29/16 12/30/16 19:23 19:23 01:24 Creatine Kinase 2012 H 1326 H CK-MB (CK-2) 8.54 H Troponin I 0.114 12/30/16 12/30/16 12/30/16 01:24 07:28 07:28 Creatine Kinase 1170 H CK-MB (CK-2) 6.70 H 4.98 H Troponin I 0.103 0.110 12/30/16 12/30/16 12/31/16 17:50 17:50 00:03 Creatine Kinase 1152 H 1258 H CK-MB (CK-2) 4.80 H Troponin I 0.091 12/31/16 12/31/16 12/31/16 00:03 04:11 04:11 Creatine Kinase 1200 H CK-MB (CK-2) 4.74 H 4.11 Troponin I 0.085 0.094 Impressions: Chest X-Ray 12/30/16 00:00 IMPRESSION: Stable cardiomegaly, pulmonary vascular prominence. Very mild interstitial edema Knee X-Ray 12/31/16 00:00 IMPRESSION: Suprapatellar knee joint effusion. No acute fracture or malalignment Qualifiers PATEINT BEING DISCHARGED WITH ANY OF THE FOLLOWING DIAGNOSIS?: Heart Failure HF Pt being discharged on ACEI for LVEF less than 40%?: No Reason(s) for not prescribing ACEI:: Contraindicated - renal failure HF Pt being discharged on ARBS for LVEF less than 40%?: No Reason(s) for not prescribing ARBS:: Contraindicated - heart failure HF Pt with Afib discharged with Warfarin?: Yes HF Pt discharged on evidence-based Beta Jayjay:: Yes Plan Discharge Plan: Follow up w/ primary physician in 1 week. Follow up w/ Dr. Mercedes in [address] Seuro in 1 week. Time Spent: Less than 30 Minutes
--- NOTE | 2017-01-01 21:23 | PDOC PROGRESS REPORT ---
Subjective Progress Note for:: 01/01/17 Subjective:: Patient seems to be doing better with gradual improvement. Chest pain seems to have improved.. Patient denying any PND, orthopnea. Patient denied any sustained palpitations, dizziness, syncope, near syncope. Patient denying any fever chills. Patient denying any other significant discomfort. Patient is maintaining sinus rhythm. 2D echo results were reviewed. Patient given results. Nuclear stress test procedure, risk benefits were again discussed. Return on the results of nuclear stress test discussed. Review of systems: Rest review of systems negative. Medications: Medications have been reviewed. Physical Exam Vital Signs: Temp Pulse Resp BP Pulse Ox 98.4 F 84 18 125/68 96 01/01/17 04:04 01/01/17 07:00 01/01/17 04:04 01/01/17 04:04 01/01/17 11:47 Pulse Oximeter Continuous Start: 12/29/16 17: 49 Freq: RTQ4 Status: Active Document 01/01/17 11:47 TPO (Rec: 01/01/17 11:48 TPO [email or web address]) Pulse Oximetry Assessment Oxygen Saturation (92-100) 96 Oxygen Flow Rate (L/min) 1 Oxygen Delivery Method Nasal Cannula Fraction of Inspired Oxygen (FIO2) 24 Equipment Usage Equipment in Use Continuous SpO2 Machine # 7 Intake & Output 12/31/16 01/01/17 01/02/17 06:59 06:59 06:59 Intake Total 1277 1625 Output Total 2940 1690 Balance -1663 -65 Weight 93.1 kg 92.7 kg Exam: GENERAL: well-nourished and in no acute distress. Alert and oriented x3 HEAD: Atraumatic, normocephalic. EYES: Pupils equal round and reactive to light, extraocular movements intact, sclera anicteric, conjunctiva are normal. ENT: TMs normal, nares patent, oropharynx clear without exudates. Moist mucous membranes. No oral ulcerations or bleeding gums noted NECK: supple without lymphadenopathy. Trachea is central. No cervical or axillary lymphadenopathy noted. Carotids are 2+, JVD WNL LUNGS: Respiration seems nonlabored, no significant accessory muscle action noted. Breath sounds clear to auscultation bilaterally and equal noted. No wheezes rales or rhonchi noted. No significant dullness noted on percussion. CHEST: Palpation of the chest wall shows left-sided chest wall tenderness. No other significant abnormalities noted. Chest wall tenderness is noted. HEART: [place] BLOOD COORDINATOR, No PSH, 1/6 JAMES aortic area, 1/6 guido systolic murmur mitral area, no rubs, no gallops. ABDOMEN: Soft, no significant tenderness appreciated, normoactive bowel sounds. No guarding, no rebound. No rigidity noted . No masses appreciated. EXTREMITIES: Pedal pulses are 1-2+, no calf tenderness noted. No clubbing or cyanosis.trace pedal edema noted NEUROLOGICAL: Focused neurological exam showed no significant neurologic deficit. Normal speech, no focal weakness appreciated. PSYCH: Normal mood, normal affect. Judgment and insight within normal limits. SKIN: No significant ecchymosis, rash, superficial ulceration noted both rose area. These are covered with bandages. MUSCULOSKELETAL EXAM: No significant joint swelling noted. Results Laboratory Results: 01/01/17 05:18 12/31/16 12/31/16 01/01/17 04:11 04:11 05:18 Sodium 134.8 L Potassium 4.3 Chloride 94 L Carbon Dioxide 27 Anion Gap 14 BUN 103 H Creatinine 4.07 H Est GFR ( Amer) 17 L Est GFR (Non-Af Amer) 14 L Glucose 307 H Calcium 9.6 Transferrin 185 L PTH Intact 436 H 12/29/16 12/29/16 12/30/16 19:23 19:23 01:24 Creatine Kinase 2012 H 1326 H CK-MB (CK-2) 8.54 H Troponin I 0.114 12/30/16 12/30/16 12/30/16 01:24 07:28 07:28 Creatine Kinase 1170 H CK-MB (CK-2) 6.70 H 4.98 H Troponin I 0.103 0.110 12/30/16 12/30/16 12/31/16 17:50 17:50 00:03 Creatine Kinase 1152 H 1258 H CK-MB (CK-2) 4.80 H Troponin I 0.091 12/31/16 12/31/16 12/31/16 00:03 04:11 04:11 Creatine Kinase 1200 H CK-MB (CK-2) 4.74 H 4.11 Troponin I 0.085 0.094 Impressions: Chest X-Ray 12/30/16 00:00 IMPRESSION: Stable cardiomegaly, pulmonary vascular prominence. Very mild interstitial edema Knee X-Ray 12/31/16 00:00 IMPRESSION: Suprapatellar knee joint effusion. No acute fracture or malalignment Assessment & Plan - Diagnosis (1) Chest pain Qualifiers: Chest pain type: unspecified Qualified Code(s): R07.9 - Chest pain, unspecified Is this a current diagnosis for this admission?: Yes (2) Elevated troponin I level Is this a current diagnosis for this admission?: Yes (3) Congestive heart failure Qualifiers: Congestive heart failure type: systolic Congestive heart failure chronicity : acute Qualified Code(s): I50.21 - Acute systolic (congestive) heart failure Is this a current diagnosis for this admission?: Yes (4) Essential hypertension Is this a current diagnosis for this admission?: Yes (5) Hyperlipidemia Qualifiers: Hyperlipidemia type: unspecified Qualified Code(s): E78.5 - Hyperlipidemia , unspecified Is this a current diagnosis for this admission?: Yes (6) Ischemic cardiomyopathy Is this a current diagnosis for this admission?: Yes (7) CAD (coronary artery disease), [place] coronary artery Qualifiers: [place] vs. transplanted heart: [place] heart Associated angina: angina presence unspecified Qualified Code(s): I25.10 - Atherosclerotic heart disease of [place] coronary artery without angina pectoris Is this a current diagnosis for this admission?: Yes (8) Chronic renal failure, stage 4 (severe) Is this a current diagnosis for this admission?: Yes (9) Diabetes Qualifiers: Diabetes mellitus type: type 2 Diabetes mellitus complication status: with unspecified complications Diabetes mellitus terminal gauger insulin use: with nursing home use Qualified Code(s): E11.8 - Type 2 diabetes mellitus with unspecified complications Is this a current diagnosis for this admission?: Yes - Notes Notes: 2D echo reviewed. It showed mildly depressed LVEF at 45%. Nuclear stress test results were discussed with the patient. Patient being advised medical therapy based on stress test results. Patient informed that he would benefit from cardiology consultation and continued follow-up. Patient was seen multiple times today. This included explaining stress test in detail in the morning. Then seeing patient immediately after stress test and then in the afternoon to discuss all the results. Chest pain: Sounds atypical probably musculoskeletal. Patient does have significant cardiac risk factors, known CAD. Nuclear stress test results reviewed. No areas of ischemia noted but fixed defect noted. Elevated troponin I: This is in the indeterminate range and possibly related to CHF, chronic kidney disease etc. 2D echo results reviewed. Nuclear stress test results were reviewed with the patient. Patient questions answered. Congestive heart failure: JVP is now not elevated. Continue diuretic therapy. Seems compensated on clinical exam. Hyperlipidemia: LDL goal is less than 70. Recommend statin therapy at least intermediate or high dose, of high potency status. Periodic lipid panel and liver panel is indicated. Patient to report any significant muscle discomfort or other side effects. CAD: Will optimize medical therapy. This can be further optimized as an outpatient. Currently stable. Methods to reduce progression of chronic kidney disease discussed. This would include good control of blood pressure, diabetes, treatment of sleep apnea if present, weight loss etc. Also discussed avoiding nephrotoxic drugs and medication, IVP dye etc. certain blood pressure medications such as LEELEE inhibitor, ARB can also reduce progression of chronic kidney disease. May consider dialysis. Diabetes: Recommend good control of blood sugar. However should avoid any hypoglycemia. Patient being expertly managed by primary care MAbilio. Patient gives history of snoring therefore may have underlying sleep apnea syndrome. Patient will benefit from sleep study. Rationale for scheduling a sleep study was discussed. - Time Time with patient: Greater than 35 minutes - CODE STATUS was discussed, patient remains full code. Surrogate decision-maker unchanged. Multiple medical problems were addressed. More than 50% of the time spent coordinating care, discussing management plans with involved caregivers. Management plans discussed with involved personnels. Medical decision making was of moderate to high complexity, patient's has multiple comorbidities. Patient was seen multiple time and results of cardiac evaluation and other management plans discussed. Total time exceeded 40 minutes. Medications reviewed and adjusted accordingly: Yes
--- NOTE | 2017-01-08 09:55 | XCELERA REPORT ---
[address] [address] Transthoracic Echocardiogram Report Name: LATASHA BARLOW Age: 76 yrs Gender: Male : 1940 Patient Status: Inpatient Patient Location: [address] [place] [address] Study Date: 12/31/2016 10:16 AM Height: 67 in Weight: 212 lb BSA: 2.1 m2 Procedure: A complete two-dimensional transthoracic echocardiogram was performed (2D, M-mode, spectral and color flow Doppler). The study was technically difficult with many images being suboptimal in quality. Reason For Study: Chest pain Ordering Physician: VANI BURDEN Performed By: Valentina Agustin Interpretation Summary LV EF is 45% Left ventricular systolic function is mild to moderately reduced. There is borderline concentric left ventricular hypertrophy. The left ventricle is grossly normal size. Doppler measurements suggest pseudonormalized left ventricular relaxation, which is associated with grade II/IV or mild to moderate diastolic dysfunction Wall motion cannot be accurately commented on, but no definite regional wall motion abnormalities noted. The right ventricle is borderline dilated. The right ventricular systolic function is normal. The right atrium is mildly dilated. The left atrium is mildly dilated. There is a mild to moderate amount of mitral regurgitation There is no mitral valve stenosis. No aortic regurgitation is present. There is no aortic valve stenosis There is a mild amount of tricuspid regurgitation There is moderate pulmonary hypertension by echo Right ventricular systolic pressure is estimated to be elevated at 40- 50mmHg. The aortic root is not well visualized but is probably normal size. The inferior vena cava appeared dilated and decreased < 50% with respiration (RAP 15-20 mmHg) Minimal pericardial effusion. MMode/2D Measurements & Calculations RVDd: 3.6 cm LVIDd: 5.5 cm FS: 17.0 % Ao root diam: IVSd: 0.88 cm LVIDs: 4.6 cm EDV(Teich): 3.3 cm LVPWd: 0.93 cm 146.3 ml Ao root area: ESV(Teich): 95.0 ml 8.7 cm2 EF(Teich): 35.1 % LA dimension: 4.0 cm LVOT diam: LVLd ap4: 8.6 cm SV(MOD-sp4): 2.0 cm EDV(MOD-sp4): 39.0 ml LVOT area: 100.0 ml LVLs ap4: 7.9 cm 3.1 cm2 ESV(MOD-sp4): 61.0 ml EF(MOD-sp4): 39.0 % Doppler Measurements & Calculations MV E max heriberto: MV P1/2t max heriberto: Ao V2 max: LV V1 max P.7 cm/sec 100.7 cm/sec 114.0 cm/sec 2.0 mmHg MV A max heriberto: MV P1/2t: 43.6 msec Ao max PG: LV V1 max: 27.1 cm/sec MVA(P1/2t): 5.0 cm2 5.2 mmHg 70.6 cm/sec MV E/A: 3.7 MV dec slope: ANDREW(V,D): 1.9 cm2 677.0 cm/sec2 PA V2 max: TR max heriberto: 77.5 cm/sec 287.8 cm/sec PA max P.4 mmHgTR max P.9 mmHg Left Ventricle The left ventricle is grossly normal size. There is borderline concentric left ventricular hypertrophy. Left ventricular systolic function is mild to moderately reduced. LV EF is 45%. Doppler measurements suggest pseudonormalized left ventricular relaxation, which is associated with grade II/IV or mild to moderate diastolic dysfunction. Wall motion cannot be accurately commented on, but no definite regional wall motion abnormalities noted. Right Ventricle The right ventricle is borderline dilated. There is normal right ventricular wall thickness. The right ventricular systolic function is normal. Atria The right atrium is mildly dilated. The left atrium is mildly dilated. Interarterial septum not well visualized and not well dopplered. Cannot comment on ASD/PFO presence. Mitral Valve There is mild to moderate mitral annular calcification. There is no mitral valve stenosis. There is a mild to moderate amount of mitral regurgitation. Aortic Valve The aortic valve is mildly calcified. There is no aortic valve stenosis. No aortic regurgitation is present. Tricuspid Valve The tricuspid valve is not well visualized, but is grossly normal. There is no tricuspid stenosis. There is a mild amount of tricuspid regurgitation. There is moderate pulmonary hypertension by echo. Right ventricular systolic pressure is estimated to be elevated at 40-50mmHg. Pulmonic Valve The pulmonic valve is not well visualized. Great Vessels The aortic root is not well visualized but is probably normal size. The inferior vena cava appeared dilated and decreased < 50% with respiration (RAP 15-20 mmHg). Effusions Minimal pericardial effusion. : VANI BURDEN > Vani Burden
--- NOTE | 2017-01-13 07:52 | Progress Note ---
Provider Note Provider Note: Addendum to diagnises: Bilateral lower extremity wounds probably from chronic venous stasis
== END 2017-01-01 17:30 | disposition home health service (06) | DRG 291 ==
LOC: ER 14:11 → EH 17:43 → UNDOADMIN 17:43 → EH 17:47 → 3W 18:55
DX: I13.0 Hypertensive heart and chronic kidney disease with heart failure and stage 1 through stage 4 chronic kidney disease, or unspecified chronic kidney disease (principal); I50.23 Acute on chronic systolic (congestive) heart failure; N18.4 Chronic kidney disease, stage 4 (severe); L97.821 Non-pressure chronic ulcer of other part of left lower leg limited to breakdown of skin; L97.811 Non-pressure chronic ulcer of other part of right lower leg limited to breakdown of skin; E11.622 Type 2 diabetes mellitus with other skin ulcer; I25.10 Atherosclerotic heart disease of native coronary artery without angina pectoris; I83.028 Varicose veins of left lower extremity with ulcer other part of lower leg; I25.2 Old myocardial infarction; K21.9 Gastro-esophageal reflux disease without esophagitis; M19.90 Unspecified osteoarthritis, unspecified site; N40.0 Benign prostatic hyperplasia without lower urinary tract symptoms; E11.22 Type 2 diabetes mellitus with diabetic chronic kidney disease; E78.5 Hyperlipidemia, unspecified; I25.5 Ischemic cardiomyopathy; E11.51 Type 2 diabetes mellitus with diabetic peripheral angiopathy without gangrene; I27.2 Other secondary pulmonary hypertension; D63.8 Anemia in other chronic diseases classified elsewhere; D69.6 Thrombocytopenia, unspecified; Z95.5 Presence of coronary angioplasty implant and graft; Z79.82 Long term (current) use of aspirin; Z79.899 Other long term (current) drug therapy; Z79.4 Long term (current) use of insulin; Z88.6 Allergy status to analgesic agent; Z88.0 Allergy status to penicillin; Z95.0 Presence of cardiac pacemaker
CPT/HCPCS: 36415; 71010; 71020; 78452; 80048; 80053; 80162; 82550; 82553; 82607; 82728; 82746; 82962; 83036; 83540; 83550; 83690; 83735; 83880; 83970; 84100; 84165; 84439; 84443; 84466; 84484; 85025; 85045; 85610; 85730; 87040; 93005; 93010; 93017; 93306; 94762; 96374; 99285; A9500; G8978-GP; G8979-GP; J0280; J1644; J1815; J2785; J3490; J7512; Q9969

== ENCOUNTER → 2017-01-11 | Outpatient (CLI) | payer MEDICARE, OTHER ==
[2017-01-11 11:32] LABS: HEMOGLOBIN 10.9 g/dL (13.5-17.0); HGB HCT DIFFERENCE 1.7; MEAN CORPUSCULAR HEMOGLOBIN 29.5 pg (27.0-33.4); MEAN CORPUSCULAR HGB CONC 35.1 g/dL (32.0-36.0); RED BLOOD COUNT 3.69 10^6/uL (4.35-5.55); RED CELL DISTRIBUTION WIDTH 14.9 % (11.5-14.0)
[2017-01-11 11:44] LABS: MEAN CORPUSCULAR VOLUME 84 fl (80-97)
[2017-01-11 12:12] LABS: ALANINE AMINOTRANSFERASE 43 U/L (21-72); ALBUMIN 4.3 g/dL (3.5-5.0); ALKALINE PHOSPHATASE 98 U/L (38-126); ANION GAP 19 (5-19); ASPARTATE AMINO TRANSFERASE 36 U/L (17-59); BILIRUBIN,DIRECT 0.4 mg/dL (0.0-0.4); BILIRUBIN,TOTAL 0.4 mg/dL (0.2-1.3); CALCIUM 10.6 mg/dL (8.4-10.2); CARBON DIOXIDE 24 mmol/L (22-30); CHLORIDE 96 mmol/L (98-107); CHOLESTEROL 197.28 mg/dL (0-200); CREATININE RESULT 4.91 mg/dL (0.52-1.25); Direct HDL 65 mg/dL (>40); GLUCOSE 58 mg/dL (75-110); POTASSIUM 3.6 mmol/L (3.6-5.0); SODIUM 138.7 mmol/L (137-145); TOTAL PROTEIN 7.5 g/dL (6.3-8.2); TRIGLYCERIDES 92 mg/dL (<150)
[2017-01-11 12:23] LABS: DIRECT LDL 83 mg/dL (<100)
[2017-01-11 12:39] LABS: BLOOD UREA NITROGEN 173 mg/dL (7-20)
[2017-01-11 12:57] LABS: ANION GAP 19 (5-19); CALCIUM 10.6 mg/dL (8.4-10.2); CARBON DIOXIDE 24 mmol/L (22-30); CHLORIDE 96 mmol/L (98-107); CREATININE RESULT 4.91 mg/dL (0.52-1.25); GLUCOSE 58 mg/dL (75-110); POTASSIUM 3.6 mmol/L (3.6-5.0); SODIUM 138.7 mmol/L (137-145)
[2017-01-11 12:58] LABS: BLOOD UREA NITROGEN 173 mg/dL (7-20)
== END ==
LOC: OD 10:14
PROVIDERS: ATTEND Physician Assistant
DX: E11.22 Type 2 diabetes mellitus with diabetic chronic kidney disease (principal); I13.0 Hypertensive heart and chronic kidney disease with heart failure and stage 1 through stage 4 chronic kidney disease, or unspecified chronic kidney disease; N18.4 Chronic kidney disease, stage 4 (severe); I50.22 Chronic systolic (congestive) heart failure; I25.5 Ischemic cardiomyopathy
CPT/HCPCS: 36415; 80048; 80061; 80076; 82728; 83540; 83550; 83735; 83880; 83970; 84100; 85027

== ENCOUNTER → 2017-01-14 | Outpatient (CLI) | payer MEDICARE, OTHER ==
--- NOTE | 2017-01-14 11:48 | RADIOLOGY REPORT (SQ) ---
EXAM DESCRIPTION: CHEST PA/LATERAL COMPLETED DATE/TIME: 01/14/2017 11:38 am REASON FOR STUDY: HEART FAILURE, UNSPECIFIED COMPARISON: 12/30/2016 EXAM PARAMETERS: NUMBER OF VIEWS: two views TECHNIQUE: Digital Frontal and Lateral radiographic views of the chest acquired. RADIATION DOSE: NA LIMITATIONS: none FINDINGS: LUNGS AND PLEURA: No opacities, masses or pneumothorax. No pleural effusion. MEDIASTINUM AND HILAR STRUCTURES: No masses or contour abnormalities. HEART AND VASCULAR STRUCTURES: Heart size is stable. No failure. BONES: No acute findings. HARDWARE: Battery pack and leads remain in place. OTHER: No other significant finding. IMPRESSION: NO SIGNIFICANT RADIOGRAPHIC FINDING IN THE CHEST. TECHNICAL DOCUMENTATION: JOB ID: [id number] [employer]- All Rights Reserved
== END ==
LOC: OD 11:24
PROVIDERS: ATTEND Internal Medicine Nephrology
DX: I50.9 Heart failure, unspecified (principal); N18.4 Chronic kidney disease, stage 4 (severe)
CPT/HCPCS: 71020

== ENCOUNTER → 2017-01-20 | Outpatient (CLI) | payer MEDICARE, OTHER ==
--- NOTE | 2017-01-20 16:11 | RADIOLOGY REPORT (SQ) ---
EXAM DESCRIPTION: U/S RETROPERITON (RENAL/AORTA) COMPLETED DATE/TIME: 01/20/2017 3:09 pm REASON FOR STUDY: CKD STAGE 4 (SEVERE) N18.4 CHRONIC KIDNEY DISEASE, STAGE 4 (SEVERE) I50.9 HEART FAILURE, UNSPECIFIED COMPARISON: None. TECHNIQUE: Dynamic and static grayscale images acquired of the kidneys and bladder and recorded on P ACS. Additional selected color Doppler and spectral images recorded. LIMITATIONS: None. FINDINGS: RIGHT KIDNEY: 9.9 cm. Slightly increased echogenicity. No solid masses. No hydronephros is. No calcifications. LEFT KIDNEY: 10 cm. Slightly increased echogenicity. No solid masses. No hydronephrosis. No calc ifications. BLADDER: Incompletely filled but otherwise normal. Ureteral jets were not seen. OTHER FINDINGS: No other significant finding. IMPRESSION: Kidneys normal in size since slightly increased in echogenicity. No acute abnormalities . TECHNICAL DOCUMENTATION: JOB ID: [id number] [employer]- All Rights Reserved
== END ==
LOC: RAD 14:13
PROVIDERS: ATTEND Internal Medicine Nephrology
DX: N18.4 Chronic kidney disease, stage 4 (severe) (principal); I50.9 Heart failure, unspecified
CPT/HCPCS: 76770

== ENCOUNTER → 2017-01-21 | Outpatient (CLI) | payer MEDICARE, OTHER ==
[2017-01-21 12:17] LABS: HEMATOCRIT 33.8 % (37.9-51.0); HEMOGLOBIN 11.3 g/dL (13.5-17.0); HGB HCT DIFFERENCE 0.1; MEAN CORPUSCULAR HEMOGLOBIN 28.5 pg (27.0-33.4); MEAN CORPUSCULAR HGB CONC 33.4 g/dL (32.0-36.0); MEAN CORPUSCULAR VOLUME 85 fl (80-97); RED BLOOD COUNT 3.97 10^6/uL (4.35-5.55); WHITE BLOOD COUNT 8.5 10^3/uL (4.0-10.5)
[2017-01-21 12:54] LABS: ANION GAP 14 (5-19); CALCIUM 10.7 mg/dL (8.4-10.2); CARBON DIOXIDE 26 mmol/L (22-30); CHLORIDE 101 mmol/L (98-107); CREATINE KINASE 705 U/L (55-170); CREATININE RESULT 4.68 mg/dL (0.52-1.25); GLUCOSE 97 mg/dL (75-110); PHOSPHORUS 5.4 mg/dL (2.5-4.5); POTASSIUM 4.2 mmol/L (3.6-5.0); SODIUM 141.1 mmol/L (137-145)
[2017-01-21 13:04] LABS: BLOOD UREA NITROGEN 129 mg/dL (7-20)
== END ==
LOC: OD 11:19
PROVIDERS: ATTEND Internal Medicine Nephrology
DX: N18.4 Chronic kidney disease, stage 4 (severe) (principal); D50.9 Iron deficiency anemia, unspecified; I50.9 Heart failure, unspecified; E87.1 Hypo-osmolality and hyponatremia
CPT/HCPCS: 36415; 80048; 82550; 84100; 85027

== ENCOUNTER → 2017-01-28 | Outpatient (CLI) | payer MEDICARE, OTHER ==
[2017-01-28 12:25] LABS: ABSOLUTE EOSINOPHILS # (AUTO) 0.2 10^3/uL (0.0-0.6); ABSOLUTE LYMPHOCYTES (AUTO) 0.8 10^3/uL (0.5-4.7); ABSOLUTE MONOCYTES (AUTO) 0.9 10^3/uL (0.1-1.4); ABSOLUTE NEUT (AUTO) 4.1 10^3/uL (1.7-8.2); BASOPHILS % (AUTO) 0.8 % (0-2); EOSINOPHILS % (AUTO) 3.3 % (0-6); HEMATOCRIT 32.9 % (37.9-51.0); HEMOGLOBIN 10.9 g/dL (13.5-17.0); HGB HCT DIFFERENCE -0.2; MEAN CORPUSCULAR HEMOGLOBIN 28.3 pg (27.0-33.4); MEAN CORPUSCULAR HGB CONC 33.2 g/dL (32.0-36.0); MEAN CORPUSCULAR VOLUME 85 fl (80-97); MONOCYTES % (AUTO) 14.4 % (3-13); RED BLOOD COUNT 3.86 10^6/uL (4.35-5.55); RED CELL DISTRIBUTION WIDTH 15.3 % (11.5-14.0); SEGMENTED NEUTROPHILS % (AUTO) 68.5 % (42-78)
[2017-01-28 12:41] LABS: APPEARANCE,URINE CLEAR; BILIRUBIN,URINE NEGATIVE (NEGATIVE); GLUCOSE, URINE NEGATIVE (NEGATIVE); KETONES,URINE NEGATIVE (NEGATIVE); LEUKOCYTE ESTERASE,URINE NEGATIVE (NEGATIVE); NITRITE,URINE NEGATIVE (NEGATIVE); PROTEIN,URINE >=500 mg/dL (NEGATIVE); URINE SPECIFIC GRAVITY 1.015; UROBILINOGEN,URINE NEGATIVE mg/dL (<2.0)
[2017-01-28 12:46] LABS: ALANINE AMINOTRANSFERASE 37 U/L (21-72); ALKALINE PHOSPHATASE 85 U/L (38-126); ANION GAP 12 (5-19); ASPARTATE AMINO TRANSFERASE 32 U/L (17-59); BILIRUBIN,DIRECT 0.4 mg/dL (0.0-0.4); BILIRUBIN,TOTAL 0.4 mg/dL (0.2-1.3); BLOOD UREA NITROGEN 97 mg/dL (7-20); CALCIUM 10.3 mg/dL (8.4-10.2); CARBON DIOXIDE 24 mmol/L (22-30); CHLORIDE 106 mmol/L (98-107); CREATINE KINASE 665 U/L (55-170); CREATININE RESULT 3.79 mg/dL (0.52-1.25); GLUCOSE 73 mg/dL (75-110); LDH 585 U/L (313-618); MAGNESIUM 1.8 mg/dL (1.6-2.3); PHOSPHORUS 4.5 mg/dL (2.5-4.5); POTASSIUM 4.8 mmol/L (3.6-5.0); SODIUM 141.6 mmol/L (137-145); TOTAL PROTEIN 7.2 g/dL (6.3-8.2)
== END ==
LOC: OD 11:30
PROVIDERS: ATTEND Internal Medicine Nephrology
DX: N18.4 Chronic kidney disease, stage 4 (severe) (principal); I50.9 Heart failure, unspecified; E11.9 Type 2 diabetes mellitus without complications; D64.9 Anemia, unspecified
CPT/HCPCS: 36415; 80053; 81001; 82550; 83615; 83735; 83970; 84100; 85025

== ENCOUNTER → 2017-02-03 | Outpatient (CLI) | payer MEDICARE, OTHER ==
[2017-02-03 10:43] LABS: HEMOGLOBIN 10.3 g/dL (13.5-17.0); HGB HCT DIFFERENCE -0.1; MEAN CORPUSCULAR HEMOGLOBIN 28.1 pg (27.0-33.4); MEAN CORPUSCULAR HGB CONC 33.3 g/dL (32.0-36.0); MEAN CORPUSCULAR VOLUME 84 fl (80-97); RED BLOOD COUNT 3.69 10^6/uL (4.35-5.55); RED CELL DISTRIBUTION WIDTH 15.1 % (11.5-14.0); WHITE BLOOD COUNT 6.2 10^3/uL (4.0-10.5)
[2017-02-03 10:53] LABS: ALANINE AMINOTRANSFERASE 41 U/L (21-72); ALBUMIN 3.9 g/dL (3.5-5.0); ALKALINE PHOSPHATASE 84 U/L (38-126); ANION GAP 14 (5-19); ASPARTATE AMINO TRANSFERASE 32 U/L (17-59); BILIRUBIN,DIRECT 0.4 mg/dL (0.0-0.4); BILIRUBIN,TOTAL 0.4 mg/dL (0.2-1.3); BLOOD UREA NITROGEN 64 mg/dL (7-20); CALCIUM 10.1 mg/dL (8.4-10.2); CARBON DIOXIDE 23 mmol/L (22-30); CHLORIDE 106 mmol/L (98-107); CREATINE KINASE 646 U/L (55-170); CREATININE RESULT 3.64 mg/dL (0.52-1.25); GLUCOSE 72 mg/dL (75-110); MAGNESIUM 1.7 mg/dL (1.6-2.3); PHOSPHORUS 4.4 mg/dL (2.5-4.5); POTASSIUM 4.3 mmol/L (3.6-5.0); SODIUM 142.7 mmol/L (137-145)
[2017-02-04 07:15] LABS: PTH INTACT 377 pg/mL (15-65)
[2017-02-04 16:40] LABS: A/G RATIO 1.1 (0.7-1.7); ALBUMIN 2 3.6 g/dL (2.9-4.4); ALPHA-1-GLOBULIN 2 0.2 g/dL (0.0-0.4); GAMMA GLOBULIN 1.1 g/dL (0.4-1.8); PROTEIN TOTAL SERUM 6.8 g/dL (6.0-8.5)
== END ==
LOC: OD 09:25
PROVIDERS: ATTEND Internal Medicine Nephrology
DX: N18.4 Chronic kidney disease, stage 4 (severe) (principal); D64.9 Anemia, unspecified; I50.9 Heart failure, unspecified; M62.82 Rhabdomyolysis
CPT/HCPCS: 36415; 80053; 82550; 83540; 83550; 83735; 83970; 84100; 84165; 85027

== ENCOUNTER → 2017-03-04 | Outpatient (CLI) | payer MEDICARE, OTHER ==
[2017-03-04 11:34] LABS: APPEARANCE,URINE CLEAR; BILIRUBIN,URINE NEGATIVE (NEGATIVE); GLUCOSE, URINE 50 mg/dL (NEGATIVE); KETONES,URINE NEGATIVE (NEGATIVE); LEUKOCYTE ESTERASE,URINE NEGATIVE (NEGATIVE); NITRITE,URINE NEGATIVE (NEGATIVE); PROTEIN,URINE >=500 mg/dL (NEGATIVE); URINE SPECIFIC GRAVITY 1.011; UROBILINOGEN,URINE NEGATIVE mg/dL (<2.0)
[2017-03-04 11:50] LABS: HEMATOCRIT 33.2 % (37.9-51.0); HEMOGLOBIN 11.2 g/dL (13.5-17.0); HGB HCT DIFFERENCE 0.4; MEAN CORPUSCULAR HEMOGLOBIN 28.4 pg (27.0-33.4); MEAN CORPUSCULAR HGB CONC 33.9 g/dL (32.0-36.0); MEAN CORPUSCULAR VOLUME 84 fl (80-97); RED BLOOD COUNT 3.96 10^6/uL (4.35-5.55); RED CELL DISTRIBUTION WIDTH 16.2 % (11.5-14.0); WHITE BLOOD COUNT 8.3 10^3/uL (4.0-10.5)
[2017-03-04 12:16] LABS: BLOOD UREA NITROGEN 72 mg/dL (7-20); CALCIUM 9.8 mg/dL (8.4-10.2); CARBON DIOXIDE 26 mmol/L (22-30); CREATINE KINASE 671 U/L (55-170); CREATININE RESULT 3.58 mg/dL (0.52-1.25); GLUCOSE 209 mg/dL (75-110); PHOSPHORUS 5.2 mg/dL (2.5-4.5); POTASSIUM 4.6 mmol/L (3.6-5.0); SODIUM 141.8 mmol/L (137-145)
[2017-03-04 12:17] LABS: ANION GAP 15 (5-19); CHLORIDE 101 mmol/L (98-107)
[2017-03-04 12:24] LABS: HEMATOCRIT 33.2 % (37.9-51.0); HEMOGLOBIN 11.2 g/dL (13.5-17.0); HGB HCT DIFFERENCE 0.4; MEAN CORPUSCULAR HEMOGLOBIN 28.4 pg (27.0-33.4); MEAN CORPUSCULAR HGB CONC 33.9 g/dL (32.0-36.0); MEAN CORPUSCULAR VOLUME 84 fl (80-97); RED BLOOD COUNT 3.96 10^6/uL (4.35-5.55); RED CELL DISTRIBUTION WIDTH 16.2 % (11.5-14.0); WHITE BLOOD COUNT 8.3 10^3/uL (4.0-10.5)
[2017-03-04 12:57] LABS: BLOOD UREA NITROGEN 72 mg/dL (7-20); CALCIUM 9.8 mg/dL (8.4-10.2); CARBON DIOXIDE 26 mmol/L (22-30); CHLORIDE 101 mmol/L (98-107); CREATININE RESULT 3.58 mg/dL (0.52-1.25); GLUCOSE 209 mg/dL (75-110); POTASSIUM 4.6 mmol/L (3.6-5.0)
[2017-03-04 12:58] LABS: ANION GAP 15 (5-19); SODIUM 141.8 mmol/L (137-145)
[2017-03-04 13:06] LABS: ALANINE AMINOTRANSFERASE 77 U/L (21-72); ALBUMIN 3.9 g/dL (3.5-5.0); ALKALINE PHOSPHATASE 140 U/L (38-126); ASPARTATE AMINO TRANSFERASE 66 U/L (17-59); BILIRUBIN,DIRECT 0.6 mg/dL (0.0-0.4); BILIRUBIN,TOTAL 0.9 mg/dL (0.2-1.3); TOTAL PROTEIN 6.8 g/dL (6.3-8.2)
== END ==
LOC: OD 09:45
PROVIDERS: ATTEND Nurse Practitioner
DX: I12.9 Hypertensive chronic kidney disease with stage 1 through stage 4 chronic kidney disease, or unspecified chronic kidney disease (principal); N18.4 Chronic kidney disease, stage 4 (severe); E11.9 Type 2 diabetes mellitus without complications; Z79.4 Long term (current) use of insulin; D64.9 Anemia, unspecified; I25.5 Ischemic cardiomyopathy; I50.22 Chronic systolic (congestive) heart failure; Z79.899 Other long term (current) drug therapy
CPT/HCPCS: 36415; 80048; 80053; 81001; 82550; 83735; 83880; 83970; 84100; 84443; 85027

== ENCOUNTER → 2017-03-09 | Outpatient (CLI) | payer MEDICARE, OTHER ==
[2017-03-09 11:00] LABS: HEMATOCRIT 35.4 % (37.9-51.0); HEMOGLOBIN 11.8 g/dL (13.5-17.0); MEAN CORPUSCULAR HEMOGLOBIN 27.8 pg (27.0-33.4); MEAN CORPUSCULAR HGB CONC 33.5 g/dL (32.0-36.0); MEAN CORPUSCULAR VOLUME 83 fl (80-97); RED BLOOD COUNT 4.27 10^6/uL (4.35-5.55); RED CELL DISTRIBUTION WIDTH 16.5 % (11.5-14.0); WHITE BLOOD COUNT 6.8 10^3/uL (4.0-10.5)
[2017-03-09 11:27] LABS: ANION GAP 15 (5-19); BLOOD UREA NITROGEN 84 mg/dL (7-20); CALCIUM 10.3 mg/dL (8.4-10.2); CARBON DIOXIDE 25 mmol/L (22-30); CHLORIDE 101 mmol/L (98-107); CREATININE RESULT 3.64 mg/dL (0.52-1.25); GLUCOSE 359 mg/dL (75-110); POTASSIUM 4.7 mmol/L (3.6-5.0); SODIUM 141.3 mmol/L (137-145)
== END ==
LOC: OD 09:58
PROVIDERS: ATTEND Internal Medicine Nephrology
DX: N18.4 Chronic kidney disease, stage 4 (severe) (principal); D64.9 Anemia, unspecified; I50.9 Heart failure, unspecified; R80.9 Proteinuria, unspecified
CPT/HCPCS: 36415; 80048; 85027

== ENCOUNTER 2017-04-13 05:42 | Day surgery (SDC) | payer MEDICARE, OTHER ==
[2017-04-07 12:32] LABS: HEMATOCRIT 36.4 % (37.9-51.0); HEMOGLOBIN 11.8 g/dL (13.5-17.0); MEAN CORPUSCULAR HEMOGLOBIN 26.3 pg (27.0-33.4); MEAN CORPUSCULAR HGB CONC 32.4 g/dL (32.0-36.0); MEAN CORPUSCULAR VOLUME 81 fl (80-97); RED BLOOD COUNT 4.49 10^6/uL (4.35-5.55); RED CELL DISTRIBUTION WIDTH 16.9 % (11.5-14.0); WHITE BLOOD COUNT 6.8 10^3/uL (4.0-10.5)
[2017-04-07 12:52] LABS: ANION GAP 12 (5-19); BLOOD UREA NITROGEN 73 mg/dL (7-20); CALCIUM 10.6 mg/dL (8.4-10.2); CARBON DIOXIDE 26 mmol/L (22-30); CHLORIDE 100 mmol/L (98-107); CREATININE RESULT 3.85 mg/dL (0.52-1.25); GLUCOSE 335 mg/dL (75-110); POTASSIUM 5.2 mmol/L (3.6-5.0); SODIUM 138.1 mmol/L (137-145)
--- NOTE | 2017-04-07 13:07 | RADIOLOGY REPORT (SQ) ---
EXAM DESCRIPTION: CHEST PA/LATERAL COMPLETED DATE/TIME: 04/07/2017 12:47 pm REASON FOR STUDY: PRE OP COMPARISON: 01/14/2017 EXAM PARAMETERS: NUMBER OF VIEWS: two views TECHNIQUE: Digital Frontal and Lateral radiographic views of the chest acquired. RADIATION DOSE: NA LIMITATIONS: none FINDINGS: LUNGS AND PLEURA: No opacities, masses or pneumothorax. No pleural effusion. MEDIASTINUM AND HILAR STRUCTURES: No masses or contour abnormalities. HEART AND VASCULAR STRUCTURES: Heart size borderline. No failure. BONES: No acute findings. HARDWARE: Pacemaker/defibrillator. OTHER: No other significant finding. IMPRESSION: Borderline cardiomegaly. No failure. TECHNICAL DOCUMENTATION: JOB ID: [id number] [employer]- All Rights Reserved
--- NOTE | 2017-04-07 13:54 | EKG REPORT ---
SEVERITY:- ABNORMAL ECG - SINUS RHYTHM VENTRICULAR PREMATURE COMPLEX FIRST DEGREE AV BLOCK NONSPECIFIC T ABNORMALITIES, INFERIOR LEADS BORDERLINE PROLONGED QT INTERVAL : Confirmed by: Vani Suero 07-Apr-2017 13:53:35
[~2017-04-13 05:42] MED LIST changes: -BUMETANIDE INJ/PF 1 MG/4 ML SDV IV SCH; +LIDOCAINE 0.5% INJ-PF (5 MG/ML) 50 ML SDV SUBCUT PRN; +NORMAL SALINE 1000 ML (RENAL PATIENTS) IV PRN; +VANCOMYCIN HCL 500 MG in DEXTROSE 5%-WATER 100 ML IV PRN
[2017-04-13 06:25] LABS: POTASSIUM 3.6 mmol/L (3.6-5.0)
[2017-04-13] MEDS ORDERED: KETAMINE HCL INJ 500 MG/10 ML VIAL ONE (06:53)
[2017-04-13] MEDS ORDERED: FENTANYL CITRATE INJ/PF 100 MCG/2 ML AMPUL ONE (06:53)
[2017-04-13] MEDS ORDERED: DEXMEDETOMIDINE INJ 80 MCG/20 ML VIAL IV ONE (06:54)
[2017-04-13] MEDS ORDERED: PROPOFOL INJ 200 MG/20 ML VIAL IV ONE (06:54)
[2017-04-13] MEDS ORDERED: MIDAZOLAM 2 MG/2 ML INJ ONE (06:54)
[2017-04-13] MEDS ORDERED: LIDOCAINE 0.5% INJ-PF (5 MG/ML) 50 ML SDV ONE (07:42)
[2017-04-13] MEDS ORDERED: LIDOCAINE 1% INJ-PF (10 MG/ML) 30 ML SDV ONE (07:42)
[2017-04-13] MEDS ORDERED: HEPARIN SOD (PORCINE) 1,000 UNIT/ML 10 ML VIAL ONE (07:42)
[2017-04-13] MEDS ORDERED: BUPIVACAINE HCL 0.25 % INJ/PF (2.5 MG/1 ML) 30 ML VIAL ONE (07:42)
[2017-04-13] MEDS ORDERED: BACITRACIN INJ 50,000 UNIT VIAL ONE (07:43)
[2017-04-13] MEDS ORDERED: NITROGLYCERIN/D5W 0 MG/0 ML RTUINJ IV ONE (07:45)
[2017-04-13] MEDS ORDERED: PROMETHAZINE HCL INJ 25 MG/1 ML VIAL IV PRN (08:25)
[2017-04-13] MEDS ORDERED: FENTANYL CITRATE INJ/PF 100 MCG/2 ML AMPUL IV PRN ×3 (08:25)
[2017-04-13] MEDS ORDERED: DIPHENHYDRAMINE HCL 50 MG/ML VIAL IV PRN (08:25)
--- NOTE | 2017-04-13 09:11 | PDOC DISCHARGE SUMMARY ---
Discharge Summary (SDC) - Discharge Final Diagnosis: #1 chronic kidney disease stage IV. 2. Coronary artery disease. 3. Diabetes mellitus. 4. Hypertension. Date of Surgery: 04/13/17 Discharge Date: 04/13/17 Condition: Fair Treatment or Instructions: Discharge home [after recovery per ASU criteria]. Diet , [renal],as tolerated, when fully awake advance as tolerated. Activities within moderation encouraged. Follow up in my office by appointment in about [1 week]. Call for appointment. Leave wounds [covered], [keep clean and dry, until office visit in 1 week]. Hold of on school/work [until evaluation in office]. Meds per med rec, Percocet. May shower [in 48 hrs], [try to keep operated area as dry as possible]. Prescriptions: Oxycodone HCl/Acetaminophen [Percocet 5-325 mg Tablet] 1 tab PO ASDIR PRN #15 tab PRN Reason: Referrals: KRISTIN STEPHENS, [facility] [employer] [facility] [Primary Care Provider] - Discharge Diet: Other (Comments) - Renal, ADA. Respiratory Treatments at Home: Deep Breathing/Coughing Report the Following to Your Physician Immediately: Shortness of Breath, Unusual Bleeding
--- NOTE | 2017-04-13 09:16 | Operative Report ---
Operative Report DATE OF SURGERY: 04/13/17 PREOPERATIVE DIAGNOSIS: #1 chronic kidney disease stage IV. 2. Coronary artery disease. 3. Diabetes mellitus. 4. Hypertension. POSTOPERATIVE DIAGNOSIS: #1 chronic kidney disease stage IV. Post AV fistula insertion. 2. Coronary artery disease. 3. Diabetes mellitus. 4. Hypertension. OPERATION: Insertion of right forearm radiocephalic fistula. SURGEON: ADDY BLANDON MASTER DYER: SULEIMAN BARRAZA ANESTHESIA: LMAC TISSUE REMOVED OR ALTERED: Not applicable. COMPLICATIONS: None ESTIMATED BLOOD LOSS: 5 mL. INTRAOPERATIVE FINDINGS: A very nice cephalic vein a good force millimeters in diameter. The radial artery was diseased with considerable plaque. A portion in the mid forearm was selected with minimal disease. The vein was used as a patch to enlarge this portion of the artery. Inflow seemed excellent. Arterial control was actually quite good using rubber loops suggesting that this , though heavily diseased was relatively soft. Very little calcification. Evaluation of the fistula shows an excellent pulse in the vein of good 15 cm above the anastomosis. The Doppler signal was not as continuous as would be desired nor was it discontinuous as would be desired in the proximal radial artery but certainly different from the distal. Stethoscope also auscultation revealed a bruit elbow faint. Given these findings the expectation is for a good fistula. It certainly is not as satisfying as would be desired but I feel given the size of the vein this is an excellent first start. PROCEDURE: Operative Report PROCEDURE: After reviewing the procedure with the patient, he was taken to the operating room. The patient was sedated and the right upper extremity] prepared with chlorhexidine and draped out with sterile linen. After the "" universal timeout", in which it was verified that the patient [received IV antibiotics] the procedure commenced. The sterilely sheathed ultrasound probe was used to evaluate the right venous and arterial systems, pertinent to the previously done vein mapping. Local anesthesia was infiltrated and a longitudinal incision made over the mid forearm , over the most distal reasonable looking radial artery. Dissection proceeded through the subcutaneous tissues down to the radial artery. This was dissected out proximally and distally for about 2 cm. . Rubber loops were placed on either end. The cephalic vein was now dissected out for a distance of about 6 cm. The patient was given 2500 units of heparin intravenously. The cephalic vein was transected and irrigated with heparinized solution. The distal branches were clipped.. The artery was controlled proximally and distally with rubber loops. The vein was transposed into the arterial incision using a tendon passer. An arteriotomy approximately 1.5 cm in length was made, the artery was irrigated proximally and distally with heparinized solution. The transected vein was now spatulated [using a convenient branch, the so called vein mouth technique, it was then anastomosed end to end to side into the brachial artery. This was done using a continuous suture of 6-0 Prolene. Controls of the fistula were now released and it was analyzed using a Doppler probe. Hemostasis was secured once optimal function was assured, the wound was irrigated with antibiotic containing solution and closed. Closure was done using interrupted 3-0 PDS for the subcutaneous tissues. The skin was closed, in either wound, using a continuous subcutaneous suture of 4-0 Monocryl which was reinforced with Steri-Strips over benzoin. I then left the operative field and returned with a stethoscope covered with a sterile Tegaderm dressing. This allowed external auscultation of the fistula. Auscultation was borderline, fistula excellent to palpation this was accepted.. The procedure was concluded by applying a Kerlix dressing over the surgical site. DICTATING PHYSICIAN: ADDY RAYMUNDO M.D.
[2017-04-13 11:18] VITALS: BP 147/95
[2017-04-13] MEDS ORDERED: LIDOCAINE 2% INJ-PF (20 MG/ML) 2 ML AMPUL ONE (15:37)
== END 2017-04-13 11:00 | disposition home or self-care (01) ==
LOC: OROUT 05:42
PROVIDERS: ATTEND Surgery
DX: I13.0 Hypertensive heart and chronic kidney disease with heart failure and stage 1 through stage 4 chronic kidney disease, or unspecified chronic kidney disease (principal); E11.22 Type 2 diabetes mellitus with diabetic chronic kidney disease; I50.9 Heart failure, unspecified; N18.4 Chronic kidney disease, stage 4 (severe); I25.10 Atherosclerotic heart disease of native coronary artery without angina pectoris; Z88.0 Allergy status to penicillin; Z88.5 Allergy status to narcotic agent; Z79.82 Long term (current) use of aspirin; Z79.899 Other long term (current) drug therapy; Z79.02 Long term (current) use of antithrombotics/antiplatelets; I25.2 Old myocardial infarction
CPT/HCPCS: 36821; 93005; 36415 ×2; 82947; 84132; 85027; 80048; 71020; 93010; J2250; J3490 ×4; J3010; J1644; J3370; J2704

== ENCOUNTER → 2017-04-20 | Outpatient (CLI) | payer MEDICARE, OTHER ==
[2017-04-20 11:25] LABS: HEMATOCRIT 35.6 % (37.9-51.0); HEMOGLOBIN 11.4 g/dL (13.5-17.0); HGB HCT DIFFERENCE -1.4; MEAN CORPUSCULAR HEMOGLOBIN 25.6 pg (27.0-33.4); MEAN CORPUSCULAR VOLUME 80 fl (80-97); RED BLOOD COUNT 4.46 10^6/uL (4.35-5.55); RED CELL DISTRIBUTION WIDTH 17.4 % (11.5-14.0); WHITE BLOOD COUNT 7.1 10^3/uL (4.0-10.5)
[2017-04-20 11:29] LABS: APPEARANCE,URINE CLEAR; BILIRUBIN,URINE NEGATIVE (NEGATIVE); GLUCOSE, URINE 50 mg/dL (NEGATIVE); KETONES,URINE NEGATIVE (NEGATIVE); LEUKOCYTE ESTERASE,URINE NEGATIVE (NEGATIVE); NITRITE,URINE NEGATIVE (NEGATIVE); PROTEIN,URINE 100 mg/dL (NEGATIVE); URINE SPECIFIC GRAVITY 1.009; UROBILINOGEN,URINE NEGATIVE mg/dL (<2.0)
[2017-04-20 11:40] LABS: ANION GAP 13 (5-19); BLOOD UREA NITROGEN 89 mg/dL (7-20); CALCIUM 10.5 mg/dL (8.4-10.2); CARBON DIOXIDE 25 mmol/L (22-30); CHLORIDE 102 mmol/L (98-107); CREATINE KINASE 317 U/L (55-170); CREATININE RESULT 3.97 mg/dL (0.52-1.25); GLUCOSE 210 mg/dL (75-110); MAGNESIUM 2.1 mg/dL (1.6-2.3); PHOSPHORUS 5.3 mg/dL (2.5-4.5); SODIUM 139.5 mmol/L (137-145)
== END ==
LOC: OD 10:47
PROVIDERS: ATTEND Internal Medicine Nephrology
DX: I12.9 Hypertensive chronic kidney disease with stage 1 through stage 4 chronic kidney disease, or unspecified chronic kidney disease (principal); N18.4 Chronic kidney disease, stage 4 (severe); E11.9 Type 2 diabetes mellitus without complications; D64.9 Anemia, unspecified
CPT/HCPCS: 36415; 80048; 81001; 82550; 83735; 83970; 84100; 84443; 85027